=== PATIENT | male | born 1990 | race Two or more races ===

== ENCOUNTER 2020-06-22 14:29 | Outpatient (REF) | payer OTHER, SELFPAY | END 2020-06-22 14:30 | disposition home or self-care (01) | LOC: HO.LAB 14:29 | PROVIDERS: PCP Internal Medicine; Visit Provider Internal Medicine | DX: Z20.828 Contact with and (suspected) exposure to other viral communicable diseases (principal) | CPT/HCPCS: C9803; U0003 ==

== ENCOUNTER → 2020-09-06 08:17 | Outpatient (BNVA) | payer OTHER, SELFPAY | PROVIDERS: PCP Internal Medicine; Visit Provider Surgery ==

== ENCOUNTER 2020-09-25 09:13 | Outpatient (REF) | payer OTHER, SELFPAY ==
--- NOTE | ~2020-09-25 | XR_ITS ---
EXAMINATION: XR CHEST CLINICAL INFORMATION: Obesity. COMPARISON: None TECHNIQUE: 2 views of the chest were obtained. FINDINGS: No significant abnormality is noted involving the heart, lungs, mediastinum, bony thorax or soft tissues. XR/XR chest 2V IMPRESSION: Unremarkable chest examination.
--- NOTE | 2020-09-25 09:20 | ECG_ITS ---
Test Reason : E66.9 Blood Pressure : / mmHG Vent. Rate : 074 BPM Atrial Rate : 074 BPM P-R Int : 128 ms QRS Dur : 110 ms QT Int : 370 ms P-R-T Axes : 072 061 017 degrees QTc Int : 410 ms Normal sinus rhythm with sinus arrhythmia Normal ECG When compared with ECG of 17-APR-2018 20:39, Vent. rate has decreased BY 37 BPM T wave inversion no longer evident in Inferior leads Referred By: Guru Mcneil Electronically Signed By:MICHELE JOY MD
[2020-09-25 10:00] LABS: MANUAL DIFF FLAG NO
[2020-09-25 10:14] LABS: Basophils Percent Auto 0.4 % (0-2); Eosinophils Absolute Auto 0.5 X10*3/uL (0.0-0.4); Eosinophils Percent Auto 6.7 % (0-4); Hematocrit 51.2 % (42-52); Hemoglobin 17.3 g/dl (14.0-18.0); Imm Gran Abs Auto 0.02 X10*3/uL (0.00-0.03); Imm Gran Pct Auto 0.3 % (0.0-0.4); Lymphocytes Absolute Auto 2.1 X10*3/uL (1.2-4.9); Lymphocytes Percent Auto 30.3 % (20-40); Mean Corpuscular HGB Conc 33.8 g/dl (31.0-36.0); Mean Corpuscular Hemoglobin 31.1 pg (27.0-33.0); Mean Corpuscular Volume 92.1 fL (80-98); Mean Platelet Volume 10.7 fL (9.4-12.4); Monocytes Absolute Auto 0.5 X10*3/uL (0.1-1.2); Monocytes Percent Auto 6.9 % (2-11); Neutrophils Absolute Auto 3.8 X10*3/uL (2.0-8.3); Neutrophils Percent Auto 55.4 % (45-73); Platelet Count 252 X10*3/uL (160-400); Red Blood Count 5.56 X10*6/uL (4.60-5.80); Red Cell Distribution Width 11.7 % (11.0-16.0); White Blood Count 6.8 X10*3/uL (4.8-10.8)
[2020-09-25 11:02] LABS: Estimated Average Glucose 97 mg/dL
[2020-09-25 11:13] LABS: Alanine Aminotransferase 38 U/L (0-40); Albumin Level 4.3 g/dL (3.5-5.0); Alkaline Phosphatase 102 U/L (39-117); Anion Gap 13 (12-20); Aspartate Amino Transferase 25 U/L (5-37); Bilirubin Total 1.1 mg/dL (0.0-1.0); Blood Urea Nitrogen 14 mg/dL (9-16); C Reactive Protein 0.51 mg/dL (< or = 0.50); Calcium 9.2 mg/dL (8.4-10.2); Carbon Dioxide 24 mmol/L (22-29); Chloride 107 mmol/L (96-108); Cholesterol 130 mg/dL; Estimated Glomerular Filt Rate > 60; Glucose Random 95 mg/dL (60-115); HDL Cholesterol 35 mg/dL; LDL Cholesterol Calculated 65 mg/dl; Potassium 4.1 mmol/L (3.3-5.1); Sodium 140 mmol/L (135-145); Triglycerides 150 mg/dL
[2020-09-25 11:23] LABS: Folate 15.3 ng/mL (> or = 4.0); Vitamin B12 475 pg/mL (200-900)
[2020-09-25 11:25] LABS: Ferritin 228 ng/mL (20-250); TSH reflex Free T4 1.49 uIU/mL (0.32-4.0); Vitamin D 25-OH Total 12.4 ng/mL (>30)
[2020-09-26 10:32] LABS: Insulin Level Total 10.3 uIU/mL
[2020-09-26 15:22] LABS: H Pylori Breath Test DETECTED (NOT DETECTED)
[2020-09-26 16:36] LABS: Calcium (PTHI) 9.4 mg/dL (8.6-10.3); PTHI 50 pg/mL (14-64)
[2020-09-28 03:12] LABS: Zinc 96 mcg/dL (60-130)
[2020-09-29 06:42] LABS: Vitamin B1 8 nmol/L (8-30)
[2020-09-29 10:37] LABS: Vitamin A 42 mcg/dL (38-98)
== END 2020-09-25 09:14 | disposition home or self-care (01) ==
LOC: HO.LAB 09:13
PROVIDERS: PCP Internal Medicine; Visit Provider Surgery
DX: E66.9 Obesity, unspecified (principal); K21.9 Gastro-esophageal reflux disease without esophagitis; G47.30 Sleep apnea, unspecified; Z68.34 Body mass index [BMI] 34.0-34.9, adult
CPT/HCPCS: 36415; 71046; 80053; 80061; 82306; 82607; 82728; 82746; 83013; 83036; 83525; 83970; 84425; 84443; 84590; 84630; 85025; 86140; 93005; 99211

== ENCOUNTER → 2020-09-26 08:14 | Outpatient (BNVA) | payer OTHER, SELFPAY | PROVIDERS: PCP Internal Medicine; Visit Provider Surgery ==

== ENCOUNTER 2020-10-01 08:01 | Outpatient (REF) | payer OTHER, SELFPAY ==
--- NOTE | ~2020-10-01 | FL_ITS ---
EXAMINATION: XR GI SERIES CLINICAL INFORMATION: Obesity COMPARISON: None TECHNIQUE: Upper GI was performed using thin and thick barium and effervescent granules FINDINGS: Esophageal motility is normal. There is mild gastroesophageal reflux. No hernia, mass or stricture is seen. The stomach and duodenum are normal-appearing. No fold thickening, ulcer, mass or stricture is seen. FLUOROSCOPY TIME: 0.9min DOSE AREA PRODUCT: 14 foster per centimeter squared. 24 saved fluoroscopic images. FL/FL upper GI series IMPRESSION: Mild gastroesophageal reflux otherwise unremarkable exam.
--- NOTE | ~2020-10-01 | US_ITS ---
EXAMINATION: US COMPLETE ABDOMEN WITH LIVER ELASTOGRAPHY CLINICAL INFORMATION: Obesity. COMPARISON: None. TECHNIQUE: Real-time imaging of the abdominal viscera. Noninvasive ultrasound liver fibrosis assessment is performed using Brodie ElastPQ point quantification shear wave elastography (pSWE) with a C5-2 MHz transducer. Multiple elastography samples are obtained. FINDINGS: PANCREAS: The visualized pancreatic head and body are normal in appearance. The remainder of the pancreas is obscured from visualization by the overlying bowel gas. ABDOMINAL AORTA: The proximal, middle, and distal aortic segments are normal in caliber. INFERIOR VENA CAVA: Visualized portions are normal. LIVER: Normal. The liver demonstrates normal size, contour and echogenicity. No focal lesion or intrahepatic biliary duct dilatation. The right lobe measures 14.5 cm in length. The left lobe measures 10.3 cm in length. Portal flow is hepatopedal. Shear wave liver elastography median stiffness is 1.37 m/s (reference: normal median stiffness is 1.3 m/s or less). IQR/median stiffness to assess sampling precision is 0.31 (reference: good quality data set is IQR/median stiffness of 0.15 or less). GALLBLADDER: Normal. The gallbladder is physiologically distended without evidence of stones, sludge, polyps, wall thickening or pericholecystic fluid. COMMON BILE DUCT: Normal in caliber measuring 0.6 cm in diameter. RIGHT KIDNEY: Normal. No hydronephrosis. No renal calculi or focal parenchymal lesions. The kidney measures 10.9 cm in maximum dimension. LEFT KIDNEY: Normal. No hydronephrosis. No renal calculi or focal parenchymal lesions. The kidney measures 11.8 cm in maximum dimension. SPLEEN: Normal. The spleen measures 12.1 cm in maximum dimension. FREE FLUID: None. US/US abdomen comp w elastography IMPRESSION: 1. Hepatic steatosis without focal lesion. 2. Liver elastography: Median stiffness 1.37 m/s. Findings suggestive of cACLD ruled out. REFERENCE: Society of Radiologists in Ultrasound Liver Stiffness Thresholds (2020): LIVER STIFFNESS THRESHOLDS: *Liver Stiffness equal or less than 1.3 m/s: High probability of being normal. *Liver Stiffness less than 1.7 m/s: In the absence of other known clinical signs, rules out compensated advanced chronic liver disease. *Liver Stiffness 1.7-2.1 m/s: Suggestive of compensated advanced chronic liver disease but need further test for confirmation. *Liver Stiffness over 2.1 m/s: Rules in compensated advanced chronic liver disease. *Liver Stiffness over 2.4 m/s: Suggestive of clinically significant portal hypertension. QUALITY OF DATA SET: *IQR/Median value equal or less than 0.15 implies a quality data set. *IQR/Median value over 0.15 implies a poor quality data set. SIGNIFICANT CHANGE FROM PRIOR EXAM: Significant change if liver stiffness measurement is 10% or greater from prior exam. OTHER CONSIDERATIONS: The stage of liver fibrosis may be overestimated in the setting of acute hepatitis, liver inflammation, elevated liver function tests, hepatic vascular congestion, obstructive cholestasis, non-fasting state, and infiltrative diseases such as amyloidosis and lymphoma. In some patients with NAFLD, the liver stiffness thresholds for compensated advanced chronic liver disease may be lower. In causes other than viral hepatitis and NAFLD, liver stiffness thresholds are not well established.
== END 2020-10-01 08:02 | disposition home or self-care (01) ==
LOC: HO.US 08:01
PROVIDERS: PCP Internal Medicine; Visit Provider Surgery
DX: Z01.818 Encounter for other preprocedural examination (principal); E66.01 Morbid (severe) obesity due to excess calories; Z68.34 Body mass index [BMI] 34.0-34.9, adult; K21.9 Gastro-esophageal reflux disease without esophagitis; G47.30 Sleep apnea, unspecified
CPT/HCPCS: 74240; 76705; 76981

== ENCOUNTER → 2020-10-03 10:03 | Outpatient (BNVA) | payer OTHER, SELFPAY | PROVIDERS: PCP Internal Medicine; Visit Provider Dietitian, Registered ==

== ENCOUNTER 2020-10-16 13:39 | Outpatient (REF) | payer OTHER, SELFPAY ==
[2020-10-17 12:38] LABS: CT PCR NOT DETECTED (Not Detect.); NG PCR NOT DETECTED (Not Detect.)
== END 2020-10-16 13:40 | disposition home or self-care (01) ==
LOC: HO.LAB 13:39
PROVIDERS: Visit Provider Nurse Practitioner Family
DX: Z11.3 Encounter for screening for infections with a predominantly sexual mode of transmission (principal); N48.1 Balanitis
CPT/HCPCS: 87491; 87591

== ENCOUNTER → 2020-10-22 08:14 | Outpatient (BNVA) | payer OTHER, SELFPAY | PROVIDERS: PCP Internal Medicine; Visit Provider Surgery ==

== ENCOUNTER → 2020-11-14 08:20 | Outpatient (BNVA) | payer OTHER, SELFPAY | PROVIDERS: PCP Internal Medicine; Visit Provider Surgery ==

== ENCOUNTER → 2020-11-22 08:12 | Outpatient (BNVA) | payer OTHER, SELFPAY | PROVIDERS: PCP Internal Medicine; Visit Provider Dietitian, Registered | DX: E66.9 Obesity, unspecified (principal); Z68.30 Body mass index [BMI] 30.0-30.9, adult | CPT/HCPCS: 97803 ==

== ENCOUNTER → 2020-12-25 07:29 | Outpatient (BNVA) | payer OTHER, SELFPAY | PROVIDERS: PCP Internal Medicine; Visit Provider Surgery ==

== ENCOUNTER 2022-03-07 | Outpatient (REF) | payer OTHER, SELFPAY ==
[2022-03-11 11:27] LABS: H Pylori Breath Test Negative (Negative)
== END 2022-03-07 00:01 | disposition home or self-care (01) ==
LOC: HO.LNP
PROVIDERS: Visit Provider Physician Assistant Surgical
DX: E66.9 Obesity, unspecified (principal)
CPT/HCPCS: 83013

== ENCOUNTER → 2022-03-07 11:03 | Outpatient (BNVA) | payer OTHER, SELFPAY | PROVIDERS: PCP Internal Medicine; Visit Provider Physician Assistant Surgical | DX: E66.9 Obesity, unspecified (principal); Z68.34 Body mass index [BMI] 34.0-34.9, adult | CPT/HCPCS: 99211; 99212 ==

== ENCOUNTER 2022-03-12 12:08 | Outpatient (REF) | payer OTHER, SELFPAY ==
--- NOTE | 2022-03-12 12:15 | ECG_ITS ---
Test Reason : E66.9 OBESITY Blood Pressure : / mmHG Vent. Rate : 079 BPM Atrial Rate : 079 BPM P-R Int : 130 ms QRS Dur : 096 ms QT Int : 388 ms P-R-T Axes : 050 053 037 degrees QTc Int : 444 ms Normal sinus rhythm Normal ECG When compared with ECG of 25-SEP-2020 08:30, No significant change was found Referred By: Maurisio Lo Electronically Signed By:ALEJANDRA SEVILLA
[2022-03-12 12:37] LABS: MANUAL DIFF FLAG NO
[2022-03-12 13:40] LABS: Basophils Percent Auto 0.4 % (0-2); Eosinophils Absolute Auto 0.5 X10*3/uL (0.0-0.4); Eosinophils Percent Auto 6.1 % (0-4); Hematocrit 50.1 % (42.0-52.0); Hemoglobin 16.9 g/dl (14.0-18.0); Imm Gran Abs Auto 0.02 X10*3/uL (0.00-0.03); Imm Gran Pct Auto 0.3 % (0.0-0.4); Lymphocytes Absolute Auto 1.8 X10*3/uL (1.2-4.9); Lymphocytes Percent Auto 23.1 % (20-40); Mean Corpuscular HGB Conc 33.7 g/dl (31.0-36.0); Mean Corpuscular Hemoglobin 30.8 pg (27.0-33.0); Mean Corpuscular Volume 91.3 fL (80.0-98.0); Monocytes Absolute Auto 0.5 X10*3/uL (0.1-1.2); Monocytes Percent Auto 6.5 % (2-11); Neutrophils Absolute Auto 4.9 x10*3/uL (2.0-8.3); Neutrophils Percent Auto 63.6 % (45-73); Platelet Count 250 X10*3/uL (160-400); Red Blood Count 5.49 X10*6/uL (4.60-5.80); Red Cell Distribution Width 11.5 % (11.0-16.0); White Blood Count 7.7 X10*3/uL (4.8-10.8)
[2022-03-12 13:52] LABS: Estimated Average Glucose 97 mg/dL
[2022-03-12 14:16] LABS: Alanine Aminotransferase 49 U/L (0-40); Albumin Level 4.2 g/dL (3.5-5.0); Alkaline Phosphatase 99 U/L (39-117); Anion Gap 16 (12-20); Aspartate Amino Transferase 26 U/L (5-37); Bilirubin Total 1.2 mg/dL (0.0-1.0); Blood Urea Nitrogen 18 mg/dL (9-16); C Reactive Protein 0.87 mg/dL (< or = 0.50); Calcium 9.4 mg/dL (8.4-10.2); Carbon Dioxide 23 mmol/L (22-29); Chloride 103 mmol/L (96-108); Cholesterol 140 mg/dL; Estimated Glomerular Filt Rate > 60; Glucose Random 93 mg/dL (60-115); HDL Cholesterol 42 mg/dL; Iron 176 mcg/dL (45-160); LDL Cholesterol Calculated 61 mg/dl; Percent Iron Saturation 40 % (15-50); Potassium 4.3 mmol/L (3.3-5.1); Sodium 138 mmol/L (135-145); Total Iron Binding Capacity 435 mcg/dL (228-428); Total Protein 7.2 g/dL (6.5-8.0); Triglycerides 189 mg/dL; Unsaturated Iron Binding 259 ug/dL
[2022-03-12 14:26] LABS: Ferritin 353 ng/mL (20-250); Insulin 34 uU/mL (2-29); TSH reflex Free T4 1.72 uIU/mL (0.32-4.0); Vitamin D 25-OH Total 9.4 ng/mL (>30)
[2022-03-12 14:43] LABS: Folate 9.8 ng/mL (> or = 4.0); Vitamin B12 315 pg/mL (200-900)
[2022-03-13 12:26] LABS: Calcium (PTHI) 9.6 mg/dL (8.6-10.3); PTHI 42 pg/mL (16-77)
[2022-03-16 08:22] LABS: Zinc 70 mcg/dL (60-130)
[2022-03-17 13:37] LABS: Vitamin B1 6 nmol/L (8-30)
[2022-03-19 00:51] LABS: Vitamin A 55 mcg/dL (38-98)
== END 2022-03-12 12:09 | disposition home or self-care (01) ==
LOC: HO.LAB 12:08
PROVIDERS: PCP Internal Medicine; Visit Provider Physician Assistant Surgical
DX: E66.9 Obesity, unspecified (principal)
CPT/HCPCS: 36415; 80053; 80061; 82306; 82607; 82728; 82746; 83036; 83525; 83540; 83970; 84425; 84443; 84590; 84630; 85025; 86140; 93005

== ENCOUNTER → 2022-04-01 09:00 | Outpatient (BNVA) | payer OTHER, SELFPAY | PROVIDERS: PCP Internal Medicine; Referring Provider Physician Assistant Surgical; Visit Provider Counselor Mental Health | DX: F43.20 Adjustment disorder, unspecified (principal); E66.9 Obesity, unspecified | CPT/HCPCS: 90791 ==

== ENCOUNTER → 2022-04-03 10:17 | Outpatient (BNVA) | payer OTHER, SELFPAY | PROVIDERS: PCP Internal Medicine; Visit Provider Dietitian, Registered | DX: E66.9 Obesity, unspecified (principal); Z68.33 Body mass index [BMI] 33.0-33.9, adult | CPT/HCPCS: 97802 ==

== ENCOUNTER 2022-12-19 13:30 | Outpatient (REF) | payer OTHER, SELFPAY ==
[2022-12-19 13:49] LABS: MANUAL DIFF FLAG NO
[2022-12-19 13:57] LABS: Basophils Percent Auto 0.1 % (0-2); Eosinophils Absolute Auto 0.1 X10*3/uL (0.0-0.4); Eosinophils Percent Auto 1.3 % (0-4); Hematocrit 49.7 % (42.0-52.0); Hemoglobin 17.4 g/dl (14.0-18.0); Imm Gran Abs Auto 0.02 X10*3/uL (0.00-0.03); Imm Gran Pct Auto 0.2 % (0.0-0.4); Lymphocytes Absolute Auto 1.9 X10*3/uL (1.2-4.9); Lymphocytes Percent Auto 22.7 % (20-40); Mean Corpuscular Hemoglobin 31.1 pg (27.0-33.0); Mean Corpuscular Volume 88.9 fL (80.0-98.0); Mean Platelet Volume 10.8 fL (9.4-12.4); Monocytes Absolute Auto 0.4 X10*3/uL (0.1-1.2); Monocytes Percent Auto 4.2 % (2-11); Neutrophils Absolute Auto 5.9 x10*3/uL (2.0-8.3); Neutrophils Percent Auto 71.5 % (45-73); Platelet Count 192 X10*3/uL (160-400); Red Blood Count 5.59 X10*6/uL (4.60-5.80); Red Cell Distribution Width 11.6 % (11.0-16.0); White Blood Count 8.3 X10*3/uL (4.8-10.8)
[2022-12-19 14:13] LABS: Estimated Average Glucose 94 mg/dL; Hemoglobin A1c % 4.9 %
[2022-12-19 14:46] LABS: Alanine Aminotransferase 46 U/L (0-40); Albumin Level 4.4 g/dL (3.5-5.0); Alkaline Phosphatase 91 U/L (39-117); Anion Gap 15 (12-20); Aspartate Amino Transferase 30 U/L (5-37); Bilirubin Total 1.4 mg/dL (0.0-1.0); Blood Urea Nitrogen 13 mg/dL (9-16); Calcium 9.6 mg/dL (8.4-10.2); Carbon Dioxide 21 mmol/L (22-29); Chloride 106 mmol/L (96-108); Cholesterol 144 mg/dL; Estimated Glomerular Filt Rate > 60; Glucose Fasting 90 mg/dL (60-99); HDL Cholesterol 32 mg/dL; LDL Cholesterol Calculated 80 mg/dl; Potassium 4.3 mmol/L (3.3-5.1); Sodium 138 mmol/L (135-145); Total Protein 7.6 g/dL (6.5-8.0); Triglycerides 160 mg/dL
[2022-12-19 15:17] LABS: Folate 12.7 ng/mL (> or = 4.0); TSH reflex Free T4 1.23 uIU/mL (0.32-4.0); Vitamin B12 521 pg/mL (200-900); Vitamin D 25-OH Total 14.4 ng/mL (>30)
== END 2022-12-19 13:31 | disposition home or self-care (01) ==
LOC: HO.LAB 13:30
PROVIDERS: PCP Internal Medicine; Visit Provider Nurse Practitioner Family
DX: I10 Essential (primary) hypertension (principal); J45.909 Unspecified asthma, uncomplicated; K21.9 Gastro-esophageal reflux disease without esophagitis; Z72.0 Tobacco use
CPT/HCPCS: 36415; 80053; 80061; 82306; 82607; 82746; 83036; 84443; 85025

== ENCOUNTER 2023-02-10 13:31 | Outpatient (AMB) | payer OTHER, SELFPAY ==
--- NOTE | 2023-02-10 13:41 | A.OFFVIS_ITS ---
Intake VS Expanded 02/10/23 13:52 Height 5 ft 11 in Weight 258 lb 6.108 oz BMI 36.0 BP 159/90 H Blood Pressure Location Lt brachial Blood Pressure Position Sitting Pulse 90 Temp 97.7 F Temperature Source Temporal Artery Scan Pulse Oximetry 97 Oxygen Delivery Method Room Air Body Fat 87 Body Fat Percentage 34.1 Free Fat Mass 168.0 Muscle Mass 159.8 Visceral Mass 15.0 Water Mass 118.0 BMR 2,330 Neck Circumference 17 in Waist Circumference 3 ft 11 in Intake Visit Reasons: (OV) Gastric Balloon *ARRIVE AT 1 PM* Intake Note: Patient here for gastric balloon consult. Reports rx for Liraglutide (Saxenda) denied by health insurance. Destination Specialist Required: No Rock Climbing Instructor: Rock Climbing Instructor offered & declined Accompanied by: Self / Same As Patient Allergies fluoxetine [Prozac] Allergy (Unknown, Verified 02/10/23 13:52) Unknown Wellbutrin Allergy (Unknown, Uncoded 02/10/23 13:52) Unknown Medication List - Last Reconciled 02/10/23 by Matty Marquez MD albuterol sulfate 2.5 mg (3 mL) inhalation Q4-6H PRN 90 days albuterol sulfate 90 mcg/actuation 1 inh inhalation Q4-6H PRN cholecalciferol (vitamin D3) 50 mcg PO DAILY fluticasone propion-salmeterol 250-50 mcg/dose (Advair Diskus) 1 inh inhalation BID hydrochlorothiazide 12.5 mg PO DAILY nebulizers (Aeroneb Go Nebulizer) As directed nicotine 1 patch transdermal DAILY HPI HPI Comments History of Present Illness Details The patient is a 32-year-old gentleman with a history of obstructive sleep apnea on CPAP, hypertension, asthma, GERD was a cigarette smoker. He is interested in Orbera gastric balloon because of a lifelong struggle with obesity and the afore mentioned comorbidities. Patient enrolled in the surgical weight loss program here at [facility] 09/06/20 , was noted to be H pylori positive but negative on the retest and dropped out somewhere between December 25, 2020 and 03/07/2022. He reestablished entry into the surgical weight loss program 03/07/2022 and dropped out again. Per PCP notes from 12/18/22, the patient enrolled in [facility] program Nov, 2022 and reports that due to a recurring issue with appointments being canceled and rescheduled, he decided to return here. The patient presents today at a weight of 258 lb/BMI 36.0. He reports his heaviest weight as 258/BMI 36.0. He has tried numerous medical weight loss methods, all resulted in eventual weight regain. The patient notes that his cigarette smoking his increased to 7-8 cigarettes a day with resultant worsening of GERD as well as increased in weight. He notes that he lives with his fiancee, who is also a smoker with a weight problem and his [id number] who is a smoker who is also obese. Data from his original entry in 2020: ESS 10 GERD 16 (not satisfied with management) DAVID 2 QOL 103 PFSH Medical History Asthma Back pain GERD (gastroesophageal reflux disease) Hypertension Surgical History No pertinent past surgical history Family History Father Myocardial infarction Mother HTN (hypertension) Diabetes Maternal Grandmother Stomach cancer Maternal Grandfather Prostate cancer Maternal Aunt Metastasis to breast Maternal Aunt Breast cancer Brother No problems noted. Brother No problems noted. Brother No problems noted. Brother No problems noted. Sister No problems noted. Daughter No problems noted. Social History Household Members: Family Housing: Apartment Alcohol intake: current Alcohol intake frequency: a few times a week Patient Tobacco Use Status: Current everyday Tobacco user Tobacco use type: Cigarette Cigarettes Per Day: 5 e-Cigarette/Vaping Use: Never Used Second Hand Smoke Exposure: No Current occupational status: employed Cognitive needs: No Hearing needs: No Vision needs: No Review of Systems Const All systems reviewed & are unremarkable except as noted in HPI and below Reports as per HPI Physical Exam The patient is non-toxic & in good spirits NC/AT, PERRLA, EOMI Mood, affect & judgment all appear appropriate Sclera anicteric conjunctiva pink and moist The patient is in no acute respiratory distress Abdomen is obese Assessment & Plan Assessment & Plan (1) BMI 35.0-35.9,adult: Code(s): Z68.35 - Body mass index [BMI] 35.0-35.9, adult (2) Hypertension: Code(s): I10 - Essential (primary) hypertension (3) Obstructive sleep apnea: Comment: Mild 2018 Code(s): G47.33 - Obstructive sleep apnea (adult) (pediatric) (4) Asthma: Code(s): J45.909 - Unspecified asthma, uncomplicated (5) Tobacco abuse: Code(s): Z72.0 - Tobacco use Plan Using a teaching rough rice tender, I reviewed options including medical weight loss, surgical weight loss and the Orbera balloon. The importance of proper diet, increased activity and mandate of nicotine cessation was discussed with the patient and apparently understood. We reviewed the inherent risks of the Orbera balloon including aspiration, perforation, intolerance, weight regain; the patient stated candidly he cannot afford the procedure due to the out of pocket cost and wanted more information regarding sleeve gastrectomy. We reviewed options regarding gastric bypass and sleeve gastrectomy. I think the patient is an excellent candidate for sleeve gastrectomy and he would like to proceed. The importance of diet, exercise and weight loss in the inherent risk of weight regain if maladaptive eating and sedentary behavior return as well as the risks of nicotine use were discussed and apparently understood. The patient would like to re-enter the surgical weight loss program and realizes that he will need a plan regarding nicotine cessation. I will see him back in 3 weeks. Medications: New pantoprazole 40 mg PO DAILY 30 tabs 2RF Coding Level of Care Code Est Pt Level 5 (12144) Diagnoses BMI 35.0-35.9,adult Z68.35 Hypertension I10 Obstructive sleep apnea G47.33 Asthma J45.909 Tobacco abuse Z72.0 Time Spent (min) 66
[2023-02-10 13:52] VITALS: BP 159/90; PULSE 90; TEMP 36.5; O2SAT 97; BMI 36.0
== END 2023-02-10 14:00 | disposition home or self-care (01) ==
PROVIDERS: PCP Internal Medicine; Visit Provider Surgery
DX: E66.01 Morbid (severe) obesity due to excess calories (principal); Z68.35 Body mass index [BMI] 35.0-35.9, adult
CPT/HCPCS: 99215

== ENCOUNTER → 2023-02-10 13:31 | Outpatient (BNVA) | payer OTHER, SELFPAY | PROVIDERS: PCP Internal Medicine; Visit Provider Surgery | DX: A04.8 Other specified bacterial intestinal infections (principal); K21.9 Gastro-esophageal reflux disease without esophagitis; J45.909 Unspecified asthma, uncomplicated; I10 Essential (primary) hypertension; E55.9 Vitamin D deficiency, unspecified; G47.33 Obstructive sleep apnea (adult) (pediatric); Z68.35 Body mass index [BMI] 35.0-35.9, adult; Z72.0 Tobacco use; Z99.89 Dependence on other enabling machines and devices | CPT/HCPCS: 99212 ==

== ENCOUNTER 2023-02-17 14:20 | Outpatient (AMB) | payer OTHER, SELFPAY ==
--- NOTE | 2023-02-17 14:08 | A.OFFVIS_ITS ---
Intake Intake Visit Reasons: VIDEO Initial Nutrition SWL Allergies fluoxetine [Prozac] Allergy (Unknown, Verified 02/10/23 13:52) Unknown Wellbutrin Allergy (Unknown, Uncoded 02/10/23 13:52) Unknown HPI Nutrition Presentation Details I met with patient last year 2021 Reason for consult elevated BMI Diet Assmnt Details 2 meals per day cottage cheese for lunch; dinner was 7oz pork chop in the oven and broccoli and rice Was using premier protein shakes premade- plans to continue to use these but [facility]. Exercise: I haven't started exercising, I don't have an excuse I'm just lazy . Has a treadmill in basement Completed all online classes and scored well in Mar 2022. He is receptive to taking them again. Dietary counseling reduction Diagnosis Nutrition problem #1 overweight/obesity As related to (etiology) #1 excess energy intake and physical inactivity As evidenced by (sign/symptom) #1 high BMI Monitoring/Goals Nutrition problem monitoring total energy intake, level of knowledge/skill, total PRO intake, total CHO intake, weight and oral fluids Outcome progress progressing Learning/Education Readiness to learn excellent Stages of change action Educational materials provided Yes Most Recent Diabetes Results: Cholesterol 144 mg/dL 12/19/22 HDL Cholesterol 32 mg/dL 12/19/22 Triglycerides 160 mg/dL 12/19/22 Creatinine 0.81 mg/dL (0.5-1.4) 12/19/22 Blood Urea Nitrogen 13 mg/dL (9-16) 12/19/22 Sodium 138 mmol/L (135-145) 12/19/22 Potassium 4.3 mmol/L (3.3-5.1) 12/19/22 Chloride 106 mmol/L (96-108) 12/19/22 Carbon Dioxide 21 mmol/L (22-29) L 12/19/22 Calcium 9.6 mg/dL (8.4-10.2) 12/19/22 AST 30 U/L (5-37) 12/19/22 ALT 46 U/L (0-40) H 12/19/22 Total Protein 7.6 g/dL (6.5-8.0) 12/19/22 Albumin 4.4 g/dL (3.5-5.0) 12/19/22 PFSH Medical History Asthma Back pain GERD (gastroesophageal reflux disease) Hypertension Surgical History No pertinent past surgical history Family History Father Myocardial infarction Mother HTN (hypertension) Diabetes Maternal Grandmother Stomach cancer Maternal Grandfather Prostate cancer Maternal Aunt Metastasis to breast Maternal Aunt Breast cancer Brother No problems noted. Brother No problems noted. Brother No problems noted. Brother No problems noted. Sister No problems noted. Daughter No problems noted. Social History Household Members: Family Housing: Apartment Alcohol intake: current Alcohol intake frequency: a few times a week Patient Tobacco Use Status: Current everyday Tobacco user Tobacco use type: Cigarette Cigarettes Per Day: 5 e-Cigarette/Vaping Use: Never Used Second Hand Smoke Exposure: No Current occupational status: employed Cognitive needs: No Hearing needs: No Vision needs: No Assessment & Plan Assessment & Plan (1) Obesity (BMI 30-39.9): Code(s): E66.9 - Obesity, unspecified Patient Instructions: Pt will likely be a good candidate. When he is able to begin his protein shakes, he will start with one for breakfast in the AM, continue the rest of eating routine. Will take classes up 1-6 and follow up in 1 month Telehealth Telehealth Location of provider rendering services: practice address Location of patient: address on file Patient Identification confirmed using: Name, : Yes Telehealth method: video Patient verbally consented to treatment: Yes Patient verbally consented to billing insurance company: Yes Patient informed of any privacy concerns related to visit: Yes Minutes spent on Phone/Video with Pt.: 30 Coding Level of Care Code Nutr Indiv Subseq (54499) Diagnoses Obesity (BMI 30-39.9) E66.9 Time Spent (min) 30
== END 2023-02-17 14:33 | disposition home or self-care (01) ==
LOC: HO.HBS 14:20
PROVIDERS: PCP Internal Medicine; Visit Provider Dietitian, Registered
DX: E66.9 Obesity, unspecified (principal)

== ENCOUNTER → 2023-02-17 14:20 | Outpatient (BNVA) | payer OTHER, SELFPAY | PROVIDERS: PCP Internal Medicine; Visit Provider Dietitian, Registered | DX: E66.9 Obesity, unspecified (principal) | CPT/HCPCS: 97803 ==

== ENCOUNTER 2023-03-02 13:36 | Outpatient (REF) | payer OTHER, SELFPAY ==
[2023-03-02 13:59] LABS: MANUAL DIFF FLAG NO
[2023-03-02 14:40] LABS: Basophils Percent Auto 0.3 % (0-2); Eosinophils Absolute Auto 0.2 X10*3/uL (0.0-0.4); Eosinophils Percent Auto 3.1 % (0-4); Hematocrit 49.5 % (42.0-52.0); Hemoglobin 17.3 g/dl (14.0-18.0); Imm Gran Abs Auto 0.02 X10*3/uL (0.00-0.03); Imm Gran Pct Auto 0.3 % (0.0-0.4); Lymphocytes Absolute Auto 1.7 X10*3/uL (1.2-4.9); Lymphocytes Percent Auto 26.8 % (20-40); Mean Corpuscular HGB Conc 34.9 g/dl (31.0-36.0); Mean Corpuscular Hemoglobin 31.4 pg (27.0-33.0); Mean Corpuscular Volume 89.8 fL (80.0-98.0); Mean Platelet Volume 10.8 fL (9.4-12.4); Monocytes Absolute Auto 0.4 X10*3/uL (0.1-1.2); Monocytes Percent Auto 6.5 % (2-11); Neutrophils Absolute Auto 4.1 x10*3/uL (2.0-8.3); Platelet Count 230 X10*3/uL (160-400); Red Blood Count 5.51 X10*6/uL (4.60-5.80); Red Cell Distribution Width 11.9 % (11.0-16.0); White Blood Count 6.5 X10*3/uL (4.8-10.8)
[2023-03-02 14:50] LABS: Estimated Average Glucose 94 mg/dL; Hemoglobin A1c % 4.9 % (<6.0)
[2023-03-02 15:18] LABS: Alanine Aminotransferase 40 U/L (0-40); Albumin Level 4.3 g/dL (3.5-5.0); Alkaline Phosphatase 91 U/L (39-117); Anion Gap 14 (12-20); Aspartate Amino Transferase 32 U/L (5-37); Bilirubin Total 0.9 mg/dL (0.0-1.0); Blood Urea Nitrogen 11 mg/dL (9-16); C Reactive Protein 0.63 mg/dL (< or = 0.50); Calcium 9.9 mg/dL (8.4-10.2); Carbon Dioxide 29 mmol/L (22-29); Chloride 105 mmol/L (96-108); Cholesterol 137 mg/dL (<200); Estimated Glomerular Filt Rate > 60; Glucose Random 91 mg/dL (60-115); HDL Cholesterol 44 mg/dL (>40); Iron 149 mcg/dL (45-160); LDL Cholesterol Calculated 67 mg/dL (<100); Percent Iron Saturation 38 % (15-50); Potassium 4.5 mmol/L (3.3-5.1); Sodium 143 mmol/L (135-145); Total Iron Binding Capacity 391 mcg/dL (228-428); Total Protein 7.6 g/dL (6.5-8.0); Triglycerides 134 mg/dL (<150); Unsaturated Iron Binding 242 ug/dL
[2023-03-02 15:34] LABS: Ferritin 244 ng/mL (20-250); Insulin 13 uU/mL (2-29)
[2023-03-02 15:46] LABS: Folate 8.5 ng/mL (> or = 4.0); Vitamin B12 364 pg/mL (200-900)
[2023-03-03 14:13] LABS: Calcium (PTHI) 9.6 mg/dL (8.6-10.3); PTHI 70 pg/mL (16-77)
[2023-03-05 12:54] LABS: Zinc 74 mcg/dL (60-130)
[2023-03-05 14:36] LABS: H Pylori Breath Test Negative (Negative)
[2023-03-06 02:44] LABS: Vitamin A 49 mcg/dL (38-98)
[2023-03-06 13:17] LABS: Vitamin B1 <6 nmol/L (8-30)
== END 2023-03-02 13:37 | disposition home or self-care (01) ==
LOC: HO.LAB 13:36
PROVIDERS: PCP Internal Medicine; Visit Provider Surgery
DX: A04.8 Other specified bacterial intestinal infections (principal); K21.9 Gastro-esophageal reflux disease without esophagitis; E55.9 Vitamin D deficiency, unspecified; G47.33 Obstructive sleep apnea (adult) (pediatric); I10 Essential (primary) hypertension; Z72.0 Tobacco use
CPT/HCPCS: 36415; 80053; 80061; 82306; 82607; 82728; 82746; 83013; 83036; 83525; 83540; 83970; 84425; 84443; 84590; 84630; 85025; 86140; 99212

== ENCOUNTER 2023-03-02 14:01 | Outpatient (AMB) | payer OTHER, SELFPAY ==
--- NOTE | 2023-03-02 14:08 | A.OFFVIS_ITS ---
Intake VS Expanded 03/02/23 14:09 Height 5 ft 11 in Weight 249 lb 14.4 oz BMI 34.9 BP 158/100 H Blood Pressure Location Rt brachial Blood Pressure Position Sitting Pulse 98 Pulse Source Pulse Oximeter Temp 97.5 F Temperature Source Tympanic Pulse Oximetry 99 Oxygen Delivery Method Room Air Body Fat 81.2 Body Fat Percentage 32.5 Free Fat Mass 168.2 Muscle Mass 160.0 Visceral Mass 14.0 Water Mass 119.0 BMR 2,323 Intake Visit Reasons: (OV) F/U SWL + H.Pylori Training And Development Officer Required: No Instructor Ground Services: Instructor Ground Services offered & declined Allergies fluoxetine [Prozac] Allergy (Unknown, Verified 03/02/23 14:18) Unknown Wellbutrin Allergy (Unknown, Uncoded 03/02/23 14:18) Unknown HPI HPI Comments History of Present Illness Details The patient is a 32-year-old gentleman with a history of obstructive sleep apnea on CPAP, hypertension, asthma, GERD was a cigarette smoker. He is interested in laparoscopic sleeve gastrectomy because of numerous attempts of medical weight loss with resultant weight regain. Patient enrolled in the surgical weight [place] program [place] [facility] [place]06[place] , was noted to be H pylori positive but negative on the retest and dropped out somewhere between December 25, 2020 and 03/07/2022. He reestablished entry into the surgical weight loss program 03/07/2022 and dropped out again. Per PCP notes from 12/18/22, the patient enrolled in [facility] program Nov, 2022 and reports that due to a recurring issue with appointments being canceled and rescheduled, he decided to return here. The patient presents today with a weight of 249.4, which is down 9lbs from his last visit, which was his heaviest adult weight of 258 lb/BMI 36.0. We reviewed his pre surgical goal weight of 232 lb after 25 lb of weight loss/10% of his entry weight. We also reviewed the importance of nicotine cessation which will include not using nicotine gum, nicotine lozenges or nicotine patches since they cause gastric acid production which can cause surgical complications. He met with Luciana Thompson and is following her recommendations regarding diet without any issues. He does note some bowel irregularity which we disc ussed and ongoing GERD which will be managed with Protonix. The patient notes that his cigarette smoking has decreased to 5-6 cigarettes a day. He is still experiencing GERD in spite of his 9 lb weight loss and was unable to obtain his Protonix due to insurance changes; he requested that I resubmitted Protonix to [facility] on [address] in check a P which was done today. He notes that he lives with his fiangeloe, who is also a smoker with a weight problem and his [id number] who is a smoker who is also obese. Meal plan: Patient awakens 07:30am patient goes to bed at midnight to 00:30am He is having a Premier protein premade shake with 30 g of protein Lunch is usually around noon to 01:00 o'clock and includes 8 oz of cottage cheese Patient's dinner is 6 oz of lean protein with green vegetables, usually bra clear spinach His current snacks include Quest chips. 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 His current exercise regime is treadmill with alternating inclines for 45 minutes 3 days a week The goal to increase to 4 days per week was discussed and the patient will proceed Data from his original entry in 2020: ESS 10 GERD 16 (not satisfied with management) DAVID 2 QOL 103 PFSH Medical History Asthma Back pain GERD (gastroesophageal reflux disease) Hypertension Surgical History No pertinent past surgical history Family History Father Myocardial infarction Mother HTN (hypertension) Diabetes Maternal Grandmother Stomach cancer Maternal Grandfather Prostate cancer Maternal Aunt Metastasis to breast Maternal Aunt Breast cancer Brother No problems noted. Brother No problems noted. Brother No problems noted. Brother No problems noted. Sister No problems noted. Daughter No problems noted. Social History Household Members: Family Housing: Apartment Alcohol intake: current Alcohol intake frequency: a few times a week Patient Tobacco Use Status: Current everyday Tobacco user Tobacco use type: Cigarette Cigarettes Per Day: 5 e-Cigarette/Vaping Use: Never Used Second Hand Smoke Exposure: No Current occupational status: employed Cognitive needs: No Hearing needs: No Vision needs: No Review of Systems Const All systems reviewed & are unremarkable except as noted in HPI and below Reports as per HPI Physical Exam Vital Signs: Last Vital Signs Temp 97.5 F 03/02/23 14:09 Pulse 98 03/02/23 14:09 BP 158/100 H 03/02/23 14:09 Pulse Ox 99 03/02/23 14:09 Oxygen Delivery Method Room Air 03/02/23 14:09 BMI result Body Mass Index 34.9 On exam he is anicteric and nontoxic He is in no acute respiratory distress Abdomen is obese and soft with no tenderness No lower extremity edema is present on today's visit Results Reviewed Results Reviewed: Diagnostic imaging Scheduled for March 30 Patient tested fasting labs today, 03/02 Assessment & Plan Assessment & Plan (1) BMI 34.0-34.9,adult: Code(s): Z68.34 - Body mass index [BMI] 34.0-34.9, adult (2) GERD (gastroesophageal reflux disease): Code(s): K21.9 - Gastro-esophageal reflux disease without esophagitis (3) Obstructive sleep apnea: Comment: Mild 2018 Code(s): G47.33 - Obstructive sleep apnea (adult) (pediatric) (4) Asthma: Code(s): J45.909 - Unspecified asthma, uncomplicated (5) Tobacco abuse: Code(s): Z72.0 - Tobacco use (6) Hypertension: Code(s): I10 - Essential (primary) hypertension Plan The patient is congratulated on his ongoing healthy lifestyle changes and 9 lb weight loss. He remains interested in laparoscopic sleeve gastrectomy and understands that he needs to lose 10% or 25 lb to reach a goal weight of 232 lb for surgery. In addition, he needs to quit all nicotine use a month before surgery and it is recommended to abstain from nicotine for the rest of his life. This is to minimize the risks of gastric ulceration/gastritis, healing complications that could promote hernia and also the increased risk for cardiovascular issues, cancer and premature . Patient does note the home situation is difficult regarding his fiancee and mother smoking. Will discuss at his next visit Patient will continue his current meal plan. He will increase his exercise to 4 times a week and if he can tolerated, increase to to 5 times per week. He will reach out to me with any questions regarding his meal plan. Patient will obtain his Protonix and begin taking; he has working with his PCP regarding nicotine cessation; inulin fiber gummy will be started regarding his bowel issues/constipation; if he has no resolution or problems, alternate plan of docusate was discussed. Patient will see me for 45 minute visit after March 30 so we can review both his labs and diagnostic imaging. He is set a goal to be nicotine free at that visit. Typical postoperative recommendations regarding 1-2 weeks out of work to concentrate on his health and the importance of hydration, following the postoperative meal plan was discussed and apparently understood. Patient is understandably anxious to proceed with surgery, hopefully this year. Medications: New inulin (Fiber Gummies) 2 grams PO BID-TID 60 tabs 4RF constipation pantoprazole 40 mg PO QAM 30 days 30 tabs 4RF Discontinued pantoprazole Discontinued Reason: Doctor's Order 40 mg PO DAILY 30 tabs 2RF Coding Level of Care Code Est Pt Level 4 (23253) Diagnoses BMI 34.0-34.9,adult Z68.34 GERD (gastroesophageal reflux disease) K21.9 Obstructive sleep apnea G47.33 Asthma J45.909 Tobacco abuse Z72.0 Hypertension I10
[2023-03-02 14:09] VITALS: BP 158/100; PULSE 98; TEMP 36.4; O2SAT 99; BMI 34.9
== END 2023-03-02 14:50 | disposition home or self-care (01) ==
PROVIDERS: PCP Internal Medicine; Visit Provider Surgery
DX: E66.9 Obesity, unspecified (principal); Z68.34 Body mass index [BMI] 34.0-34.9, adult; K21.9 Gastro-esophageal reflux disease without esophagitis; G47.33 Obstructive sleep apnea (adult) (pediatric); J45.909 Unspecified asthma, uncomplicated
CPT/HCPCS: 99214

== ENCOUNTER → 2023-03-12 13:07 | Outpatient (BNVA) | payer OTHER, SELFPAY | PROVIDERS: PCP Internal Medicine; Visit Provider Dietitian, Registered | DX: E66.9 Obesity, unspecified (principal); Z68.34 Body mass index [BMI] 34.0-34.9, adult; Z71.3 Dietary counseling and surveillance | CPT/HCPCS: 97803 ==

== ENCOUNTER 2023-03-18 13:00 | Outpatient (AMB) | payer OTHER, SELFPAY ==
--- NOTE | 2023-03-18 13:19 | A.OFFWM_ITS ---
Intake Intake Visit Reasons: VIDEO BH Intake Allergies fluoxetine [Prozac] Allergy (Unknown, Verified 03/02/23 14:18) Unknown Wellbutrin Allergy (Unknown, Uncoded 03/02/23 14:18) Unknown [facility] Medical History Asthma Back pain GERD (gastroesophageal reflux disease) Hypertension Surgical History No pertinent past surgical history Family History Father Myocardial infarction Mother HTN (hypertension) Diabetes Maternal Grandmother Stomach cancer Maternal Grandfather Prostate cancer Maternal Aunt Metastasis to breast Maternal Aunt Breast cancer Brother No problems noted. Brother No problems noted. Brother No problems noted. Brother No problems noted. Sister No problems noted. Daughter No problems noted. Social History Household Members: Family Housing: Apartment Alcohol intake: current Alcohol intake frequency: a few times a week Patient Tobacco Use Status: Current everyday Tobacco user Tobacco use type: Cigarette Cigarettes Per Day: 5 e-Cigarette/Vaping Use: Never Used Second Hand Smoke Exposure: No Current occupational status: employed Cognitive needs: No Hearing needs: No Vision needs: No Behavioral Health Assessment Weight Management Therapy Therapy Notes Details Pt is a 32 years old male, who presents for behavioral health assessment as part of surgical weight-loss program. PT was in the program last year but had to stop due to life challenges. PT states he has a history of depression and been in counseling before, however denied past hospitalization/crisis for behavioral health. Also, denies any past and/or current safety concerns around SI and/or self-other harm. PT smokes cigarettes and use alcohol on weekends, which he's aware of need to stop any substance use pre and post surgery. PT also reported concerns in emotional eating and scores from BES indicate high risk for binge eating, he also had high scores in PHQ-9. Pt is not cleared today and will need to follow up in about a month. Presenting Concerns Referral Source WMP Provider. Reason for referral Weight loss surgery evaluation Precipitating Event Obesity, sleep apnea and high blood pressure. Living Situation Current Living Situation Rent At risk of losing current housing? No Satisfied with current living situation? Yes Comments Pt lives with his fiangelo and his 3 year old daughter. 11 year old step-son lives communications department chairperson with them. Food/Weight/Diet Expectations of change Achieve a healthy weight. History/Relationship with food PT reports at times when stressed he either overeats or had no appetite. Before starting the program he usually skipped meals (breakfast/lunch), then had a big dinner. I am a foodie, I love food. PT stated that he has never been a snacker. He would eat pork, rice, and beans growing up, everything was fried he reported. Pt stated that he eats, pork, rice, pasta, larger portions, some periods of frequent take out food, bagels, pizza. Pt also would skips meals during the day and then would eat most of his calories at the end of the day. History/Relationship with weight When started high school he was already over 200Lbs. Then has slowly gained more weight thought the years. In 2014 he was able to get down to 180Lbs. History/Relationship with dieting Self diets, Nutrisystem, meal service, potion control, weight watchers, noon, did WMP in 2021. Pt also started WMP at [facility] couple months ago (november 2022). Binge Eating Do you frequently eat large amounts of food in short periods of time, not feeling physically hungry? Yes Do you feel out of control when you eat a large amount of food in a short period of time? No Do you eat large amounts of food rapidly and typically alone? Yes Night Eating Do you wake up at least once during the night to eat? No If you wake up in the night, do you find that it is necessary to eat something in order to fall back asleep? No Do you have little or no appetite in the morning and feel very hungry in the evening, often overeating between dinner and when you go to bed? Yes Social History Family history and relationship Pt lives with his priya? and their 3 year old daughter. Pt is one of 5 siblings. He was born in [place], [place] and raised in [place] by his mother who was a single mother. 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 Community support Medical providers. [employer] Cultural/Ethnic information Legal Involvement and History Current or historical involvement with the legal system? none Education Highest grade completed Associate's Degree in social work. Preferred learning style Auditory, Verbal, Written, Learn by doing and Visual Currently enrolled in educational program? Yes (Finishing his bachelors degree.) Interested in further educational program? Yes Educational Interests/Skills PT wants to finish a masters in Social Work, specialize in clinical social work. 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 No Meaningful activities family activities. Financial Situation Describe current financial situation Comfortable Financial assistance? None Service Service? No Mental Health and Addiction Treatment Current/Past substance abuse? Yes Comments -PT reports he mostly drinks on the week ends, usually 3-4 drinks on Fridays and Saturdays. When started the program was drinking more. -Going trough a small cessation to be ab le to get surgery. Smokes 2 cigarettes at day. Current/Past addictive behavior concerns? No Psychiatric history PT reports a history of Depression. Was in counseling over 10 years ago. He stop going as he was feeling good. He doesn't take any medication for depression. PT denies any past hopsitalization, crisis or SI/Se;f-harm. Pain Screening Current pain? Yes Pain in the last few months? Yes Comments Generalized body pain (knees, arms). Diagnosed in the past with arthritis then Dx changed to generalized chronic pain. Medications Is the patient compliant with medications? Yes Does the patient have Crooks Guardian in place? Not applicable Does the patient use complimentary health approaches? No Trauma/Abuse History History of trauma? No Questionnaires PHQ-9 Over the last 2 weeks, how often have you been bothered by any of the following problems? 1. Little interest or pleasure in doing things: more than half the days 2. Feeling down, depressed, or hopeless: more than half the days 3. Trouble falling or staying asleep, or sleeping too much: nearly every day 4. Feeling tired or having little energy: nearly every day 5. Poor appetite or overeating: not at all 6. Feeling bad about yourself - or that you are a failure or have let yourself or your family down: several days 7. Trouble concentrating on things, such as reading the newspaper or watching television: not at all 8. Moving or speaking so slowly that other people could have noticed. Or the opposite - being so fidgety or restless that you have been moving around a lot more than usual: several days 9. Thoughts that you would be better off or of hurting yourself in some way: not at all Total score: 12 Source: Developed by Drs. Darian Khan, Mita Proctor, Vinh Richmond and colleagues, with an educational marge from [employer]. Binge Eating Scale Group 1 A. I don't feel self-conscious about my wt. or body size when I'm with others. B. I feel concerned about how I look to others, but it normally does not make me fell disappointed with myself C. I do get self-conscious about my appearance and wt. which makes me feel disappointed in myself. D. I feel very self-conscious about my wt. and frequently I feel intense shame and disgust for myself. I try to avoid social contacts because of my self- consciousness. Response Group 1: D Group 2 A. I don't have any difficulty eating slowly in the proper manner. B. Although I seem to gobble down foods, I don't end up feeling stuffed because of eating to much. C. At times, I tend to eat quickly and then, I feel uncomfortably full afterwards. D. I have the habit of bolting down my food, without really chewing it. When this happens I usually feel uncomfortably stuffed because I've eaten to much. Response Group 2: C Group 3 A. I feel capable to control my eating urges when I want to. B. I feel like I have failed to control my eating more than the average person. C. I feel utterly helpless when it comes to feeling in control of my eating urges. D. Because I feel so helpless about controlling my eating I have become very desperate about trying to get control. Response Group 3: D Group 4 A. I don't have the habit of eating when I'm bored. B. I sometimes eat when I'm bored, but often I'm able to get busy and get my mind off food. C. I have a regular habit of eating when I'm bored, but occasionally, I can use some other activity to get my mind off eating. D. I have a strong habit of eating when I'm bored. Nothing seems to help me breath the habit. Response Group 4: D Group 5 A. I'm usually physically hungry when I eat something. B. Occasionally, I eat something on impulse even though I really am not hungry. C. I have the regular habit of eating foods, that I might not really enjoy, to satisfy a hungry feeling even though physically, I don't need the food. D. Although I'm not physically hungry, I get a hungry feeling in my mouth that only seems to be satisfied when I eat a food, like sandwich, that fills my mouth. Sometimes, when I eat the food to satisfy my mouth hunger, I then spit the food out so I won't gain weight. Response Group 5: B Group 6 A. I don't feel any guilt or self-hate after I overeat. B. After I overeat, occasionally I feel guilt or self-hate. C. Almost all the time I experience strong guilt or self-hate after I overeat. Response Group 6: B Group 7 A. I don't lose total control of my eating when dieting even after periods when I overeat. B. Sometimes when I eat a forbidden food on a diet, I feel like I blew it and eat even more. C. Frequently, I have the habit of saying to myself, I've blown it now, why not go all the way, when I overeat on a diet. When that happens I eat more. D. I have a regular habit of starting a strict diets for myself but I break the diets by going on an eating binge. My life seems to be either a feast or famine. Response Group 7: C Group 8 A. I rarely eat so much food that I feel uncomfortably stuffed afterwards. B. Usually about once a month, I each such a quantity of food, I end up feeling very stuffed. C. I have regular periods during the month when I eat large amounts of food, either at mealtime or at snacks. D. I eat so much food that I regularly feel quite uncomfortable after eating and sometimes a bit nauseous. Response Group 8: C Group 9 A. My level of calorie intake does not go up very high or go down very low on a regular basis. B. Sometimes after I overeat, I will try to reduce my caloric intake to almost nothing to compensate for the excess calories I've eaten. C. I have a regular habit of overeating during the night. It seems that my routine is not to be hungry in the morning but overeat in the evening. D. In my adult years, I have had week-long periods where I practically starve myself. This follows periods when I overeat. It seems I live a life of either feast or famine. Response Group 9: B Group 10 A. I usually am able to stop eating when I want to. I know when enough is enough. B. Every so often, I experience a compulsion to eat which I can't seem to control. C. Frequently, I experience strong urges to eat which I seem unable to control, but at other times I can control my eating urges. D. I feel incapable of controlling urges to eat. I have a fear of not being able to stop eating voluntarily. Response Group 10: C Group 11 A. I don't have any problem stopping eating when I feel full. B. I usually can stop eating when I feel full but occasionally overeat leaving me feeling uncomfortably stuffed. C. I have a problem stopping eating once I start and usually I feel uncomforta sarthak stuffed after I eat a meal. D. Because I have a problem not being able to stop eating when I want, I sometimes have to induce vomiting to relieve my stuffed feeling. Response Group 11: B Group 12 A. I seem to eat just as much when I'm with others, Family social gatherings as when I'm by myself. B. Sometimes, when I'm with other persons, I don't eat as much as I want to eat because I'm self-conscious about my eating. C. Frequently, I eat only a small amount of food when others are present, because I'm very embarrassed about my eating. D. I feel so ashamed about overeating that I pick times to overeat when I know no one will see me. I feel like a closet eater. Response Group 12: B Group 13 A. I eat three meals a day with only an occasional between meal snack. B. I eat 3 meals a day, but I also normally snack between meals. C. When I am snacking heavily, I get in the habit of skipping regular meals. D. There are regular periods when I seem to be continually eating, with no planned meals. Response Group 13: C Group 14 A. I don't think much about trying to control unwanted eating urges. B. At least some of the time, I feel my thoughts are pre-occupied with trying to control my eating urges. C. I feel that frequently I spend much time thinking about how much I ate or about trying not to eat anymore. D. It seems to me that most of my waking hours are pre-occupied by thoughts about eating or not eating. I feel like I'm constantly struggling not to eat. Response Group 14: C Group 15 A. I don't think about food a great deal. B. I have strong craving for food but they last only for brief periods of time. C. I have days when I can't seem to think about anything else but food. D. Most of my days seem to be pre-occupied with thoughts about food. I feel like I live to eat. Response Group 15: B Group 16 A. I usually know whether or not I'm physically hungry. I take the right portion of food to satisfy me. B. Occasionally, I feel uncertain about knowing whether or not I'm physically hungry. A these times it's hard to know how much food I should take to satisfy me. C. Even though I might know how many calories I should eat, I don't have any idea what is a normal amount of food for me. Response Group 16: B Binge Eating Score: 28 Score less than 17 Minimal Risk Score between 18-26 Moderate Risk Score between 27-46 High Risk Assessment & Plan Assessment & Plan (1) Tobacco abuse: Code(s): Z72.0 - Tobacco use (2) Adjustment disorder, unspecified: Code(s): F43.20 - Adjustment disorder, unspecified Qualifiers: Adjustment disorder type: unspecified type Qualified Code(s): F43.20 - Adjustment disorder, unspecified (3) Obesity: Code(s): E66.9 - Obesity, unspecified Plan PT not cleared today. Will need to repeat BES and PHQ-9 due to high scores. F/up in about 1 month. Telehealth Telehealth Location of provider rendering services: other Location of patient: other (Pt was at work in [place], [place].) Patient Identification confirmed using: Name, : Yes Telehealth method: voice only Patient verbally consented to treatment: Yes Patient verbally consented to billing insurance company: Yes Patient informed of any privacy concerns related to visit: Yes Minutes spent on Phone/Video with Pt.: 45 Coding Level of Care Code New Pt Tele Psy Diag Eval (56144) Patient Type New Diagnoses Tobacco abuse Z72.0 Adjustment disorder, unspecified type F43.20 Adjustment disorder type: unspecified type Obesity E66.9 Time Spent (min) 45
== END 2023-03-18 14:00 | disposition home or self-care (01) ==
LOC: HO.HBST 13:31
PROVIDERS: PCP Internal Medicine; Visit Provider Counselor Mental Health
DX: F43.20 Adjustment disorder, unspecified (principal); Z72.0 Tobacco use; E66.9 Obesity, unspecified
CPT/HCPCS: 90791

== ENCOUNTER → 2023-03-18 13:00 | Outpatient (BNVA) | payer OTHER, SELFPAY | PROVIDERS: PCP Internal Medicine; Visit Provider Counselor Mental Health ==

== ENCOUNTER 2023-03-31 07:57 | Outpatient (REF) | payer OTHER, SELFPAY ==
--- NOTE | ~2023-03-31 | US_ITS ---
EXAMINATION: US COMPLETE ABDOMEN WITH LIVER ELASTOGRAPHY CLINICAL INFORMATION: Obesity COMPARISON: Previous exam September 2020 TECHNIQUE: Real-time imaging of the abdominal viscera. Noninvasive ultrasound liver fibrosis assessment is performed using Brodie ElastPQ point quantification shear wave elastography (2D-SWE) with a C5-2 MHz transducer. Multiple elastography samples are obtained. FINDINGS: PANCREAS: Not well visualized overlying bowel gas. ABDOMINAL AORTA: The proximal and distal aortic segments are normal in caliber. The mid abdominal aorta is not well visualized due to bowel INFERIOR VENA CAVA: Visualized portions are normal. LIVER: Liver echotexture is slightly increased. The liver is normal in size and contour.. No focal lesion or intrahepatic biliary duct dilatation. The right lobe measures 14.6 cm in length. The left lobe measures 10.3 cm in length. Portal flow is normal/hepatopedal Shear wave liver elastography median stiffness is 1.46 m/s (reference: normal median stiffness is 1.3 m/s or less). This is increased from 1.37 on September 2020 exam. IQR/median stiffness to assess sampling precision is 0.21 (reference: good quality data set is IQR/median stiffness of 0.15 or less). GALLBLADDER: Normal. The gallbladder is physiologically distended without evidence of stones, sludge, polyps, wall thickening or pericholecystic fluid. COMMON BILE DUCT: Normal in caliber measuring 0.3 cm in diameter. RIGHT KIDNEY: Normal. No hydronephrosis. No renal calculi or focal parenchymal lesions. The kidney measures 12 cm in maximum dimension. LEFT KIDNEY: Normal. No hydronephrosis. No renal calculi or focal parenchymal lesions. The kidney measures 12 cm in maximum dimension. SPLEEN: Normal. The spleen measures 12.7 cm in maximum dimension. FREE FLUID: None. US/US abdomen comp w elastography IMPRESSION: 1. Impression: Slightly echogenic liver probably representing fatty infiltration. Limited visualization of the pancreas and abdominal aorta. 2. Liver elastography: Limited due to sampling error. Slightly elevated liver stiffness slightly increased from September 2020 exam. REFERENCE: Society of Radiologists in Ultrasound Liver Stiffness Thresholds (2020): LIVER STIFFNESS THRESHOLDS: *Liver Stiffness equal or less than 1.3 m/s: High probability of being normal. *Liver Stiffness less than 1.7 m/s: In the absence of other known clinical signs, rules out compensated advanced chronic liver disease. *Liver Stiffness 1.7-2.1 m/s: Suggestive of compensated advanced chronic liver disease but need further test for confirmation. *Liver Stiffness over 2.1 m/s: Rules in compensated advanced chronic liver disease. *Liver Stiffness over 2.4 m/s: Suggestive of clinically significant portal hypertension. QUALITY OF DATA SET: *IQR/Median value equal or less than 0.15 implies a quality data set. *IQR/Median value over 0.15 implies a poor quality data set. SIGNIFICANT CHANGE FROM PRIOR EXAM: Significant change if liver stiffness measurement is 10% or greater from prior exam. OTHER CONSIDERATIONS: The stage of liver fibrosis may be overestimated in the setting of acute hepatitis, liver inflammation, elevated liver function tests, hepatic vascular congestion, obstructive cholestasis, non-fasting state, and infiltrative diseases such as amyloidosis and lymphoma. In some patients with NAFLD, the liver stiffness thresholds for compensated advanced chronic liver disease may be lower. In causes other than viral hepatitis and NAFLD, liver stiffness thresholds are not well established.
--- NOTE | ~2023-03-31 | FL_ITS ---
EXAMINATION: XR FLUOROSCOPY UPPER GI WITH AIR CLINICAL INFORMATION: Preop bariatric. Patient has mild GERD. COMPARISON: 10/01/2020 TECHNIQUE: Fluoroscopic air contrast upper GI examination was performed utilizing standard techniques with thin and thick barium and effervescent granules. Numerous spot images were obtained. FINDINGS: No gross hypopharyngeal abnormality. No tracheal penetration or aspiration seen. Dual and single contrast images of the esophagus demonstrate normal caliber, contour, and mucosal pattern. No evidence of stricture, mass, or ulcerations identified. Esophageal peristalsis was normal. There is a questionable tiny type I hiatus hernia present. Mild gastroesophageal reflux was noted during the course of the examination, to the level of the aortic arch. Dual contrast and single contrast images of the stomach demonstrated normal contour and mucosal pattern without evidence of mass, ulceration, or other abnormality. Contrast freely passed into the gastric antrum and duodenal bulb without delay. Single and air-contrast images of the duodenal bulb demonstrate no abnormality. The duodenal sweep has a normal appearance, course, and mucosal fold appearance. The imaged jejunum and proximal ileum have a normal fold pattern and caliber. Mildly rapid transit of contrast noted into the mid and distal small bowel by the end of the examination. This is of uncertain etiology or significance. FLUOROSCOPY TIME: 3 minutes 15 seconds Number of Spot Images: 18 exposures DOSE AREA PRODUCT: [id number] uGy-m2 (microgray-meter squared) FL/FL upper GI w air IMPRESSION: 1. Questionable tiny type I hiatus hernia. Otherwise normal esophagus, stomach, duodenal bulb, and sweep. 2. Mild gastroesophageal reflux noted to the level of the aortic arch. 3. Somewhat fast transit of contrast through the small bowel to the mid ileal level. This is of uncertain significance or etiology. The imaged small bowel has normal fold pattern and caliber.
--- NOTE | ~2023-03-31 | XR_ITS ---
EXAMINATION: XR CHEST CLINICAL INFORMATION: Body mass index elevated COMPARISON: 09/25/2020 TECHNIQUE: 2 views of the chest were obtained. FINDINGS: There is no gross pneumothorax. Heart size is normal. No pleural effusion. No focal consolidation to suggest pneumonia. XR/XR chest 2V IMPRESSION: No evidence of pneumonia.
--- NOTE | 2023-03-31 09:35 | ECG_ITS ---
Test Reason : high bmi Blood Pressure : / mmHG Vent. Rate : 074 BPM Atrial Rate : 074 BPM P-R Int : 126 ms QRS Dur : 096 ms QT Int : 388 ms P-R-T Axes : 064 055 036 degrees QTc Int : 430 ms Normal sinus rhythm Normal ECG When compared with ECG of 12-MAR-2022 12:11, No significant change was found Referred By: Matty Marquez Electronically Signed By:ALEJANDRA SEVILLA
== END 2023-03-31 07:58 | disposition home or self-care (01) ==
LOC: HO.US 07:57
PROVIDERS: PCP Internal Medicine; Visit Provider Surgery
DX: Z01.818 Encounter for other preprocedural examination (principal); E66.9 Obesity, unspecified; Z68.35 Body mass index [BMI] 35.0-35.9, adult; K21.9 Gastro-esophageal reflux disease without esophagitis; I10 Essential (primary) hypertension; A04.8 Other specified bacterial intestinal infections; E55.9 Vitamin D deficiency, unspecified; J45.909 Unspecified asthma, uncomplicated; G47.33 Obstructive sleep apnea (adult) (pediatric); Z72.0 Tobacco use
CPT/HCPCS: 71046; 74246; 76705; 76981; 93005

== ENCOUNTER → 2023-03-31 08:00 | Outpatient (BNV) | payer OTHER, SELFPAY | PROVIDERS: PCP Internal Medicine; Visit Provider Radiology Diagnostic Radiology | DX: K21.9 Gastro-esophageal reflux disease without esophagitis (principal) | CPT/HCPCS: 74246 ==

== ENCOUNTER 2023-04-06 11:00 | Outpatient (REF) | payer OTHER, SELFPAY ==
[2023-04-12 00:23] LABS: Cotinine, U <2 ng/mL; Nicotine, U <2 ng/mL
== END 2023-04-06 11:01 | disposition home or self-care (01) ==
LOC: HO.LAB 11:00
PROVIDERS: Absent Provider Surgery; PCP Internal Medicine; Visit Provider Counselor Mental Health
DX: E66.9 Obesity, unspecified (principal); Z68.35 Body mass index [BMI] 35.0-35.9, adult; E55.9 Vitamin D deficiency, unspecified; G47.33 Obstructive sleep apnea (adult) (pediatric); I10 Essential (primary) hypertension; E51.9 Thiamine deficiency, unspecified; Z72.0 Tobacco use; K21.9 Gastro-esophageal reflux disease without esophagitis
CPT/HCPCS: 80323; 99212

== ENCOUNTER 2023-04-06 11:00 | Outpatient (AMB) | payer OTHER, SELFPAY ==
--- NOTE | 2023-04-06 11:13 | MHC.WMTHER ---
Intake Intake Visit Reasons: VIDEO BH F/U Allergies fluoxetine [Prozac] Allergy (Unknown, Verified 03/02/23 14:18) Unknown Wellbutrin Allergy (Unknown, Uncoded 03/02/23 14:18) Unknown [facility] Medical History Asthma Back pain GERD (gastroesophageal reflux disease) Hypertension Surgical History No pertinent past surgical history Family History Father Myocardial infarction Mother HTN (hypertension) Diabetes Maternal Grandmother Stomach cancer Maternal Grandfather Prostate cancer Maternal Aunt Metastasis to breast Maternal Aunt Breast cancer Brother No problems noted. Brother No problems noted. Brother No problems noted. Brother No problems noted. Sister No problems noted. Daughter No problems noted. Social History Household Members: Family Housing: Apartment Alcohol intake: current Alcohol intake frequency: a few times a week Patient Tobacco Use Status: Current everyday Tobacco user Tobacco use type: Cigarette Cigarettes Per Day: 5 e-Cigarette/Vaping Use: Never Used Second Hand Smoke Exposure: No Current occupational status: employed Cognitive needs: No Hearing needs: No Vision needs: No Behavioral Health Assessment Weight Management Therapy Therapy Notes Details PT presents for a f/up after intake on 03/18. Today we repeated BES and PHQ-9. We also discussed behavioral changes patient have done and reflected on his commitment with surgical weight-loss program. PT states he's measuring portions as indicated, feeling canales than before after meals and not eating more after is done with a shake/meal as he feels satisfied. He's practicing mindful eating and engaging in other activities such as cleaning when have cravings or thooughts arounf food. He also quit cigarettes 2 weeks ago as he got sick. On the other hand, today's cores from BES suggest low risk for binge eating behavior and PHQ- scores also showed no active symptoms/concerns with depression. Mental status exam is withing normal limits, suggesting person's functioning is not impaired, thus the patient is cleared from the behavioral health standpoint. Presenting Concerns Referral Source WMP Provider. Reason for referral Weight loss surgery evaluation Precipitating Event Obesity, sleep apnea and high blood pressure. Living Situation Current Living Situation Rent At risk of losing current housing? No Satisfied with current living situation? Yes Comments Pt lives with his fiance and his 3 year old daughter. 11 year old step-son lives parts designer with them. Food/Weight/Diet Expectations of change Achieve a healthy weight. History/Relationship with food PT reports at times when stressed he either overeats or had no appetite. Before starting the program he usually skipped meals (breakfast/lunch), then had a big dinner. I am a foodie, I love food. PT stated that he has never been a snacker. He would eat pork, rice, and beans growing up, everything was fried he reported. Pt stated that he eats, pork, rice, pasta, larger portions, some periods of frequent take out food, bagels, pizza. Pt also would skips meals during the day and then would eat most of his calories at the end of the day. History/Relationship with weight When started high school he was already over 200Lbs. Then has slowly gained more weight thought the years. In 2014 he was able to get down to 180Lbs. History/Relationship with dieting Self diets, Nutrisystem, meal service, potion control, weight watchers, noon, did WMP in 2021. Pt also started WMP at [facility] couple months ago (november 2022). Binge Eating Do you frequently eat large amounts of food in short periods of time, not feeling physically hungry? Yes Do you feel out of control when you eat a large amount of food in a short period of time? No Do you eat large amounts of food rapidly and typically alone? Yes Night Eating Do you wake up at least once during the night to eat? No If you wake up in the night, do you find that it is necessary to eat something in order to fall back asleep? No Do you have little or no appetite in the morning and feel very hungry in the evening, often overeating between dinner and when you go to bed? Yes Social History Family history and relationship Pt lives with his priya? and their 3 year old daughter. Pt is one of 5 siblings. He was born in [place], [place] and raised in [place] by his mother who was a single mother. Parental/Familial vamp stitcher obligations children Developmental history and status no issues Social support Fianc?. Community support Medical providers. Orthodox/Spirituality Druze Cultural/Ethnic information Legal Involvement and History Current or historical involvement with the legal system? none Education Highest grade completed Associate's Degree in social work. Preferred learning style Auditory, Verbal, Written, Learn by doing and Visual Currently enrolled in educational program? Yes (Finishing his bachelors degree.) Interested in further educational program? Yes Educational Interests/Skills PT wants to finish a masters in Social Work, specialize in clinical social work. 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 No Meaningful activities family activities. Financial Situation Describe current financial situation Comfortable Financial assistance? None Service Service? No Mental Health and Addiction Treatment Current/Past substance abuse? Yes Comments -PT reports he mostly drinks on the weekends, usually 3-4 drinks on Fridays and Saturdays. When started the program was drinking more. -quit smocking 2 weeks ago. Current/Past addictive behavior concerns? No Psychiatric history PT reports a history of Depression. Was in counseling over 10 years ago. He stop going as he was feeling good. He doesn't take any medication for depression. PT denies any past hopsitalization, crisis or SI/Se;f-harm. Pain Screening Current pain? Yes Pain in the last few months? Yes Comments Generalized body pain (knees, arms). Diagnosed in the past with arthritis then Dx changed to generalized chronic pain. Medications Is the patient compliant with medications? Yes Does the patient have Crooks Guardian in place? Not applicable Does the patient use complimentary health approaches? No Trauma/Abuse History History of trauma? No Questionnaires PHQ-9 Over the last 2 weeks, how often have you been bothered by any of the following problems? 1. Little interest or pleasure in doing things: not at all 2. Feeling down, depressed, or hopeless: not at all 3. Trouble falling or staying asleep, or sleeping too much: not at all 4. Feeling tired or having little energy: not at all 5. Poor appetite or overeating: not at all 6. Feeling bad about yourself - or that you are a failure or have let yourself or your family down: not at all 7. Trouble concentrating on things, such as reading the newspaper or watching television: not at all 8. Moving or speaking so slowly that other people could have noticed. Or the opposite - being so fidgety or restless that you have been moving around a lot more than usual: not at all 9. Thoughts that you would be better off or of hurting yourself in some way: not at all Total score: 0 Depression Screening Interpretation: Negative 38422 - PHQ-9 Billing: Yes Source: Developed by Drs. Darian Khan, Mita Proctor, Vinh Richmond and colleagues, with an educational marge from [employer]. Binge Eating Scale Group 1 A. I don't feel self-conscious about my wt. or body size when I'm with others. B. I feel concerned about how I look to others, but it normally does not make me fell disappointed with myself C. I do get self-conscious about my appearance and wt. which makes me feel disappointed in myself. D. I feel very self-conscious about my wt. and frequently I feel intense shame and disgust for myself. I try to avoid social contacts because of my self-consciousness. Response Group 1: D Group 2 A. I don't have any difficulty eating slowly in the proper manner. B. Although I seem to gobble down foods, I don't end up feeling stuffed because of eating to much. C. At times, I tend to eat quickly and then, I feel uncomfortably full afterwards. D. I have the habit of bolting down my food, without really chewing it. When this happens I usually feel uncomfortably stuffed because I've eaten to much. Response Group 2: B (Was a C before. ) Group 3 A. I feel capable to control my eating urges when I want to. B. I feel like I have failed to control my eating more than the average person. C. I feel utterly helpless when it comes to feeling in control of my eating urges. D. Because I feel so helpless about controlling my eating I have become very desperate about trying to get control. Response Group 3: B (Before was a D.) Group 4 A. I don't have the habit of eating when I'm bored. B. I sometimes eat when I'm bored, but often I'm able to get busy and get my mind off food. C. I have a regular habit of eating when I'm bored, but occasionally, I can use some other activity to get my mind off eating. D. I have a strong habit of eating when I'm bored. Nothing seems to help me breath the habit. Response Group 4: B (Before was a D. Finding himself doing other activities when dealing with this thoughts. ) Group 5 A. I'm usually physically hungry when I eat something. B. Occasionally, I eat something on impulse even though I really am not hungry. C. I have the regular habit of eating foods, that I might not really enjoy, to satisfy a hungry feeling even though physically, I don't need the food. D. Although I'm not physically hungry, I get a hungry feeling in my mouth that only seems to be satisfied when I eat a food, like sandwich, that fills my mouth. Sometimes, when I eat the food to satisfy my mouth hunger, I then spit the food out so I won't gain weight. Response Group 5: B Group 6 A. I don't feel any guilt or self-hate after I overeat. B. After I overeat, occasionally I feel guilt or self-hate. C. Almost all the time I experience strong guilt or self-hate after I overeat. Response Group 6: A Group 7 A. I don't lose total control of my eating when dieting even after periods when I overeat. B. Sometimes when I eat a forbidden food on a diet, I feel like I blew it and eat even more. C. Frequently, I have the habit of saying to myself, I've blown it now, why not go all the way, when I overeat on a diet. When that happens I eat more. D. I have a regular habit of starting a strict diets for myself but I break the diets by going on an eating binge. My life seems to be either a feast or famine. Response Group 7: C (Hasn't loss control this time.) Group 8 A. I rarely eat so much food that I feel uncomfortably stuffed afterwards. B. Usually about once a month, I each such a quantity of food, I end up feeling very stuffed. C. I have regular periods during the month when I eat large amounts of food, either at mealtime or at snacks. D. I eat so much food that I regularly feel quite uncomfortable after eating and sometimes a bit nauseous. Response Group 8: C Group 9 A. My level of calorie intake does not go up very high or go down very low on a regular basis. B. Sometimes after I overeat, I will try to reduce my caloric intake to almost nothing to compensate for the excess calories I've eaten. C. I have a regular habit of overeating during the night. It seems that my routine is not to be hungry in the morning but overeat in the evening. D. In my adult years, I have had week-long periods where I practically starve myself. This follows periods when I overeat. It seems I live a life of either feast or famine. Response Group 9: A Group 10 A. I usually am able to stop eating when I want to. I know when enough is enough. B. Every so often, I experience a compulsion to eat which I can't seem to control. C. Frequently, I experience strong urges to eat which I seem unable to control, but at other times I can control my eating urges. D. I feel incapable of controlling urges to eat. I have a fear of not being able to stop eating voluntarily. Response Group 10: A (Before was C.) Group 11 A. I don't have any problem stopping eating when I feel full. B. I usually can stop eating when I feel full but occasionally overeat leaving me feeling uncomfortably stuffed. C. I have a problem stopping eating once I start and usually I feel uncomfortably stuffed after I eat a meal. D. Because I have a problem not being able to stop eating when I want, I sometimes have to induce vomiting to relieve my stuffed feeling. Response Group 11: A Group 12 A. I seem to eat just as much when I'm with others, Family social gatherings as when I'm by myself. B. Sometimes, when I'm with other persons, I don't eat as much as I want to eat because I'm self-conscious about my eating. C. Frequently, I eat only a small amount of food when others are present, because I'm very embarrassed about my eating. D. I feel so ashamed about overeating that I pick times to overeat when I know no one will see me. I feel like a closet eater. Response Group 12: B Group 13 A. I eat three meals a day with only an occasional between meal snack. B. I eat 3 meals a day, but I also normally snack between meals. C. When I am snacking heavily, I get in the habit of skipping regular meals. D. There are regular periods when I seem to be continually eating, with no planned meals. Response Group 13: A (Before C. Following meal plan.) Group 14 A. I don't think much about trying to control unwanted eating urges. B. At least some of the time, I feel my thoughts are pre-occupied with trying to control my eating urges. C. I feel that frequently I spend much time thinking about how much I ate or about trying not to eat anymore. D. It seems to me that most of my waking hours are pre-occupied by thoughts about eating or not eating. I feel like I'm constantly struggling not to eat. Response Group 14: A (Before was C) Group 15 A. I don't think about food a great deal. B. I have strong craving for food but they last only for brief periods of time. C. I have days when I can't seem to think about anything else but food. D. Most of my days seem to be pre-occupied with thoughts about food. I feel like I live to eat. Response Group 15: B Group 16 A. I usually know whether or not I'm physically hungry. I take the right portion of food to satisfy me. B. Occasionally, I feel uncertain about knowing whether or not I'm physically hungry. A these times it's hard to know how much food I should take to satisfy me. C. Even though I might know how many calories I should eat, I don't have any idea what is a normal amount of food for me. Response Group 16: B Binge Eating Score: 14 Score less than 17 Minimal Risk Score between 18-26 Moderate Risk Score between 27-46 High Risk Assessment & Plan Assessment & Plan (1) Tobacco abuse: Code(s): Z72.0 - Tobacco use (2) Adjustment disorder, unspecified: Code(s): F43.20 - Adjustment disorder, unspecified Qualifiers: Adjustment disorder type: unspecified type Qualified Code(s): F43.20 - Adjustment disorder, unspecified (3) Obesity: Code(s): E66.9 - Obesity, unspecified Plan After re-assessing eating behavior and administering the BES and PHQ-9, scores and patient statements reflects a positive change with eating behavior, mindset and progress towards habit building to reach weight-loss goals. PT is cleared from the behavioral health standpoint and there is no need for f/up, however hes aware of available resources if in need for additional support. Telehealth Telehealth Location of provider rendering services: other (Home office. [place], [place]) Location of patient: address on file Telehealth method: video Patient verbally consented to treatment: Yes Patient verbally consented to billing insurance company: Yes Patient informed of any privacy concerns related to visit: Yes Minutes spent on Phone/Video with Pt.: 60 Coding Level of Care Code Established Pt Tele Psytx >53 mins (85035) Patient Type Established Diagnoses Tobacco abuse Z72.0 Adjustment disorder, unspecified type F43.20 Adjustment disorder type: unspecified type Obesity E66.9 Time Spent (min) 60 Comment
== END 2023-04-06 11:54 | disposition home or self-care (01) ==
LOC: HO.HBST 11:27
PROVIDERS: PCP Internal Medicine; Visit Provider Counselor Mental Health
DX: F43.20 Adjustment disorder, unspecified (principal); Z72.0 Tobacco use; E66.9 Obesity, unspecified
CPT/HCPCS: 90837

== ENCOUNTER 2023-04-06 14:58 | Outpatient (AMB) | payer OTHER, SELFPAY ==
--- NOTE | 2023-04-06 15:10 | MHC.OFFVISWM ---
Intake VS Expanded 04/06/23 15:22 Height 5 ft 11 in Weight 240 lb 6.4 oz BMI 33.5 BP 143/92 H Blood Pressure Location Rt brachial Blood Pressure Position Sitting Pulse 79 Pulse Source Pulse Oximeter Temp 97.5 F Temperature Source Tympanic Pulse Oximetry 97 Oxygen Delivery Method Room Air Body Fat 76.8 Body Fat Percentage 31.9 Free Fat Mass 163.6 Muscle Mass 155.4 Visceral Mass 13.0 Water Mass 115.4 BMR 2,251 Intake Visit Reasons: (OV) F/U SWL Allergies fluoxetine [Prozac] Allergy (Unknown, Verified 04/06/23 15:12) Unknown Wellbutrin Allergy (Unknown, Uncoded 04/06/23 15:12) Unknown HPI HPI Comments History of Present Illness Details The patient is a 32-year-old gentleman with a history of obstructive sleep apnea on CPAP, hypertension, asthma, GERD was a cigarette smoker. He is interested in laparoscopic sleeve gastrectomy because of numerous attempts of medical weight loss with resultant weight regain. He recently experienced an upper respiratory tract infection that required a Z-Ismael, steroids, inhalers and he is on the mend, but he has not been exercising for the past 2 weeks. He has still lost 4 lb since his last visit. He quit smoking 2 weeks ago. Patient enrolled in the surgical weight loss program here at [facility] 09/06/20, was noted to be H pylori positive but negative on the retest and dropped out somewhere between December 25, 2020 and 03/07/2022. He reestablished entry into the surgical weight loss program 03/07/2022 and dropped out again. Per PCP notes from 12/18/22, the patient enrolled in [facility] program Nov, 2022 and reports that due to a recurring issue with appointments being canceled and rescheduled, he decided to return here. The patient presents today with a weight of 240.4, which is down 4lbs from his last visit, which was his heaviest adult weight of 258 lb/BMI 36.0. His surgical goal weight is 232 lb after 25 lb of weight loss/10% of his entry weight. We also reviewed the importance of nicotine cessation which will include not using nicotine gum, nicotine lozenges or nicotine patches since they cause gastric acid production which can cause surgical complications. He met with Luciana Thompson and is following her recommendations regarding diet without any issues. He does note some bowel irregularity which we discussed and ongoing GERD which will be managed with Protonix. The patient notes that his cigarette smoking has decreased to 5-6 cigarettes a day. He is still experiencing GERD in spite of his 9 lb weight loss and was unable to obtain his Protonix due to insurance changes; he requested that I resubmitted Protonix to [facility] on [address] in [place] at his last visit. He reports his GERD has resolved at this point & he's tolerating Protonix without issue. He notes that he lives with his luis, who has quit smoking & entered our SWL program and his [id number] who is a smoker who is also obese. Meal plan: Patient awakens 07:30am patient goes to bed at midnight to 00:30am He is having a Premier protein premade shake with 30 g of protein Lunch is usually around noon to 01:00 o'clock and includes 8 oz of cottage cheese Patient's dinner is 6 oz of lean protein with green vegetables, usually bra clear spinach His current snacks include Quest chips. 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 His current exercise regime is treadmill with alternating inclines for 45 minutes 3 days a week The goal to increase to 4 days per week was discussed and the patient will proceed Data from his original entry in 2020: ESS 10 GERD 16 (not satisfied with management) DAVID 2 QOL 103 PFSH Medical History Hypertension Asthma GERD (gastroesophageal reflux disease) Back pain Surgical History No pertinent past surgical history Family History Father Myocardial infarction Mother HTN (hypertension) Diabetes Maternal Grandmother Stomach cancer Maternal Grandfather Prostate cancer Maternal Aunt Metastasis to breast Maternal Aunt Breast cancer Brother No problems noted. Brother No problems noted. Brother No problems noted. Brother No problems noted. Sister No problems noted. Daughter No problems noted. Social History Household Members: Family Housing: Apartment Alcohol intake: current Alcohol intake frequency: a few times a week Patient Tobacco Use Status: Current everyday Tobacco user Tobacco use type: Cigarette Cigarettes Per Day: 5 e-Cigarette/Vaping Use: Never Used Second Hand Smoke Exposure: No Current occupational status: employed Cognitive needs: No Hearing needs: No Vision needs: No Review of Systems Const All systems reviewed & are unremarkable except as noted in HPI and below Reports as per HPI Physical Exam On exam he is anicteric and nontoxic He is in no acute respiratory distress Abdomen is obese and soft with no tenderness No lower extremity edema is present on today's visit Results Reviewed Results Reviewed: Labs 03/12/23 Vit B1 low at <6, Vit D low at 20 CRP elevated at 0.63 HbA1C 4.9 BUN 11, Cr 0.85 H. pylori negative Lipids, LFTs, Iron studies WNL Urine nicotine/contine pending Diagnostic imaging 03/31/23 CXR NAD UGI ? possible HH, +GERD Abd U/S elastography read pending Assessment & Plan Assessment & Plan (1) Obesity: Code(s): E66.9 - Obesity, unspecified (2) GERD (gastroesophageal reflux disease): Code(s): K21.9 - Gastro-esophageal reflux disease without esophagitis (3) Vitamin D deficiency: Code(s): E55.9 - Vitamin D deficiency, unspecified (4) Obstructive sleep apnea: Comment: Mild 2018 Code(s): G47.33 - Obstructive sleep apnea (adult) (pediatric) (5) Asthma: Code(s): J45.909 - Unspecified asthma, uncomplicated (6) Tobacco abuse: Code(s): Z72.0 - Tobacco use (7) Hypertension: Code(s): I10 - Essential (primary) hypertension (8) Vitamin B1 deficiency: Code(s): E51.9 - Thiamine deficiency, unspecified Plan The patient is currently taking 1 in days men's multivitamin to address his B1 and vitamin D deficiency. He started these after the blood tests were done 03/02/2023. I reviewed the fact that is abdominal ultrasound is currently not red but it has been completed. The option of medical weight loss versus surgical weight loss was again reviewed and the patient would like to proceed with a laparoscopic sleeve gastrectomy, possible hiatal hernia repair, intraoperative upper endoscopy and possible ventral hernia repair. The inherent risks of bleeding, infection, weight regain if he returns to maladaptive eating, worsening of his reflux if he gains weight, risk of blood transfusion if significant bleeding occurs and activity restrictions were briefly reviewed today. Will submit to his insurance once his urine nicotine from today returns and see him back for 45 minute visit to review both liver shrinking diet and perioperative. Patient is already obtained celebrate 4 in 1 shakes. His questions seemed to be satisfactorily answered. Orders: Orders Nicotine and Metabolite Ur, Qt Today E51.9 - Thiamine deficiency, unspecified, E55.9 - Vitamin D deficiency, unspecified, E66.9 - Obesity, unspecified, G47.33 - Obstructive sleep apnea (adult) (pediatric), I10 - Essential (primary) hypertension, Z68.35 - Body mass index [BMI] 35.0-35.9, adult, Z72.0 - Tobacco use Coding Level of Care Code Est Pt Level 4 (37335) Diagnoses Obesity E66.9 GERD (gastroesophageal reflux disease) K21.9 Vitamin D deficiency E55.9 Obstructive sleep apnea G47.33 Asthma J45.909 Tobacco abuse Z72.0 Hypertension I10 Vitamin B1 deficiency E51.9
[2023-04-06 15:22] VITALS: BP 143/92; PULSE 79; TEMP 36.4; O2SAT 97; BMI 33.5
== END 2023-04-06 15:42 | disposition home or self-care (01) ==
PROVIDERS: PCP Internal Medicine; Visit Provider Surgery
DX: E66.9 Obesity, unspecified (principal); Z68.33 Body mass index [BMI] 33.0-33.9, adult; E55.9 Vitamin D deficiency, unspecified; G47.33 Obstructive sleep apnea (adult) (pediatric); J45.909 Unspecified asthma, uncomplicated; Z72.0 Tobacco use; I10 Essential (primary) hypertension; E51.9 Thiamine deficiency, unspecified
CPT/HCPCS: 99214

== ENCOUNTER 2023-04-24 08:31 | Outpatient (AMB) | payer OTHER, SELFPAY ==
[2023-04-24 08:34] VITALS: BP 140/98; PULSE 81; O2SAT 98; BMI 34.0
--- NOTE | 2023-04-24 08:34 | A.OFFPC_ITS ---
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 Allergies fluoxetine [Prozac] Allergy (Unknown, Verified 04/24/23 08:34) Unknown hydrochlorothiazide Adverse Reaction (Intermediate, Unverified 04/24/23 09:01) epistaxis Wellbutrin Allergy (Unknown, Uncoded 04/24/23 08:34) Unknown Tobacco use date assessed: 04/24/23 Dental Screening Dental Screen Date: 04/24/23 Did you have a dental visit in the last 12 months?: Yes Did you have a dental problem in the last 6 months where you did not have access to dental care?: No Was dental information given to patient?: Patient has dentist HPI FU after urgent care visit, 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 Last seen in October 2022. Patient has asked for weight management and followed up with them since patient is interested in laparoscopic sleeve gastrectomy with hiatal hernia repair and ventral hernia repair patient was advised to stop smoking. So patient has finally stop smoking 1 month ago but discussed the need to persistently remind self to stop. As for the blood pressure was given hydrochlorothiazide but discontinued question of epistaxis. So presently not on any medication. As for sleep apnea did not use the CPAP due to financial problem. Also complains of right knee pain patient denies any fall or trauma but 1 week ago started having pain and went to the urgent care in [place] x-ray done was told there was mass/and chondroma? Advised patient that we will follow on the x-ray and manage when received. Meanwhile have pain discussed about pain relievers anti-inflammatories Voltaren gel. Patient is awaiting insurance approval for the laparoscopic sleeve gastrectomy noted vitamin B1 deficiency patient was advised to decrease alcohol intake, start on thiamine. [facility] Medical History (Updated 04/24/23 @ 09:09 by Maximino Quarles MD) Hypertension Asthma GERD (gastroesophageal reflux disease) Back pain Surgical History Hx of wisdom tooth extraction Hx of circumcision Family History (Updated 04/24/23 @ 08:35 by Kerry Vivas [facility]) Father Myocardial infarction Mother HTN (hypertension) Diabetes Maternal Grandmother Stomach cancer Maternal Grandfather Prostate cancer Maternal Aunt Metastasis to breast Maternal Aunt Breast cancer Brother No problems noted. Brother No problems noted. Brother No problems noted. Brother No problems noted. Sister No problems noted. Daughter No problems noted. Social History Household Members: Family Housing: Apartment Alcohol intake: current Alcohol intake frequency: a few times a week Patient Tobacco Use Status: Former Tobacco user Tobacco use type: Cigarette Years Smoked: 1 month e-Cigarette/Vaping Use: Never Used Second Hand Smoke Exposure: No Current occupational status: employed Cognitive needs: No Hearing needs: No Vision needs: No Questionnaire PHQ-9 Over the last 2 weeks, how often have you been bothered by any of the following problems? 1. Little interest or pleasure in doing things: not at all 2. Feeling down, depressed, or hopeless: not at all 3. Trouble falling or staying asleep, or sleeping too much: not at all 4. Feeling tired or having little energy: not at all 5. Poor appetite or overeating: not at all 6. Feeling bad about yourself - or that you are a failure or have let yourself or your family down: not at all 7. Trouble concentrating on things, such as reading the newspaper or watching television: not at all 8. Moving or speaking so slowly that other people could have noticed. Or the opposite - being so fidgety or restless that you have been moving around a lot more than usual: not at all 9. Thoughts that you would be better off or of hurting yourself in some way: not at all Total score: 0 Depression Screening Interpretation: Negative Depression Screening Done: Yes 75647 - PHQ-9 Billing: Yes Source: Developed by Drs. Darian Khan, Mita Proctor, Vinh Richmond and colleagues, with an educational marge from [employer]. Thrive Questionnaire Date Thrive assessed: 10/13/22 AUDIT C Alcohol Use Questionnaire (AUDIT-C) 1. How often do you have a drink containing alcohol?: 2-4 times a month 2. How many drinks containing alcohol do you have on a typical day when you are drinking?: 1 or 2 3. How often do you have six or more drinks on one occasion?: Never Total Score: 2 Score Reviewed/Action Taken: No GRAEME-7 AMB Questionnaire GRAEME-7 Date GRAEME - 7 assessed: 10/13/22 Source: Developed by Drs. Darian Khna, Mita Proctor, Vinh Richmond and colleagues, with an educational marge from [employer]. Physical exam (Primary Care) Vital Signs: Last Vital Signs Pulse 81 04/24/23 08:34 BP 140/98 H 04/24/23 08:34 Pulse Ox 98 04/24/23 08:34 Oxygen Delivery Method Room Air 04/24/23 08:34 BMI result Body Mass Index 34.0 Tobacco/Smoking Status: Tobacco use Status Tobacco use date assessed 04/24/23 04/24/23 08:40 Patient Tobacco Use Status Former Tobacco user 04/24/23 08:40 Tobacco use type Cigarette 04/24/23 08:40 e-Cigarette/Vaping Use Never Used 04/24/23 08:40 PHQ-9: PHQ-9 Score PHQ-9: Total score 0 04/24/23 08:40 Depression Screening Interpretation: Negative Thrive Assessment: Date of Thrive Assessment Date Thrive assessed 10/13/22 04/24/23 08:40 Const General: alert; No acute distress Eyes Conjunctivae: conjunctivae normal Resp Auscultation: clear to auscultation bilaterally Cardio Rate: regular rate Rhythm: regular rhythm GI Inspection: Yes normal to inspection Extrem General: Yes normal to inspection and No edema Office Procedures Flu Questionnaire Does the patient have a severe egg allergy?: No Does the patient have severe life threatening allergies?: No Does the patient have a fever or illness today?: No Has the patient ever had Guillain-Lester Syndrome?: No Has the patient ever had any past reaction to a flu shot?: No Immunizations flu vacc [id number] 6mos up(PF) 60 mcg(15 mcgx4)/0.5 mL IM syringe Performing Provider: Maximino Quarles MD [facility] Administered by: Kerry Vivas CMA on 04/24/23 08:41 Dose Route Admin Location Dispensed Lot Number Expiration Date NDC [employer] 0.5 mL IM Left Deltoid 0.5 mL [id number] 01/10/24 36263-580-37 [place] VIS Given Date VIS Provided VIS Publication Date 04/24/23 Single Vaccine 21 Eligibility Eligibility Date Funding Source Not [facility] Eligible 04/24/23 Private Assessment and Plan Assessment & Plan (1) Vitamin B1 deficiency: Code(s): E51.9 - Thiamine deficiency, unspecified Plan: Advised to take multivitamin with B 1. Decrease alcohol intake (2) Hypertension: Code(s): I10 - Essential (primary) hypertension Plan: Blood pressure elevated start on lisinopril. Patient states was given hydrochlorothiazide but had epistaxis from this peer (3) Tobacco abuse: Comment: stopped 03/2023 Code(s): Z72.0 - Tobacco use Plan: Strongly advised to stop smoking ! Patient has stopped 1 month ago and advised to continue pursuing the problem (4) Obstructive sleep apnea: Comment: Mild 2017 Code(s): G47.33 - Obstructive sleep apnea (adult) (pediatric) Plan: has not been using the CPAP - financial discussed about importance of treating sleep apnea for blood pressure control (5) Obesity: Code(s): E66.9 - Obesity, unspecified Plan: Patient in touch with weight management and planned laparoscopic sleeve gastrectomy (6) GERD (gastroesophageal reflux disease): Code(s): K21.9 - Gastro-esophageal reflux disease without esophagitis Plan: Avoid the foods that causes that usually spicy foods, tomato products, juices, coffee, soda and foods that your sensitive to. After eating do not lie down, allow 3-4 hours before in lie down. And keep the head of bed above 30 degrees to avoid the acid from going up. On pantoprazole (7) Right knee pain: Code(s): M25.561 - Pain in right knee Plan: will get the xray resdults from [facility] in [place] Orders: Orders Influenza [id number] Immunization Today Z23 - Encounter for immunization Medications: New lisinopril 5 mg PO DAILY 30 tabs 5RF I10 - Essential (primary) hypertension thiamine HCl (vitamin B1) 50 mg PO DAILY 30 tabs 6RF E51.9 - Thiamine deficiency, unspecified Coding Level of Care Code Est Pt Level 4 (57278) Diagnoses Vitamin B1 deficiency E51.9 Hypertension I10 Tobacco abuse Z72.0 Obstructive sleep apnea G47.33 Obesity E66.9 GERD (gastroesophageal reflux disease) K21.9 Right knee pain M25.561
== END 2023-04-24 09:23 | disposition home or self-care (01) ==
PROVIDERS: PCP Internal Medicine; Visit Provider Internal Medicine
DX: Z23 Encounter for immunization (principal); M25.561 Pain in right knee; I10 Essential (primary) hypertension; F17.210 Nicotine dependence, cigarettes, uncomplicated; E51.9 Thiamine deficiency, unspecified; G47.33 Obstructive sleep apnea (adult) (pediatric); K21.9 Gastro-esophageal reflux disease without esophagitis
CPT/HCPCS: 90471; 90686; 99214

== ENCOUNTER 2023-05-07 10:57 | Outpatient (AMB) | payer OTHER, SELFPAY ==
--- NOTE | 2023-05-07 11:00 | A.OFFVIS_ITS ---
Intake VS Expanded 05/07/23 11:09 BP 160/95 H Blood Pressure Location Rt brachial Blood Pressure Position Sitting Pulse 88 Pulse Source Pulse Oximeter Temp 96.4 F L Temperature Source Tympanic Pulse Oximetry 97 Oxygen Delivery Method Room Air Height 5 ft 11 in Weight 236 lb 6.4 oz BMI 33.0 Body Fat % 32.8 Body Fat Mass 77.6 Fat Free Mass 158.8 Visceral Fat Rating 13.0 Body Water % 46.5 Body Water Mass 109.8 Muscle Mass/Score 150.8 Basal Metabolic Rate/Score 2,185 Intake Visit Reasons: (OV) Pre Op LSG 05/20/23 Grey Percher Required: No Diesel Locomotive Firer/Fireman: Diesel Locomotive Firer/Fireman offered & declined Allergies fluoxetine [Prozac] Allergy (Unknown, Verified 05/07/23 11:06) Unknown hydrochlorothiazide Adverse Reaction (Intermediate, Unverified 05/07/23 11:06) epistaxis Wellbutrin Allergy (Unknown, Uncoded 05/07/23 11:06) Unknown Medication List - Last Reconciled 05/07/23 by Matty Marquez MD acetaminophen 500 mg (15 mL) PO Q6H PRN albuterol sulfate 2.5 mg (3 mL) inhalation Q4-6H PRN 90 days albuterol sulfate 90 mcg/actuation 1 inh inhalation Q4-6H PRN cholecalciferol (vitamin D3) 50 mcg PO DAILY fluticasone propion-salmeterol 250-50 mcg/dose (Advair Diskus) 1 inh inhalation BID inulin (Fiber Gummies) 2 grams PO BID-TID lisinopril 5 mg PO DAILY nebulizers (Aeroneb Go Nebulizer) As directed ondansetron HCl 4 mg PO Q6H PRN pantoprazole 40 mg PO QAM 30 days pantoprazole 40 mg PO QAM 30 days polyethylene glycol 3350 (Miralax) Take 7 packets 2 days before surgery and 7 packets 1 day before surgery. Mix each packet with 8 oz's of water before surgery. sucralfate 10 mL PO BID 30 days thiamine HCl (vitamin B1) 50 mg PO DAILY HPI HPI Comments History of Present Illness Details The patient is a 32-year-old gentleman with a history of obstructive sleep apnea on CPAP, hypertension, asthma, GERD was a cigarette smoker. He is interested in laparoscopic sleeve gastrectomy because of numerous attempts of medical weight loss with resultant weight regain. He recently experienced an upper respiratory tract infection that required a Z- Ismael, steroids, inhalers and he is on the mend, but he has not been exercising f or the past 2 weeks. He has still lost 4 lb since his last visit. He quit smoking & urine contine/nicotine was negative & he denies nicotine use. The patient presented today for preoperative discussion and OR consents regarding a laparoscopic sleeve gastrectomy, possible hiatal hernia repair, intraoperative endoscopy and possible ventral hernia repair. However, he reports that he slipped yesterday and fell striking his right upper mouth on a stair, breaking 2 teeth and had emergency dental surgery. He is quite swollen today. He also notes that he has been having right knee pain and had an x-ray that demonstrated an osteo chondroma and he was advised this is a benign tumor that does not require operative intervention. He is tolerating the current meal plan and no changes made with that. The importance of postoperative and ongoing exercise regarding his abdominal ultrasound and NAFLD/fibrosis was reviewed with the patient. I texted Dr. Mortensen from anesthesia regarding the recent facial/oral trauma and swelling and he recommended that the patient be allowed to have an official assessment in 2 weeks. Patient notes that he has a follow-up with his dentist in 2 weeks and will be having a temporary partial plate made and the ultimate plan for a dental implant down the road is the goal, however, he would like to proceed with sleeve gastrectomy this year. Patient enrolled in the surgical weight loss program here at [facility] 09/06/20, was noted to be H pylori positive but negative on the retest and dropped out somewhere between December 25, 2020 and 03/07/2022. He reestablished entry into the surgical weight loss program 03/07/2022 and dropped out again. Per PCP notes from 12/18/22, the patient enrolled in [facility] program Nov, 2022 and reports that due to a recurring issue with appointments being canceled and rescheduled, he decided to return here. The patient presents today with a weight of 236.4/BMI 33.0, which is down 4lbs from his last visit. He has lost 22 lbs since re-entering the SWL program. His heaviest adult weight of 258 lb/BMI 36.0. His surgical goal weight is 232 lb after 25 lb of weight loss/10% of his entry weight. We also reviewed the import ance of nicotine cessation which will include not using nicotine gum, nicotine lozenges or nicotine patches since they cause gastric acid production which can cause surgical complications. He met with Luciana Thompson and is following her recommendations regarding diet without any issues. He does note some bowel irregularity which we discussed and ongoing GERD which will be managed with Protonix. He is still experiencing GERD in spite of his 9 lb weight loss and was unable to obtain his Protonix due to insurance changes; he requested that I resubmitted Protonix to [facility] on [address] in [place] at his last visit. He reports his GERD has resolved at this point & he's tolerating Protonix without issue. He notes that he lives with his brittanye, who has quit smoking & entered our SWL jose beltran and his [id number] who is a smoker who is also obese. Meal plan: Patient awakens 07:30am patient goes to bed at midnight to 00:30am He is having a Premier protein premade shake with 30 g of protein Lunch is usually around noon to 01:00 o'clock and includes 8 oz of cottage cheese Patient's dinner is 6 oz of lean protein with green vegetables, usually bra clear spinach His current snacks include [employer] chips. 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 His current exercise regime is treadmill with alternating inclines for 45 minutes 3 days a week The goal to increase to 4 days per week was discussed and the patient will proceed Data from his original entry in 2020: ESS 10 GERD 16 (not satisfied with management) DAVID 2 QOL 103 PFSH Medical History Hypertension Asthma GERD (gastroesophageal reflux disease) Back pain Surgical History Hx of wisdom tooth extraction Hx of circumcision Family History Father Myocardial infarction Mother HTN (hypertension) Diabetes Maternal Grandmother Stomach cancer Maternal Grandfather Prostate cancer Maternal Aunt Metastasis to breast Maternal Aunt Breast cancer Brother No problems noted. Brother No problems noted. Brother No problems noted. Brother No problems noted. Sister No problems noted. Daughter No problems noted. Social History Household Members: Family Housing: Apartment Alcohol intake: current Alcohol intake frequency: a few times a week Patient Tobacco Use Status: Former Tobacco user Tobacco use type: Cigarette Years Smoked: 1 month e-Cigarette/Vaping Use: Never Used Second Hand Smoke Exposure: No Current occupational status: employed Cognitive needs: No Hearing needs: No Vision needs: No Review of Systems Const All systems reviewed & are unremarkable except as noted in HPI and below Reports as per HPI Physical Exam On exam he is anicteric and nontoxic He is in no acute respiratory distress His right maxillofacial area and upper lip are significantly swollen and on internal exam, 2 broken teeth appear present in the upper right. Abdomen is obese and soft with no tenderness No lower extremity edema is present on today's visit Results Reviewed Results Reviewed: Labs 03/12/23 Vit B1 low at <6, Vit D low at 20 CRP elevated at 0.63 HbA1C 4.9 BUN 11, Cr 0.85 H. pylori negative Lipids, LFTs, Iron studies WNL Urine nicotine/contine: <2 (negative) Diagnostic imaging 03/31/23 CXR NAD UGI ? possible HH, +GERD Abd U/S elastography: NAFLD & fibrosis vs previous study, shear wave 1.46, left lobe 10.6cm Assessment & Plan Assessment & Plan (1) BMI 32.0-32.9,adult: Code(s): Z68.32 - Body mass index [BMI] 32.0-32.9, adult (2) Obstructive sleep apnea: Comment: Mild 2018 Code(s): G47.33 - Obstructive sleep apnea (adult) (pediatric) (3) Vitamin D deficiency: Code(s): E55.9 - Vitamin D deficiency, unspecified (4) GERD (gastroesophageal reflux disease): Code(s): K21.9 - Gastro-esophageal reflux disease without esophagitis (5) Asthma: Code(s): J45.909 - Unspecified asthma, uncomplicated (6) Vitamin B1 deficiency: Code(s): E51.9 - Thiamine deficiency, unspecified (7) Hypertension: Code(s): I10 - Essential (primary) hypertension Plan The patient is congratulated on his ongoing weight loss, healthy lifestyle changes and increased activity. Options regarding ongoing medical management, 2nd opinion and surgical options of sleeve gastrectomy versus gastric bypass. In communication with Anesthesia, the safest course of action at this time is to allow the patient's facial trauma and swelling to resolve and I will see the patient back in 2 weeks. Will continue the current meal plan and we discussed the use of ice for his maxillofacial trauma regarding swelling and the fact that exercise, especially significant exercise may contribute to bleeding and swelling at this time. He notes that his right knee has been limiting activity. The importance of the liver shrinking diet given his NAFLD & liver fibrosis was discussed. He will be re-evaluated at the next appointment in 2 weeks and see had other in anesthesia for an evaluation at that time in 2 weeks. Orders: Orders TSH reflex Free T4 Today E51.9 - Thiamine deficiency, unspecified, G47.33 - Obstructive sleep apnea (adult) (pediatric), I10 - Essential (primary) hypertension, J45.909 - Unspecified asthma, uncomplicated, Z68.35 - Body mass index [BMI] 35.0-35.9, adult IRON PROFILE Today E51.9 - Thiamine deficiency, unspecified, G47.33 - Obstructive sleep apnea (adult) (pediatric), I10 - Essential (primary) hypertension, J45.909 - Unspecified asthma, uncomplicated, Z68.35 - Body mass index [BMI] 35.0-35.9, adult Vitamin A Today E51.9 - Thiamine deficiency, unspecified, G47.33 - Obstructive sleep apnea (adult) (pediatric), I10 - Essential (primary) hypertension, J45.909 - Unspecified asthma, uncomplicated, Z68.35 - Body mass index [BMI] 35.0-35.9, adult Lipid Panel Today E51.9 - Thiamine deficiency, unspecified, G47.33 - Obstructive sleep apnea (adult) (pediatric), I10 - Essential (primary) hypertension, J45.909 - Unspecified asthma, uncomplicated, Z68.35 - Body mass index [BMI] 35.0-35.9, adult Type and Screen Today E51.9 - Thiamine deficiency, unspecified, G47.33 - Obstructive sleep apnea (adult) (pediatric), I10 - Essential (primary) hypertension, J45.909 - Unspecified asthma, uncomplicated, Z68.35 - Body mass index [BMI] 35.0-35.9, adult Vitamin B1 Today E51.9 - Thiamine deficiency, unspecified, G47.33 - Obstructive sleep apnea (adult) (pediatric), I10 - Essential (primary) hypertension, J45.909 - Unspecified asthma, uncomplicated, Z68.35 - Body mass index [BMI] 35.0-35.9, adult Vitamin B12 Today E51.9 - Thiamine deficiency, unspecified, G47.33 - Obstructive sleep apnea (adult) (pediatric), I10 - Essential (primary) hypertension, J45.909 - Unspecified asthma, uncomplicated, Z68.35 - Body mass index [BMI] 35.0-35.9, adult Ferritin Today E51.9 - Thiamine deficiency, unspecified, G47.33 - Obstructive sleep apnea (adult) (pediatric), I10 - Essential (primary) hypertension, J45.909 - Unspecified asthma, uncomplicated, Z68.35 - Body mass index [BMI] 35.0-35.9, adult Zinc Today E51.9 - Thiamine deficiency, unspecified, G47.33 - Obstructive sleep apnea (adult) (pediatric), I10 - Essential (primary) hypertension, J45.909 - Unspecified asthma, uncomplicated, Z68.35 - Body mass index [BMI] 35.0-35.9, adult Comprehensive Met. Panel Today E51.9 - Thiamine deficiency, unspecified, G47.33 - Obstructive sleep apnea (adult) (pediatric), I10 - Essential (primary) hypertension, J45.909 - Unspecified asthma, uncomplicated, Z68.35 - Body mass index [BMI] 35.0-35.9, adult Hemoglobin A1c Today E51.9 - Thiamine deficiency, unspecified, G47.33 - Obstructive sleep apnea (adult) (pediatric), I10 - Essential (primary) hypertension, J45.909 - Unspecified asthma, uncomplicated, Z68.35 - Body mass index [BMI] 35.0-35.9, adult Prothrombin Time INR Today E51.9 - Thiamine deficiency, unspecified, G47.33 - Obstructive sleep apnea (adult) (pediatric), I10 - Essential (primary) hypertension, J45.909 - Unspecified asthma, uncomplicated, Z68.35 - Body mass index [BMI] 35.0-35.9, adult C Reactive Protein Today E51.9 - Thiamine deficiency, unspecified, G47.33 - Obstructive sleep apnea (adult) (pediatric), I10 - Essential (primary) hypertens ion, J45.909 - Unspecified asthma, uncomplicated, Z68.35 - Body mass index [BMI] 35.0-35.9, adult Partial Thromboplastin Time Today E51.9 - Thiamine deficiency, unspecified, G47.33 - Obstructive sleep apnea (adult) (pediatric), I10 - Essential (primary) hypertension, J45.909 - Unspecified asthma, uncomplicated, Z68.35 - Body mass index [BMI] 35.0-35.9, adult Complete Blood Count Auto Diff Today E51.9 - Thiamine deficiency, unspecified, G47.33 - Obstructive sleep apnea (adult) (pediatric), I10 - Essential (primary) hypertension, J45.909 - Unspecified asthma, uncomplicated, Z68.35 - Body mass index [BMI] 35.0-35.9, adult PTHI Today E51.9 - Thiamine deficiency, unspecified, G47.33 - Obstructive sleep apnea (adult) (pediatric), I10 - Essential (primary) hypertension, J45.909 - Unspecified asthma, uncomplicated, Z68.35 - Body mass index [BMI] 35.0-35.9, adult Vitamin D 25-OH Total Today E51.9 - Thiamine deficiency, unspecified, G47.33 - Obstructive sleep apnea (adult) (pediatric), I10 - Essential (primary) hypertension, J45.909 - Unspecified asthma, uncomplicated, Z68.35 - Body mass index [BMI] 35.0-35.9, adult Medications: New polyethylene glycol 3350 (Miralax) Take 7 packets 2 days before surgery and 7 packets 1 day before surgery. Mix each packet with 8 oz's of water before surgery. 14 packets 0RF sucralfate 10 mL PO BID 30 days 600 mL 2RF acetaminophen 500 mg (15 mL) PO Q6H PRN 237 mL 2RF fever or pain ondansetron HCl 4 mg PO Q6H PRN 20 tabs 0RF nausea and vomiting pantoprazole 40 mg PO QAM 30 days 30 tabs 2RF Coding Level of Care Code Est Pt Level 4 (29635) Diagnoses BMI 32.0-32.9,adult Z68.32 Obstructive sleep apnea G47.33 Vitamin D deficiency E55.9 GERD (gastroesophageal reflux disease) K21.9 Asthma J45.909 Vitamin B1 deficiency E51.9 Hypertension I10
[2023-05-07 11:09] VITALS: BP 160/95; PULSE 88; TEMP 35.8; O2SAT 97; BMI 33.0
== END 2023-05-07 11:54 | disposition home or self-care (01) ==
PROVIDERS: PCP Internal Medicine; Visit Provider Surgery
DX: E66.09 Other obesity due to excess calories (principal); Z68.32 Body mass index [BMI] 32.0-32.9, adult; E55.9 Vitamin D deficiency, unspecified; K21.9 Gastro-esophageal reflux disease without esophagitis
CPT/HCPCS: 99499

== ENCOUNTER → 2023-05-07 10:57 | Outpatient (BNVA) | payer OTHER, SELFPAY | PROVIDERS: PCP Internal Medicine; Visit Provider Surgery | DX: Z68.35 Body mass index [BMI] 35.0-35.9, adult (principal); E51.9 Thiamine deficiency, unspecified; I10 Essential (primary) hypertension; G47.33 Obstructive sleep apnea (adult) (pediatric); J45.909 Unspecified asthma, uncomplicated ==

== ENCOUNTER 2023-05-21 13:34 | Outpatient (AMB) | payer OTHER, SELFPAY ==
--- NOTE | 2023-05-21 13:35 | A.OFFVIS_ITS ---
Intake VS Expanded 05/21/23 13:44 BP 152/83 H Blood Pressure Location Rt brachial Blood Pressure Position Sitting Pulse 80 Pulse Source Pulse Oximeter Temp 97.4 F Temperature Source Tympanic Pulse Oximetry 96 Oxygen Delivery Method Room Air Height 5 ft 11 in Weight 233 lb 9.6 oz BMI 32.6 Body Fat % 31.7 Body Fat Mass 74.0 Fat Free Mass 159.4 Visceral Fat Rating 13.0 Body Water % 47.6 Body Water Mass 111.2 Muscle Mass/Score 151.4 Basal Metabolic Rate/Score 2,188 Intake Visit Reasons: (OV) Pre Op LSG Distribution Estimator Required: No Authorization Specialist: Authorization Specialist offered & declined Allergies fluoxetine [Prozac] Allergy (Unknown, Verified 05/21/23 13:39) Unknown hydrochlorothiazide Adverse Reaction (Intermediate, Unverified 05/21/23 13:39) epistaxis Wellbutrin Allergy (Unknown, Uncoded 05/21/23 13:39) Unknown Medication List - Last Reconciled 05/21/23 by aMtty Marquez MD, FACS, FASMBS acetaminophen 500 mg (15 mL) PO Q6H PRN acetaminophen 500 mg (15 mL) PO Q6H PRN albuterol sulfate 2.5 mg (3 mL) inhalation Q4-6H PRN 90 days albuterol sulfate 90 mcg/actuation 1 inh inhalation Q4-6H PRN cholecalciferol (vitamin D3) 50 mcg PO DAILY fluticasone propion-salmeterol 250-50 mcg/dose (Advair Diskus) 1 inh inhalation BID inulin (Fiber Gummies) 2 grams PO BID-TID lisinopril 5 mg PO DAILY nebulizers (Aeroneb Go Nebulizer) As directed ondansetron HCl 4 mg PO Q6H PRN ondansetron HCl 4 mg PO Q6H PRN pantoprazole 40 mg PO QAM 30 days pantoprazole 40 mg PO QAM 30 days pantoprazole 40 mg PO QAM 30 days polyethylene glycol 3350 (Miralax) Take 7 packets 2 days before surgery and 7 packets 1 day before surgery. Mix each packet with 8 oz's of water before surgery. polyethylene glycol 3350 (Miralax) Take 7 packets 2 days before surgery and 7 packets 1 day before surgery. Mix each packet with 8 oz's of water before surgery. sucralfate 10 mL PO BID 30 days sucralfate 10 mL PO BID 30 days thiamine HCl (vitamin B1) 50 mg PO DAILY HPI HPI Comments History of Present Illness Details The patient is a 32-year-old gentleman with a history of obstructive sleep apnea on CPAP, hypertension, asthma, GERD was a cigarette smoker. He is interested in laparoscopic sleeve gastrectomy because of numerous failed attempts of medical weight loss with resultant weight regain. The patient presented today for preoperative discussion and OR consents regarding a laparoscopic sleeve gastrectomy, possible hiatal hernia repair, intraoperative endoscopy and possible ventral hernia repair. At his prior visit, he reports that he slipped yesterday and fell striking his right upper mouth on a stair, breaking 2 teeth and had emergency dental surgery. His swelling has resolved and he has an assessment with anesthesia given this unexpected injury. He also notes that he has been having right knee pain and had an x-ray that demonstrated an osteo chondroma and he was advised this is a benign tumor that does not require operative intervention. He is tolerating the current meal plan and no changes made. Liver shrinking diet was reviewed with the patient and he will begin today. The importance of postoperative and ongoing exercise regarding his abdominal ultrasound and NAFLD/fibrosis was reviewed with the patient. Patient enrolled in the surgical weight loss program here at [facility] [place], was noted to be H pylori positive but negative on the retest and dropped out somewhere between December 25, 2020 and 03/07/2022. He reestablished entry into the surgical weight loss program 03/07/2022 and dropped out again. Per PCP notes from 12/18/22, the patient enrolled in [facility] program Nov, 2022 and reports that due to a recurring issue with appointments being canceled and rescheduled, he decided to return here. The patient presents today with a weight of 233.6/BMI 32.6, which is down 6 lbs from his last visit. He has lost 25 lbs since re-entering the SWL program. His heaviest adult weight of 258 lb/BMI 36.0. His surgical goal weight is 232 lb after 25 lb of weight loss/10% of his entry weight. We also reviewed the importance of nicotine cessation which will include not using nicotine gum, nicotine lozenges or nicotine patches since they cause gastric acid production which can cause surgical complications. He met with Luciana Thompson and is following her recommendations regarding diet without any issues. He does note some bowel irregularity which we discussed and ongoing GERD which will be managed with Protonix. He is still experiencing GERD in spite of his weight loss and was unable to obtain his Protonix due to insurance changes; he requested that I resubmitted Protonix to [facility] on [address] in [place] at his last visit. He reports his GERD has resolved at this point & he's tolerating Protonix without issue. He notes that he lives with his fiangeloe, who has quit smoking & entered our SWL program and his [id number] who is a smoker who is also obese. Meal plan: Patient awakens 07:30am patient goes to bed at midnight to 00:30am He is having a Premier protein premade shake with 30 g of protein Lunch is usually around noon to 01:00 o'clock and includes 8 oz of cottage cheese Patient's dinner is 6 oz of lean protein with green vegetables, usually bra clear spinach His current snacks include Quest chips. 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 His current exercise regime is treadmill with alternating inclines for 45 minutes 3 days a week The goal to increase to 4 days per week was discussed and the patient will proceed Data from his original entry in 2020: ESS 10 GERD 16 (not satisfied with management) DAVID 2 QOL 103 PFSH Medical History Hypertension Asthma GERD (gastroesophageal reflux disease) Back pain Surgical History Hx of wisdom tooth extraction Hx of circumcision Family History Father Myocardial infarction Mother HTN (hypertension) Diabetes Maternal Grandmother Stomach cancer Maternal Grandfather Prostate cancer Maternal Aunt Metastasis to breast Maternal Aunt Breast cancer Brother No problems noted. Brother No problems noted. Brother No problems noted. Brother No problems noted. Sister No problems noted. Daughter No problems noted. Social History Household Members: Family Housing: Apartment Alcohol intake: current Alcohol intake frequency: a few times a week Patient Tobacco Use Status: Former Tobacco user Tobacco use type: Cigarette Years Smoked: 1 month e-Cigarette/Vaping Use: Never Used Second Hand Smoke Exposure: No Current occupational status: employed Cognitive needs: No Hearing needs: No Vision needs: No Review of Systems Const All systems reviewed & are unremarkable except as noted in HPI and below Reports as per HPI Physical Exam On exam he is anicteric and nontoxic He is in no acute respiratory distress His right maxillofacial area and upper lip swelling have resolved and I do not appreciate any loose teeth or problems with the missing tooth socket. Abdomen is obese and soft with no tenderness No lower extremity edema is present on today's visit Results Reviewed Results Reviewed: Labs 03/12/23 Vit B1 low at <6, Vit D low at 20 CRP elevated at 0.63 HbA1C 4.9 BUN 11, Cr 0.85 H. pylori negative Lipids, LFTs, Iron studies WNL Urine nicotine/contine: <2 (negative) Diagnostic imaging 03/31/23 CXR NAD UGI ? possible HH, +GERD Abd U/S elastography: NAFLD & fibrosis vs previous study, shear wave 1.46, left lobe 10.6cm Assessment & Plan Assessment & Plan (1) Obesity: Code(s): E66.9 - Obesity, unspecified (2) Vitamin D deficiency: Code(s): E55.9 - Vitamin D deficiency, unspecified (3) GERD (gastroesophageal reflux disease): Code(s): K21.9 - Gastro-esophageal reflux disease without esophagitis (4) Obstructive sleep apnea: Comment: Mild 2018 Code(s): G47.33 - Obstructive sleep apnea (adult) (pediatric) (5) Asthma: Code(s): J45.909 - Unspecified asthma, uncomplicated (6) Hypertension: Code(s): I10 - Essential (primary) hypertension (7) Right knee pain: Code(s): M25.561 - Pain in right knee (8) Osteochondroma of fibula: Code(s): D16.20 - Benign neoplasm of long bones of unspecified lower limb Plan The pt is congratulated on his healthy lifestyle changes & dedication to his health. Options including medical management, second opinion & bariatric surgery options were reviewed & questions answered. The pt seems to understand & wants to proceed with a laparoscopic sleeve gastrectomy, possibly open, possible hiatal hernia repair, upper endoscopy & possible ventral hernia repair. I reviewed the inherent risks of this procedure which include, but are not limited to: Bleeding that could require another operation or blood transfusion; the inherent risks of transfusion reaction infectious disease from blood transfusions; the risk of staple line leaks that could cause sepsis, multi- system organ failure and ; the risk of mesenteric or deep vein thrombosis of the lower extremities that could cause a fatal pulmonary embolism was reviewed; the risk of GERD that could require conversion to gastric bypass was discussed; the risk of recurrent hiatal hernia, especially in the setting of weight regain was reviewed. The risk of weight regain if maladaptive eating and sedentary behavior continue was discussed. The importance of proper diet and increased activity to augment surgical weight loss and the fact that no operation would result in weight loss of poor dietary decisions and sedentary behavior are resumed were discussed at length and apparently understood. The patient had the option of having a automotive starter repairer present and declined this option. The pt will f/u today with anesthesia given his prior facial trauma to confirm they're in agreement re: proceeding after the lost teeth & swelling. Patient will begin liver shrinking diet. He is previously sent prescriptions including bowel prep were reviewed for the perioperative and postoperative plan. Importance of obtaining celebrate 4 in 1 protein shakes and activity restrictions were reviewed. Patient will void his urinary bladder pulmonology physician, receive Ancef, 2 g IV and SCDs will be in place assuming that anesthesia is in agreement with the plan to proceed. Orders: Orders Vitamin A Today A04.8 - Other specified bacterial intestinal infections, E55.9 - Vitamin D deficiency, unspecified, E66.9 - Obesity, unspecified, G47.33 - Obstructive sleep apnea (adult) (pediatric), K21.9 - Gastro-esophageal reflux disease without esophagitis, Z68.34 - Body mass index [BMI] 34.0-34.9, adult Comprehensive Met. Panel Today A04.8 - Other specified bacterial intestinal infections, E55.9 - Vitamin D deficiency, unspecified, E66.9 - Obesity, unspecified, G47.33 - Obstructive sleep apnea (adult) (pediatric), K21.9 - Gastro-esophageal reflux disease without esophagitis, Z68.34 - Body mass index [BMI] 34.0-34.9, adult Hemoglobin A1c Today A04.8 - Other specified bacterial intestinal infections, E55.9 - Vitamin D deficiency, unspecified, E66.9 - Obesity, unspecified, G47.33 - Obstructive sleep apnea (adult) (pediatric), K21.9 - Gastro-esophageal reflux disease without esophagitis, Z68.34 - Body mass index [BMI] 34.0-34.9, adult Prothrombin Time INR Today A04.8 - Other specified bacterial intestinal infections, E55.9 - Vitamin D deficiency, unspecified, E66.9 - Obesity, unspecified, G47.33 - Obstructive sleep apnea (adult) (pediatric), K21.9 - Gastro-esophageal reflux disease without esophagitis, Z68.34 - Body mass index [BMI] 34.0-34.9, adult Vitamin B1 Today A04.8 - Other specified bacterial intestinal infections, E55.9 - Vitamin D deficiency, unspecified, E66.9 - Obesity, unspecified, G47.33 - Obstructive sleep apnea (adult) (pediatric), K21.9 - Gastro-esophageal reflux disease without esophagitis, Z68.34 - Body mass index [BMI] 34.0-34.9, adult C Reactive Protein Today A04.8 - Other specified bacterial intestinal infections, E55.9 - Vitamin D deficiency, unspecified, E66.9 - Obesity, unspecified, G47.33 - Obstructive sleep apnea (adult) (pediatric), K21.9 - Gastro-esophageal reflux disease without esophagitis, Z68.34 - Body mass index [BMI] 34.0-34.9, adult Partial Thromboplastin Time Today A04.8 - Other specified bacterial intestinal infections, E55.9 - Vitamin D deficiency, unspecified, E66.9 - Obesity, unspecified, G47.33 - Obstructive sleep apnea (adult) (pediatric), K21.9 - Gastro-esophageal reflux disease without esophagitis, Z68.34 - Body mass index [BMI] 34.0-34.9, adult Vitamin B12 Today A04.8 - Other specified bacterial intestinal infections, E55.9 - Vitamin D deficiency, unspecified, E66.9 - Obesity, unspecified, G47.33 - Obstructive sleep apnea (adult) (pediatric), K21.9 - Gastro-esophageal reflux disease without esophagitis, Z68.34 - Body mass index [BMI] 34.0-34.9, adult PTHI Today A04.8 - Other specified bacterial intestinal infections, E55.9 - Vitamin D deficiency, unspecified, E66.9 - Obesity, unspecified, G47.33 - Obstructive sleep apnea (adult) (pediatric), K21.9 - Gastro-esophageal reflux disease without esophagitis, Z68.34 - Body mass index [BMI] 34.0-34.9, adult Vitamin D 25-OH Total Today A04.8 - Other specified bacterial intestinal infec tions, E55.9 - Vitamin D deficiency, unspecified, E66.9 - Obesity, unspecified, G47.33 - Obstructive sleep apnea (adult) (pediatric), K21.9 - Gastro-esophageal reflux disease without esophagitis, Z68.34 - Body mass index [BMI] 34.0-34.9, adult Zinc Today A04.8 - Other specified bacterial intestinal infections, E55.9 - Vitamin D deficiency, unspecified, E66.9 - Obesity, unspecified, G47.33 - Obstructive sleep apnea (adult) (pediatric), K21.9 - Gastro-esophageal reflux disease without esophagitis, Z68.34 - Body mass index [BMI] 34.0-34.9, adult Medications: New polyethylene glycol 3350 (Miralax) Take 7 packets 2 days before surgery and 7 packets 1 day before surgery. Mix each packet with 8 oz's of water before surgery. 14 packets 0RF sucralfate 10 mL PO BID 30 days 600 mL 2RF ondansetron HCl 4 mg PO Q6H PRN 20 tabs 0RF nausea and vomiting pantoprazole 40 mg PO QAM 30 days 30 tabs 2RF acetaminophen 500 mg (15 mL) PO Q6H PRN 237 mL 2RF fever or pain Coding Level of Care Code Est Pt Level 4 (76993) Diagnoses Obesity E66.9 Vitamin D deficiency E55.9 GERD (gastroesophageal reflux disease) K21.9 Obstructive sleep apnea G47.33 Asthma J45.909 Hypertension I10 Right knee pain M25.561 Osteochondroma of fibula D16.20
[2023-05-21 13:44] VITALS: BP 152/83; PULSE 80; TEMP 36.3; O2SAT 96; BMI 32.6
== END 2023-05-21 14:02 | disposition home or self-care (01) ==
PROVIDERS: PCP Internal Medicine; Visit Provider Surgery
DX: E66.9 Obesity, unspecified (principal); Z68.32 Body mass index [BMI] 32.0-32.9, adult; K21.9 Gastro-esophageal reflux disease without esophagitis; G47.33 Obstructive sleep apnea (adult) (pediatric); J45.909 Unspecified asthma, uncomplicated; I10 Essential (primary) hypertension; M25.561 Pain in right knee; D16.20 Benign neoplasm of long bones of unspecified lower limb
CPT/HCPCS: 99214

== ENCOUNTER → 2023-05-21 13:34 | Outpatient (BNVA) | payer OTHER, SELFPAY | PROVIDERS: PCP Internal Medicine; Visit Provider Surgery | DX: E66.9 Obesity, unspecified (principal); E55.9 Vitamin D deficiency, unspecified; J45.909 Unspecified asthma, uncomplicated; G47.33 Obstructive sleep apnea (adult) (pediatric); K21.9 Gastro-esophageal reflux disease without esophagitis; I10 Essential (primary) hypertension; M25.561 Pain in right knee; D16.20 Benign neoplasm of long bones of unspecified lower limb; Z68.32 Body mass index [BMI] 32.0-32.9, adult | CPT/HCPCS: 99212 ==

== ENCOUNTER → 2023-06-01 08:50 | Outpatient (BNV) | payer OTHER, SELFPAY | PROVIDERS: PCP Internal Medicine; Visit Provider Surgery | DX: E66.9 Obesity, unspecified (principal); Z68.33 Body mass index [BMI] 33.0-33.9, adult | CPT/HCPCS: 43659; 43775; 99024 ==

== ENCOUNTER 2023-06-01 13:37 | Inpatient (IN) | payer OTHER, SELFPAY ==
[2023-05-19 13:17] LABS: MANUAL DIFF FLAG NO
[2023-05-19 13:47] LABS: Basophils Percent Auto 0.4 % (0-2); Eosinophils Absolute Auto 0.2 X10*3/uL (0.0-0.4); Eosinophils Percent Auto 2.1 % (0-4); Hematocrit 49.5 % (42.0-52.0); Hemoglobin 16.8 g/dl (14.0-18.0); Imm Gran Abs Auto 0.03 X10*3/uL (0.00-0.03); Imm Gran Pct Auto 0.4 % (0.0-0.4); Lymphocytes Absolute Auto 2.1 X10*3/uL (1.2-4.9); Lymphocytes Percent Auto 24.3 % (20-40); Mean Corpuscular HGB Conc 33.9 g/dl (31.0-36.0); Mean Corpuscular Hemoglobin 31.2 pg (27.0-33.0); Mean Corpuscular Volume 91.8 fL (80.0-98.0); Mean Platelet Volume 10.4 fL (9.4-12.4); Monocytes Absolute Auto 0.5 X10*3/uL (0.1-1.2); Monocytes Percent Auto 6.4 % (2-11); Neutrophils Absolute Auto 5.6 x10*3/uL (2.0-8.3); Neutrophils Percent Auto 66.4 % (45-73); Platelet Count 266 X10*3/uL (160-400); Red Blood Count 5.39 X10*6/uL (4.60-5.80); Red Cell Distribution Width 11.4 % (11.0-16.0); White Blood Count 8.4 X10*3/uL (4.8-10.8)
[2023-05-19 13:59] LABS: Estimated Average Glucose 94 mg/dL; Hemoglobin A1c % 4.9 % (<6.0)
[2023-05-19 14:00] LABS: Partial Thromboplastin Time 31.7 SEC (26.0-36.4)
[2023-05-19 14:32] LABS: Alanine Aminotransferase 36 U/L (0-40); Albumin Level 4.4 g/dL (3.5-5.0); Alkaline Phosphatase 90 U/L (39-117); Anion Gap 14 (12-20); Aspartate Amino Transferase 23 U/L (5-37); Bilirubin Total 0.8 mg/dL (0.0-1.0); Blood Urea Nitrogen 12 mg/dL (9-16); C Reactive Protein 0.53 mg/dL (< or = 0.50); Calcium 9.9 mg/dL (8.4-10.2); Carbon Dioxide 27 mmol/L (22-29); Chloride 107 mmol/L (96-108); Cholesterol 144 mg/dL (<200); Estimated Glomerular Filt Rate > 60; Ferritin 321 ng/mL (20-250); Glucose Random 92 mg/dL (60-115); HDL Cholesterol 39 mg/dL (>40); Iron 121 mcg/dL (45-160); LDL Cholesterol Calculated 72 mg/dL (<100); Percent Iron Saturation 33 % (15-50); Potassium 4.6 mmol/L (3.3-5.1); Sodium 143 mmol/L (135-145); TSH reflex Free T4 1.18 uIU/mL (0.32-4.0); Total Iron Binding Capacity 371 mcg/dL (228-428); Total Protein 7.7 g/dL (6.5-8.0); Triglycerides 165 mg/dL (<150); Unsaturated Iron Binding 250 ug/dL
[2023-05-19 14:35] LABS: Vitamin B12 522 pg/mL (200-900)
[2023-05-20 18:13] LABS: PTHI 38 pg/mL (16-77)
[2023-05-21 14:08] VITALS: BP 131/84; PULSE 82; RESP 16; O2SAT 97; BMI 33.1
--- NOTE | 2023-05-21 14:20 | HO.ANESPROP2 ---
Documented by User: Cindi Ring NP 05/28/23 13:15 HPI - Anesthesia Eval Consult details Narrative: 32yo M for Gastrectomy Sleeve-EGD, possible diaphragmatic hernia, possible ventral hernia, possible open, 06/03/23 No recent illness No CP/SOB with treadmill Recent failed root canal ~ 2 weeks ago with significant facial swelling immediately after. Now resolved and airway acceptable for GETA. Asthma stable. No albuterol >1 month GERD. Well controlled on ppi NIMESH. CPAP but doesn't use Former smoker. Quit 2 months ago. ETOH. 5-6 x twice weekly. Encouraged decrease amount of consumption, low risk for withdrawal. PMFSH Active Problems Active Problems: All Active Problems (Updated 05/21/23 @ 14:19 by Suly Boyce RN) Osteochondroma of fibula (Acute) Right knee pain (Acute) Vitamin B1 deficiency (Acute) BMI 35.0-35.9,adult (Acute) Tobacco abuse (Acute) Obstructive sleep apnea (Acute) Hematoma of penis (Acute) Circumcision complication (Acute) BMI 31.0-31.9,adult (Acute) Phimosis of penis (Acute) Balanitis (Acute) Adjustment disorder, unspecified (Acute) H. pylori infection (Acute) Vitamin D deficiency (Acute) BMI 32.0-32.9,adult (Acute) BMI 34.0-34.9,adult (Acute) Obesity (Acute) Hypertension (Acute) Asthma (Acute) GERD (gastroesophageal reflux disease) (Acute) Back pain (Acute) Past Medical History Medical History Obstructive sleep apnea Dental trauma Hypertension Asthma GERD (gastroesophageal reflux disease) Back pain Family History Family History Father Myocardial infarction Mother HTN (hypertension) Diabetes Maternal Grandmother Stomach cancer Maternal Grandfather Prostate cancer Maternal Aunt Metastasis to breast Maternal Aunt Breast cancer Brother No problems noted. Brother No problems noted. Brother No problems noted. Brother No problems noted. Sister No problems noted. Daughter No problems noted. Family history of problems with anesthesia: No Surgical History Surgical History Hx of wisdom tooth extraction Hx of circumcision History of Problems with Anesthesia: No Social History Social History Household Members: Family Housing: Apartment Are you a primary critical care registered nurse to a significant other at home: No Do you presently have visiting nurse or other home services: No Alcohol intake: current Alcohol intake frequency: a few times a week Patient Tobacco Use Status: Former Tobacco user Quit Date: 03/21/2023 Tobacco use type: Cigarette e-Cigarette/Vaping Use: Never Used Second Hand Smoke Exposure: No Use of substances other than those prescribed or required for medical reasons: No Have you been hit, kicked, punched, or otherwise hurt by someone within the past year? If so, by whom?: No Are you DNR?: No Advance Directives: No Advance Directives Information Provided: Yes Advance Directives on File: No Recently lost weight without trying: No Current occupational status: employed Cognitive needs: No Hearing needs: No Vision needs: No Meds Allergies Allergy/AdvReac Type Severity Reaction Status Date / Time fluoxetine [Prozac] Allergy Unknown Unknown Verified 06/01/23 09:05 hydrochlorothiazide AdvReac Intermediate epistaxis Verified 06/01/23 09:05 Wellbutrin Allergy Unknown Unknown Uncoded 06/01/23 09:05 Exam Exam Date and Time: May 21, 2023 1420 Height,Weight and Vital Signs: Height 5 ft 11 in Weight 107.6 kg Last Vital Signs Pulse 82 05/21/23 14:08 Resp 16 05/21/23 14:08 BP 131/84 05/21/23 14:08 Pulse Ox 97 05/21/23 14:08 O2 Del Method Room Air 05/21/23 14:08 Pertinent Lab Results Pertinent Lab Results: Laboratory Tests 05/19/23 05/19/23 13:10 13:16 WBC 8.4 RBC 5.39 Hgb 16.8 Hct 49.5 MCV 91.8 MCH 31.2 MCHC 33.9 RDW 11.4 Plt Count 266 MPV 10.4 Immature Gran % (Auto) 0.4 Neut % (Auto) 66.4 Lymph % (Auto) 24.3 Hancock % (Auto) 6.4 Eos % (Auto) 2.1 Baso % (Auto) 0.4 Lymph # (Auto) 2.1 Hancock # (Auto) 0.5 Eos # (Auto) 0.2 Baso # (Auto) 0.0 Abs Immat Gran (auto) 0.03 Absolute Neuts (auto) 5.6 Absolute Nucleated RBC 0.000 Nucleated RBC % (auto) 0.0 PT 12.0 INR 1.0 APTT 31.7 Sodium 143 Potassium 4.6 Chloride 107 Carbon Dioxide 27 Anion Gap 14 BUN 12 Creatinine 0.79 Estim Creat Clear Calc TNP Estimated GFR > 60 Random Glucose 92 Estimat Average Glucose 94 Hemoglobin A1c % 4.9 Calcium 9.9 Iron 121 TIBC 371 % Saturation 33 Unsat Iron Binding 250 Ferritin 321 H Total Bilirubin 0.8 AST 23 ALT 36 Alkaline Phosphatase 90 C-Reactive Protein 0.53 H Total Protein 7.7 Albumin 4.4 Triglycerides 165 H Cholesterol 144 LDL Cholesterol, Calc 72 HDL Cholesterol 39 L Vitamin B12 522 25-OH Vitamin D Total 31.0 TSH 1.18 PTH Intact 38 Calcium (PTH Intact) 10.0 Blood Type O Positive Antibody Screen NEGATIVE Narrative Narrative: EKG 03/2023 Vent. Rate : 074 BPM Atrial Rate : 074 BPM P-R Int : 126 ms QRS Dur : 096 ms QT Int : 388 ms P-R-T Axes : 064 055 036 degrees QTc Int : 430 ms Normal sinus rhythm Normal ECG When compared with ECG of 12-MAR-2022 12:11, No significant change was found Airway Mallampati Class: III TM Dist: >3cm Neck ROM: Full Loose/Missing/Broken Teeth: Yes (#8 missing) Heart: RRR Lungs: CTAB Assessment and Plan Assessment Anesthesia Assessment: Anesthesia Plan Discussed, Smoking Cess. Discussed and PAT Visit Final Anesthetic Review Family History of Problems with Anesthesia: No History of Problems with Anesthesia: No Documented by User: Hoda Zacarias MD 06/01/23 10:54 [facility] Past Medical History Medical History Obstructive sleep apnea Dental trauma Hypertension Asthma GERD (gastroesophageal reflux disease) Back pain Family History Family History Father Myocardial infarction Mother HTN (hypertension) Diabetes Maternal Grandmother Stomach cancer Maternal Grandfather Prostate cancer Maternal Aunt Metastasis to breast Maternal Aunt Breast cancer Brother No problems noted. Brother No problems noted. Brother No problems noted. Brother No problems noted. Sister No problems noted. Daughter No problems noted. Surgical History Surgical History Hx of wisdom tooth extraction Hx of circumcision Social History Social History Household Members: Family Housing: Apartment Are you a primary critical care registered nurse to a significant other at home: No Do you presently have visiting nurse or other home services: No Alcohol intake: current Alcohol intake frequency: a few times a week Patient Tobacco Use Status: Former Tobacco user Quit Date: 03/21/2023 Tobacco use type: Cigarette e-Cigarette/Vaping Use: Never Used Second Hand Smoke Exposure: No Use of substances other than those prescribed or required for medical reasons: No Have you been hit, kicked, punched, or otherwise hurt by someone within the past year? If so, by whom?: No Are you DNR?: No Advance Directives: No Advance Directives Information Provided: Yes Advance Directives on File: No Recently lost weight without trying: No Current occupational status: employed Cognitive needs: No Hearing needs: No Vision needs: No Meds Allergies Allergy/AdvReac Type Severity Reaction Status Date / Time fluoxetine [Prozac] Allergy Unknown Unknown Verified 06/01/23 09:05 hydrochlorothiazide AdvReac Intermediate epistaxis Verified 06/01/23 09:05 Wellbutrin Allergy Unknown Unknown Uncoded 06/01/23 09:05 Exam Airway Mallampati Class: II Partial: Upper Loose/Missing/Broken Teeth: Upper Assessment and Plan Final Anesthetic Review NPO: Yes ASA Class: II Final Preanesthetic Review: Meds/Allgs Chart Reviewed, Consent Obtained/Reviewed and Anes Risks/Benef Reviewed Patient Risk: Low Procedure Risk: Intermediate Anesthetic Plan Anesthetic Plan: GA Disposition: Standard PACU
[2023-05-22 06:05] LABS: Zinc 96 mcg/dL (60-130)
[2023-05-23 17:13] LABS: Vitamin B1 8 nmol/L (8-30)
[2023-05-25 11:20] LABS: Vitamin A 60 mcg/dL (38-98)
--- NOTE | 2023-05-29 12:43 | MHC.SHP ---
Pre-Procedural Eval Section A Date of Service: 05/29/23 The patient is an INPATIENT: Yes The History & Physical has been completed within 30 days and I have reviewed it.: Yes Section B Chief Complaint: Obesity, unspecified Allergies: Allergies Allergy/AdvReac Type Severity Reaction Status Date / Time fluoxetine [Prozac] Allergy Unknown Unknown Verified 05/21/23 13:39 hydrochlorothiazide AdvReac Intermediate epistaxis Unverified 05/21/23 13:39 Wellbutrin Allergy Unknown Unknown Uncoded 05/21/23 13:39 Plan I have reviewed the history and physical and performed a pertinent physical examination on my patient. No changes have occurred unless specified. Time Spent With Patient Time: Total time managing care of this patient today ____ minutes.
[2023-06-01] VITALS (10 sets, daily range): BP systolic 129–155; BP diastolic 78–98; PULSE 79–98; RESP 16–18; TEMP 36.1–36.6; O2SAT 96–100
--- NOTE | 2023-06-01 08:02 | P.OP_ITS ---
Operative Note Operative Note Date of Service: 06/01/23 Narrative: Preop diagnosis: [Morbid obesity, hypertension, obstructive sleep apnea,GERD] Postop diagnosis: [same] Procedure: [Laparoscopic sleeve gastrectomy, gastropexy, intraoperative upper endoscopy] Surgeon: Matty Marquez MD, FACS, [facility] Assist: [Aisha Carter PA-C] Anesthesia: [GET, Marcaine, 0.5% with epi] Estimated blood loss: [10cc] Specimen: [Portion of stomach with fundus] Intraoperative findings: [NAFLD, enlarged liver, grossly no evidence of a hiatal hernia] Indications: [The patient is a 32-year-old gentleman with a history of obstructive sleep apnea on CPAP, hypertension, asthma, GERD was a cigarette smoker. During workup, he was found to be Helicobacter pylori positive which was successfully treated with confirmation of eradication. He successfully quit all nicotine use and presented to [facility] program at a weight of 258 lb/BMI 36.0, with obstructive sleep apnea. After demonstrating healthy lifestyle changes losing 10% body weight, we reviewed options including continued medical weight loss or surgical options of sleeve gastrectomy and gastric bypass. His operative plan was unfortunately delayed because of maxillofacial trauma. After meeting again to review options, the patient wanted to proceed with a laparoscopic, possibly open sleeve gastrectomy, possible hiatal hernia repair, intraoperative upper endoscopy and possible ventral hernia repair. I reviewed the inherent risks of this procedure which include, but are not limited to: Bleeding that could require another operation or blood transfusion; the inherent risks of transfusion reaction infectious disease from blood transfusions; the risk of staple line leaks that could cause sepsis, multi- system organ failure and ; the risk of mesenteric or deep vein thrombosis of the lower extremities that could cause a fatal pulmonary embolism was reviewed; the risk of GERD that could require conversion to gastric bypass was discussed; the risk of recurrent hiatal hernia, especially in the setting of weight regain was reviewed. The risk of weight regain if maladaptive eating and sedentary behavior continue was discussed. The importance of proper diet and increased activity to augment surgical weight loss and the fact that no operation would result in weight loss of poor dietary decisions and sedentary behavior are resumed were discussed at length and apparently understood. The patient had the option of having a transitional care nurse present and declined this option.] Procedure: [The patient was identified in the preoperative holding area by myself and again in the operating suite 6 by myself and the OR team. Patient was placed supine on the operating table. Safety straps were utilized and a footboard utilized. The patient was induced in general endotracheal anesthesia administered with excellent effect. An appropriate time-out was performed. The patient's abdomen was then widely prepped and draped in the usual manner for surgery using chlorprep. Antibiotics per protocol were administered by Gisele nieves. After infiltrating preemptive local in the skin and subcutaneous tissues in the left upper quadrant, a stab incision was made sharply in the left subcostal abdomen and the Veress needle inserted without incident. An appropriate drop test was performed then a pneumoperitoneum of 15 mmHg was obtained using carbon dioxide. Opening pressures were 6 mmHg. Next, a 5 mm 0 degree scope over a 5 mm Optiview trocar was used to access the abdomen via the epigastric incision in the midline. Once the abdomen was entered, the the trocar obturator was removed and the laparoscope was used to confirm there was no injury from the Veress needle nor trocar insertion injury to the bowel or mesentery, then the scope was switched to a 5 mm 45 degree laparoscope. Next, using preemptive local, additional 5 mm trocars were placed under direct laparoscopic vision on the patient's left abdomen, then right and the 5 mm midline trocar upsized to a 12 mm to accommodate the stapler. The patient was then positioned in reverse Trendelenburg and the liver retractor deployed through the right lateral 5 mm trocar and secured. A 40 [place] ViSiGi bougie was inserted by Anesthesia per os and advanced to the stomach to decompress. It was then withdrawn to the GE junction all under direct laparoscopic vision. Dissection was begun along the greater curvature using the 5 mm [place] LigaSure for hemostasis and continued to the left agustina of the diaphragm. Dissection was then carried towards the pylorus to 3-4 cm from the pylorus and retro gastric adhesions lysed. The gastroesophageal fat pad was carefully mobilized taking care to avoid injury to the esophagus and stomach and dissection carried towards the short gastrics taking care to avoid injury to the spleen and splenic artery. The diaphragmatic hiatus was carefully examined for a hernia, and no apparent hernia was appreciated. Next, the 40 Fr ViSiGi bougie was advanced by anesthesia under direct vision and laparoscopic guidance and positioned in the antrum approximately 3 cm from the pylorus using laparoscopic graspers to serve as a guide for a stapled sleeve gastrectomy. Stapling was performed with [employer] power stapler Endo-BARBY stapler with a purple 45 and 60 loads as needed to keep the sleeve morphology uniform. The bougie served as a guide to maintain the same sleeve caliber to avoid stricture & sleeve distortion. The 10 mm clip industrial machine system technician was used to apply additional clips to the staple line. Care was taken to be sure that the sleeve laid flat and was without stricture. Once the sleeve was complete, the portion of stomach was placed in the lower abdomen to be sent for removal and permanent section. The staple line, gastrocolic omentum, spleen and short gastric areas were all inspected for hemostasis which was found to be good. The ViSiGi bougie used for a leak test by reducing the reverse Trendelenburg and instilling sterile saline. Next, the bougie was withdrawn under laparoscopic vision used to sucti on the esophagus and hypopharynx and then discarded. After inspecting again for hemostasis, a gastropexy was performed using 2-0 Polysorb suture to secure the sleeve gastrectomy to the gastrocolic omentum with intracorporeal suturing technique. Next, I broke scrub perform an on-table upper endoscopy to assess the sleeve and the esophagus and stomach. The patient was returned to neutral position and the Olympus 160 gastroscope was advanced per os taking care to preserve the endotracheal tube. The esophagus was intubated without incident. Minimal air was insufflated and the scope advanced into the newly formed sleeve. The staple line was inspected for hemostasis and the morphology of the sleeve appeared straight with a uniform diameter. Intraoperatively, there was no evidence of staple line leak seen during laparoscopy as air was insufflated via endoscope. The scope was then used to aspirate the air from the sleeve withdrawn and removed. I then rescrubbed to return to the operative field and again inspected the field for hemostasis. After final assessment for hemostasis, the patient was returned to neutral position, a Solo used to withdraw the resected gastric specimen which was sent for permanent section. The fascia of the 12 mm midline was closed using an 0 Polysorb figure of 8 on a suture passer under direct laparoscopic vision. The abdomen was then deflated and all trocars removed. The suture was then tied and the skin closed with 4-0 Monocryl subcuticular sutures. The abdomen was then washed and dried, benzoin and Steri-Strips applied followed by Tegaderms. The patient tolerated the procedure well was then extubated the recover in stable condition. All sponge needle and instrument counts were correct x2. The patient requested that I call his luis Rand at [phone] to apprise her of the operation & typical post-op plan. Her questions seemed to be satisfactorily answered.]
--- NOTE | 2023-06-01 08:02 | MHC.SHP ---
Pre-Procedural Eval Section A Date of Service: 06/01/23 The patient is an INPATIENT: Yes The History & Physical has been completed within 30 days and I have reviewed it.: Yes Section B Chief Complaint: Obesity, unspecified Allergies: Allergies Allergy/AdvReac Type Severity Reaction Status Date / Time fluoxetine [Prozac] Allergy Unknown Unknown Verified 05/21/23 13:39 hydrochlorothiazide AdvReac Intermediate epistaxis Unverified 05/21/23 13:39 Wellbutrin Allergy Unknown Unknown Uncoded 05/21/23 13:39 Plan I have reviewed the history and physical and performed a pertinent physical examination on my patient. No changes have occurred unless specified. Time Spent With Patient Time: Total time managing care of this patient today ____ minutes.
[2023-06-01] MEDS: Aprepitant 32 MG/4.4 ML VIAL IVPUSH (09:41)
[2023-06-01] MEDS: Lactated Ringers 1,000 ML 150 ML IVCONT (09:41)
--- NOTE | 2023-06-01 13:38 | P.DS_ITS ---
DS: Providers Provider Date of Service: 06/02/23 Primary care physician: Maximino Quarles MD DS: Summary Hospital Course Hospital Course: ADMITTING DIAGNOSIS: morbid obesity, HTN, NIMESH DISCHARGE DIAGNOSIS: same, s/p laparoscopic sleeve gastrectomy PAST SURGICAL HISTORY: wisdom teeth PROCEDURE: upper endoscopy, laparoscopic sleeve gastrectomy DISCHARGE SUMMARY: History of Present Illness: The patient is a 32 year-old man with a BMI of 35 kg/m2 and associated co- morbidities as described above. The patient had extensive work-up, lost 25 lbs preoperatively and was electively scheduled for laparoscopic, possible open sleeve gastrectomy and gastropexy. Risks and complications of the surgery were discussed with the patient in advance, particularly the possibility of , pulmonary embolism, anastomotic leak, bleeding, bowel injury, GERD, cardiac, renal or pulmonary complications. The patient understood all the risks and was in agreement with the surgical plan. Hospital Course: The patient underwent an uneventful laparoscopic sleeve gastrectomy with gastropexy on the day of admission. Postoperatively, the patient was transferred to the surgical floor. The patient received IV Acetaminophen and IV dilaudid for pain control. Patient was started on bariatric phase 1 diet POD #0. On postoperative day one, the patient was feeling well without nausea, vomiting, fevers, or tachycardia. The patient had some mild incisional pain and the abdomen was soft. On the morning of postoperative day one, the patient was continued on 1 ounce of water or ice every half hour. During the day, the patient did fairly well, having some incisional pain, but able to ambulate adequately and to tolerate liquids well. Since the patient is doing well, we decided that the patient was ready to be discharged. The patient was given instructions to follow-up with me next week and to call my office for any fever over 101, persistent abdominal pain, nausea, vomiting, GERD, symptoms of DVT such as calf tenderness, or leg swelling, or pulmonary embolism such as chest pain or shortness of breath. The patient was also instructed to drink 40-60 ounces of liquids per day using the 1-ounce cups. The patient had been given prescriptions for Tylenol for pain, Zofran prn for nausea, and pantoprazole and carafate previously. The patient was encouraged to ambulate and use the incentive spirometer. The patient was allowed to shower, but no baths, and encouraged to stay active at home. All of these instructions were given to the patient personally. All questions were answered and the patient understood all instructions, the instructions were also given to the patient in print. Time Attestation Discharge coordination time: Less than 30 minutes Quality: Safe Use of Opioids Does Pt have an Active Cancer Diagnosis on the Problem List?: No Quality: Stroke Does the patient have a stroke diagnosis?: No Physical Exam Vital Signs: Vital Signs: Last Vital Signs Temp 97.0 F 06/01/23 09:46 Pulse 98 06/01/23 09:46 Resp 16 06/01/23 09:46 BP 141/89 H 06/01/23 09:46 Pulse Ox 97 06/01/23 09:46 O2 Del Method Room Air 06/01/23 09:46 BMI result Body Mass Index 33.1 DS: Data Data Completed and Pending Pending studies at discharge: Pending at discharge 06/01/23 13:00 Surgical [PTH] Routine Discharge Plan Discharge Anticipated Discharge Date/Time: 06/02/23 07:29 Patient Disposition: Home, Self-Care Discharge Diagnosis: s/p laparoscopic sleeve gastrectomy Referrals: Po,Maximino Peng MD [Primary Care Provider] - 1 Week Discharge Medications: Continued fluticasone propion-salmeterol [Advair Diskus] 250-50 mcg/dose blister with device 1 inh inhalation BID Qty: 60 1RF lisinopril 5 mg tablet 5 mg PO DAILY Qty: 30 5RF Rx Instructions: please be sure to check your BP daily and do not take your med if top number less than 120 or bottom number less than 70 albuterol sulfate 2.5 mg /3 mL (0.083 %) solution for nebulization 2.5 mg inhalation Q4-6H PRN (Reason: shortness of breath or wheezing) 90 Days Qty: 180 0RF (DME) Aeroneb Go Nebulizer Misc See Rx Instructions .Route Qty: 1 0RF Rx Instructions: As directed albuterol sulfate 90 mcg/actuation aerosol powdr breath activated 1 inh inhalation Q4-6H PRN (Reason: shortness of breath) Qty: 1 0RF pantoprazole 40 mg tablet,delayed release (DR/EC) 40 mg PO QAM 30 Days Qty: 30 2RF Fiber Gummies 2 gram tablet,chewable 2 g PO BID-TID Qty: 60 4RF ondansetron HCl 4 mg tablet 4 mg PO Q6H PRN (Reason: nausea and vomiting) Qty: 20 0RF sucralfate 100 mg/mL suspension 10 ml PO BID 30 Days Qty: 600 2RF acetaminophen 500 mg/15 mL liquid 500 mg PO Q6H PRN (Reason: fever or pain) Qty: 237 2RF Discontinued cholecalciferol (vitamin D3) 50 mcg (2,000 unit) capsule 50 mcg PO DAILY Qty: 60 5RF thiamine HCl (vitamin B1) 50 mg tablet 50 mg PO DAILY Qty: 30 6RF Discharge Orders: Discharge Order (Routine); Ordered 06/02/23 Ordered By: Maurisio Lo Activity on Discharge: No heavy lifting Activity Restrictions/Additional Instructions: 1. Please call your doctor or come back to the emergency room should any new symptoms arise. 2. Activity: You may shower. No tub baths, sex or returning to work until discussed at first post op appointment. No exercise, alcohol, tobacco or illegal drug use. 3. Diet: continue as discussed with bariatric team.. 4. Dressing Change/Wound Care: Do not change or remove surgical dressings unless they are wet or soiled. 5. Call your doctor if: - Your temperature exceeds 101.5 F - You experience excessive pain or swelling - You have an unexpected reaction to medication - You have excessive bleeding - You experience continued vomiting/nausea - Your incision begins to separate - Your incision shows signs of infection such as increased redness, swelling, excessive pain, heat, or drainage (light blood or clear fluid is normal) 6. Continue to use incentive spirometer hourly while awake. Walk in home for 5- 10 minutes every 2 hours during the first week. The patient's medical history has been reviewed and they are considered low risk for post op DVT and therefore DVT prophylaxis is not considered necessary. Travel after surgery was reviewed. The patient has not disclosed any travel plans during the first 30 days after surgery and they have been advised that within the first 30 days after surgery any bus, plane, train or car travel over 2 hours in duration is contraindicated due to the possibility of developing blood clots from immobility. Any travel, needs to include periods of ambulation of 10 minutes in duration every 2 hours. The patient was instructed to discuss any plans for travel during this period with their bariatric surgeon. 7. General instructions: No lifting greater than 5 lbs for 1 week and not more than 20lbs the next 3?weeks. No driving until seen at the office in 5-7 days after surgery. Please walk around your home every hour or two to prevent blood clots from forming in your legs. Please follow the post op diet instructions you are?given by the bariatric team.?If you have any issues or concerns or questions please call the office/answering service to speak with the bariatric provider equipment installation professional.? The Celebrate shakes have all of the bariatric vitamins that you need. If you are drinking other protein shakes, you will need to purchase the Celebrate multivitamins and calcium that are available in the hospital gift shop.??Do not take any new medications without first discussing this with the bariatric team. Please make sure you are consuming at least 40 ounces of fluids per day starting the?day AFTER your discharge from the hospital. Each one ounce cup represents 6 sips. If you drink faster you may experience?bloating,?gas pain, burping, nausea or heartburn. Do not hesitate to contact the office with any questions at . Care Plan Goals: weight loss Health Concerns: obesity Plan of Treatment: as above Assessment: stable s/p laparoscopic sleeve gastrectomy
[2023-06-01 14:08] LABS: Hematocrit 44.6 % (42.0-52.0); Hemoglobin 15.4 g/dl (14.0-18.0)
[2023-06-01 14:47] LABS: Anion Gap 12 (12-20); Blood Urea Nitrogen 10 mg/dL (9-16); Calcium 8.9 mg/dL (8.4-10.2); Carbon Dioxide 24 mmol/L (22-29); Chloride 104 mmol/L (96-108); Estimated Glomerular Filt Rate > 60; Glucose Random 114 mg/dL (60-115); Potassium 4.2 mmol/L (3.3-5.1); Sodium 136 mmol/L (135-145)
--- NOTE | 2023-06-01 15:21 | PHA.MEDREC ---
Pharmacy Consult ? Medication Reconciliation Pharmacy has reviewed the medication reconciliation.
[2023-06-01] MEDS: Lactated Ringers 1,000 ML 100 ML IVCONT (16:11)
[2023-06-01] MEDS: Famotidine/PF 20 MG/2 ML VIAL IVPUSH ×2 (16:12→20:52)
[2023-06-01] MEDS: Acetaminophen 1,000 MG/100 ML PIGGYBACK 16.7 MG IV ×2 (16:12→19:48)
--- NOTE | 2023-06-01 16:16 | P.PNGS_ITS ---
Subjective Subjective Date of Service: 06/01/23 Patient reports: still having pain Interval history: Patient reports he is having some back pain but noted that it is unclear whether it is from surgery or that the bed is just uncomfortable. He reports nausea and notes that he had not been receiving any sips of water. He denies any chest pain, difficulty breathing or shortness of breath. He denies any vomiting. Physical Exam 2 Vital Signs: Vital Signs: Last Vital Signs Temp 97.8 F 06/01/23 15:32 Pulse 82 06/01/23 15:32 Resp 16 06/01/23 15:32 BP 129/82 06/01/23 15:32 Pulse Ox 97 06/01/23 15:32 O2 Del Method Room Air 06/01/23 15:32 BMI result Body Mass Index 33.1 On exam he is anicteric and nontoxic He is having no respiratory distress Appropriate incisional tenderness is present Objective Data Active Medications Albuterol Sulfate (Albuterol Sulfate (0.083%) 2.5 Mg/3 Ml Vial.Neb) 2.5 mg INHALE ONCE PRN PRN Reason: Shortness of Breath/Wheezing Albuterol Sulfate (Albuterol Sulfate (0.083%) 2.5 Mg/3 Ml Vial.Neb) 2.5 mg INHALE ONCE PRN PRN Reason: Wheezing Albuterol Sulfate (Albuterol Sulfate (0.083%) 2.5 Mg/3 Ml Vial.Neb) 2.5 mg INHALE RQ4H PRN PRN Reason: shortness of breath or wheezing Famotidine (Famotidine/Pf 20 Mg/2 Ml Vial) 20 mg IVPUSH BID [place] Last Admin: 06/01/23 16:12 Dose: 20 mg Documented By: SHARON Fentanyl (Fentanyl Citrate/Pf 100 Mcg/2 Ml Vial) 50 mcg IVPUSH Q5M PRN; Protocol PRN Reason: Pain, Severe (Pain Scale 7-10) Fentanyl (Fentanyl Citrate/Pf 100 Mcg/2 Ml Vial) 25 mcg IVPUSH Q5M PRN; Protocol PRN Reason: Pain, Moderate(Pain Scale 4-6) Hydromorphone HCl (Hydromorphone Hcl 0.5 Mg/0.5 Ml Syringe) 0.25 mg IVPUSH Q5M PRN; Protocol PRN Reason: Pain, Severe (Pain Scale 7-10) Hydromorphone HCl (Hydromorphone Hcl 0.5 Mg/0.5 Ml Syringe) 0.25 mg IVPUSH Q4H PRN; Protocol PRN Reason: Pain, Moderate(Pain Scale 4-6) Lactated Ringer's (Lr) 1,000 mls @ 100 mls/hr IVCONT .Q10H [facility] Last Admin: 06/01/23 16:11 Dose: 100 mls/hr Documented By: SHARON Cefazolin Sodium/Dextrose (Ancef) 2 gm in 50 mls @ 100 mls/hr IV POSTOP ONE Stop: 06/01/23 17:59 Acetaminophen (Ofirmev) 1,000 mg in 100 mls @ 16.7 mls/hr IV .Q6H [facility] Last Admin: 06/01/23 16:12 Dose: 16.7 mls/hr Documented By: SHARON Lisinopril (Lisinopril 5 Mg Tablet) 5 mg PO DAILY [facility]; Protocol Metoclopramide HCl (Metoclopramide Hcl 10 Mg/2 Ml Vial) 10 mg IVPUSH Q6H PRN PRN Reason: Nausea Ondansetron HCl (Ondansetron Hcl 4 Mg/2 Ml Vial) 4 mg IVPUSH ONCE PRN PRN Reason: Nausea and Vomiting Ondansetron HCl (Ondansetron Hcl 4 Mg/2 Ml Vial) 4 mg IVPUSH Q8H PRN PRN Reason: Nausea Oxycodone HCl (Oxycodone Hcl Immed Release 5 Mg Tablet) 5 mg PO ONCE PRN PRN Reason: Pain, Severe (Pain Scale 7-10) Sodium Chloride (0.9 % Sodium Chloride Flush 3 Ml Syringe) 3 ml IVFLUSH QSHIFT [facility] Last Admin: 06/01/23 16:13 Dose: Not Given Documented By: SHARON Non-Admin Reason: IV Running Labs 06/01/23 14:02 06/01/23 14:05 Labs: Laboratory Results - last 24 hr 06/01/23 14:05 Anion Gap 12 Estim Creat Clear Calc 150.0 Estimated GFR > 60 Random Glucose 114 Calcium 8.9 D Procedures Date of Service Date of Service: 06/01/23 Progress Note: A&P Assessment and plan (1) S/P laparoscopic sleeve gastrectomy: Status: Acute (2) Osteochondroma of fibula: Status: Acute (3) Obesity: Status: Acute (4) Hypertension: Status: Acute (5) GERD (gastroesophageal reflux disease): Status: Acute (6) Asthma: Status: Acute (7) Obstructive sleep apnea: Status: Acute Plan See orders regarding bariatric phase 1 diet, IV fluid and out of bed/ambulation this evening. Trend labs Time Spent With Patient Time: Total time managing care of this patient today ____ minutes. Quality Stroke Does the patient have a stroke diagnosis?: No VTE Prior VTE?: No VTE Risk Level:: Surgical - moderate VTE Device Contraindication: N/A - Device Ordered VTE Drug Contraindication: Treatment Not Indicated
[2023-06-01] MEDS: lisinopriL 5 MG TABLET PO (17:42)
[2023-06-01] MEDS: ceFAZolin Sodium/Dextrose,Iso 2 GM/50 ML PIGGYBACK IV (17:43)
[2023-06-01] MEDS: Metoclopramide HCl 10 MG/2 ML VIAL IVPUSH (19:42)
[2023-06-02] MEDS: Lactated Ringers 1,000 ML 100 ML IVCONT (01:43)
[2023-06-02] MEDS: Acetaminophen 1,000 MG/100 ML PIGGYBACK 16.7 MG IV (01:43)
[2023-06-02 03:19] VITALS: BP 125/77; PULSE 93; RESP 16; TEMP 37.1; O2SAT 99
[2023-06-02 06:37] LABS: MANUAL DIFF FLAG NO
[2023-06-02 06:44] LABS: Basophils Percent Auto 0.1 % (0-2); Eosinophils Percent Auto 0.1 % (0-4); Hemoglobin 14.6 g/dl (14.0-18.0); Imm Gran Abs Auto 0.05 X10*3/uL (0.00-0.03); Imm Gran Pct Auto 0.4 % (0.0-0.4); Lymphocytes Absolute Auto 1.2 X10*3/uL (1.2-4.9); Lymphocytes Percent Auto 10.1 % (20-40); Mean Corpuscular Hemoglobin 31.4 pg (27.0-33.0); Mean Corpuscular Volume 92.5 fL (80.0-98.0); Mean Platelet Volume 10.7 fL (9.4-12.4); Monocytes Absolute Auto 1.1 X10*3/uL (0.1-1.2); Neutrophils Absolute Auto 9.5 x10*3/uL (2.0-8.3); Neutrophils Percent Auto 80.3 % (45-73); Platelet Count 260 X10*3/uL (160-400); Red Blood Count 4.65 X10*6/uL (4.60-5.80); Red Cell Distribution Width 11.5 % (11.0-16.0); White Blood Count 11.8 X10*3/uL (4.8-10.8)
[2023-06-02 06:59] LABS: Anion Gap 14 (12-20); Blood Urea Nitrogen 6 mg/dL (9-16); Calcium 9.1 mg/dL (8.4-10.2); Carbon Dioxide 22 mmol/L (22-29); Chloride 104 mmol/L (96-108); Creatinine Clr Calc Pharmacy 160.9; Estimated Glomerular Filt Rate > 60; Glucose Random 88 mg/dL (60-115); Potassium 4.1 mmol/L (3.3-5.1); Sodium 136 mmol/L (135-145)
--- NOTE | 2023-06-02 07:00 | P.PNGS_ITS ---
Subjective Subjective Date of Service: 06/02/23 Patient reports: no new complaints, feels better and tolerating liquids well Interval history: Sitting out of bed. He notes he has been walking in the halls and is meeting bariatric phase 1 diet at this time. He denies any chest pain, difficulty breathing, shortness of breath, GERD, regurgitation, nausea or vomiting. Physical Exam 2 Vital Signs: Vital Signs: Last Vital Signs Temp 98.8 F 06/02/23 03:19 Pulse 93 06/02/23 03:19 Resp 16 06/02/23 03:19 BP 125/77 06/02/23 03:19 Pulse Ox 99 06/02/23 03:19 O2 Del Method Room Air 06/02/23 03:19 BMI result Body Mass Index 33.1 On exam, he is anicteric and nontoxic He is having no respiratory distress Abdominal binder is intact and appropriate, minimal tenderness is noted in the abdomen Objective Data Active Medications Albuterol Sulfate (Albuterol Sulfate (0.083%) 2.5 Mg/3 Ml Vial.Neb) 2.5 mg INHALE ONCE PRN PRN Reason: Shortness of Breath/Wheezing Albuterol Sulfate (Albuterol Sulfate (0.083%) 2.5 Mg/3 Ml Vial.Neb) 2.5 mg INHALE ONCE PRN PRN Reason: Wheezing Albuterol Sulfate (Albuterol Sulfate (0.083%) 2.5 Mg/3 Ml Vial.Neb) 2.5 mg INHALE RQ4H PRN PRN Reason: shortness of breath or wheezing Famotidine (Famotidine/Pf 20 Mg/2 Ml Vial) 20 mg IVPUSH BID [place] Last Admin: 06/01/23 20:52 Dose: 20 mg Documented By: MALOU Fentanyl (Fentanyl Citrate/Pf 100 Mcg/2 Ml Vial) 50 mcg IVPUSH Q5M PRN; Protocol PRN Reason: Pain, Severe (Pain Scale 7-10) Fentanyl (Fentanyl Citrate/Pf 100 Mcg/2 Ml Vial) 25 mcg IVPUSH Q5M PRN; Protocol PRN Reason: Pain, Moderate(Pain Scale 4-6) Hydromorphone HCl (Hydromorphone Hcl 0.5 Mg/0.5 Ml Syringe) 0.25 mg IVPUSH Q5M PRN; Protocol PRN Reason: Pain, Severe (Pain Scale 7-10) Hydromorphone HCl (Hydromorphone Hcl 0.5 Mg/0.5 Ml Syringe) 0.25 mg IVPUSH Q4H PRN; Protocol PRN Reason: Pain, Moderate(Pain Scale 4-6) Lactated Ringer's (Lr) 1,000 mls @ 100 mls/hr IVCONT .Q10H [facility] Last Admin: 06/02/23 01:43 Dose: 100 mls/hr Documented By: MALOU Acetaminophen (Ofirmev) 1,000 mg in 100 mls @ 16.7 mls/hr IV .Q6H [facility] Last Admin: 06/02/23 01:43 Dose: 16.7 mls/hr Documented By: MALOU Lisinopril (Lisinopril 5 Mg Tablet) 5 mg PO DAILY [facility]; Protocol Last Admin: 06/01/23 17:42 Dose: 5 mg Documented By: [place] Metoclopramide HCl (Metoclopramide Hcl 10 Mg/2 Ml Vial) 10 mg IVPUSH Q6H PRN PRN Reason: Nausea Last Admin: 06/01/23 19:42 Dose: 10 mg Documented By: MALOU Ondansetron HCl (Ondansetron Hcl 4 Mg/2 Ml Vial) 4 mg IVPUSH ONCE PRN PRN Reason: Nausea and Vomiting Ondansetron HCl (Ondansetron Hcl 4 Mg/2 Ml Vial) 4 mg IVPUSH Q8H PRN PRN Reason: Nausea Oxycodone HCl (Oxycodone Hcl Immed Release 5 Mg Tablet) 5 mg PO ONCE PRN PRN Reason: Pain, Severe (Pain Scale 7-10) Sodium Chloride (0.9 % Sodium Chloride Flush 3 Ml Syringe) 3 ml IVFLUSH QSHIFT [facility] Last Admin: 06/01/23 20:56 Dose: Not Given Documented By: MALOU Non-Admin Reason: IV Running Labs 06/02/23 06:09 06/02/23 06:09 Labs: Laboratory Results - last 24 hr 06/01/23 06/02/23 14:05 06:09 MCV 92.5 MCH 31.4 MCHC 34.0 RDW 11.5 Plt Count 260 MPV 10.7 Immature Gran % (Auto) 0.4 Neut % (Auto) 80.3 H Lymph % (Auto) 10.1 L Fountain % (Auto) 9.0 Eos % (Auto) 0.1 Baso % (Auto) 0.1 Lymph # (Auto) 1.2 Fountain # (Auto) 1.1 Eos # (Auto) 0.0 Baso # (Auto) 0.0 Abs Immat Gran (auto) 0.05 H Absolute Neuts (auto) 9.5 H Absolute Nucleated RBC 0.000 Nucleated RBC % (auto) 0.0 Anion Gap 12 14 Estim Creat Clear Calc 150.0 160.9 Estimated GFR > 60 > 60 Random Glucose 114 88 Calcium 8.9 D 9.1 Procedures Date of Service Date of Service: 06/02/23 Progress Note: A&P Assessment and plan (1) S/P laparoscopic sleeve gastrectomy: Status: Acute (2) Obstructive sleep apnea: Status: Acute (3) Hypertension: Status: Acute (4) GERD (gastroesophageal reflux disease): Status: Acute (5) Asthma: Status: Acute Plan I reviewed the patient's morning labs which demonstrated a stable hemoglobin. Patient is advanced to bariatric phase 2 and we reviewed his postoperative diet. His questions seemed to be satisfactorily answered. He will begin protein shakes today and notes that he has celebrate 4 in 1. PA will confirm that there are no questions from the patient and he should be stable for discharge. Time Spent With Patient Time: Total time managing care of this patient today ____ minutes. Quality Stroke Does the patient have a stroke diagnosis?: No VTE Prior VTE?: No VTE Risk Level:: Surgical - moderate VTE Device Contraindication: N/A - Device Ordered VTE Drug Contraindication: Treatment Not Indicated
[2023-06-02 07:08] VITALS: BP 140/80; PULSE 74; RESP 18; TEMP 36.3; O2SAT 99
[2023-06-02] MEDS: lisinopriL 5 MG TABLET PO (08:41)
--- NOTE | 2023-06-02 08:50 | MHC.CM.PN ---
MD order for home, self-care prior to CM interview. CM acknowledge.
--- NOTE | 2023-06-02 15:59 | HO.POSTANES ---
Post Anesthesia Evaluation Post Anesthesia Evaluation Date of Service: 06/01/23 Vital Signs: Vital Signs Temp Pulse Resp BP Pulse Ox O2 Del Method 06/02/23 07:08 97.3 F 74 18 140/80 H 99 Room Air Anesthesia: General Endotracheal-GETA Mental Status: Awake Pain Control: Satisfactory Nausea/Vomiting: None Hydration: Adequate Anesthesia-Related Issues: No Anes. Related Issues Comments: Patient already discharged. Tried to reach patient by phone but unable. No apparent anesthetic complications
== END 2023-06-02 09:00 | disposition home or self-care (01) | DRG 403 ==
LOC: HO.SSS 13:38 → HO.S3 14:03
PROVIDERS: Admitting Provider Physician Assistant; PCP Internal Medicine; Visit Provider Surgery
PROC: 0DB64Z3 Excision of Stomach, Percutaneous Endoscopic Approach, Vertical (ICD-10-PCS; CPT 43845; principal; 2023-06-01 11:00)
DX: E66.01 Morbid (severe) obesity due to excess calories (principal); G47.33 Obstructive sleep apnea (adult) (pediatric); I10 Essential (primary) hypertension; K21.9 Gastro-esophageal reflux disease without esophagitis; Z68.33 Body mass index [BMI] 33.0-33.9, adult; Z79.4 Long term (current) use of insulin; Z79.51 Long term (current) use of inhaled steroids; Z79.899 Other long term (current) drug therapy
CPT/HCPCS: 36415; 80048; 80053; 80061; 82306; 82607; 82728; 83036; 83540; 83970; 84425; 84443; 84590; 84630; 85014; 85018; 85025; 85610; 85730; 86140; 86850; 86900; 86901; 88304; 88305; 88307; 88342; C1713; C9145; J0131; J0665; J0690; J1100; J1170; J2250; J2405; J2704; J2765; J3010; J7120

== ENCOUNTER 2023-06-09 09:57 | Outpatient (AMB) | payer OTHER, SELFPAY ==
--- NOTE | 2023-06-09 10:18 | MHC.OFFVISWM ---
Intake VS Expanded 06/09/23 10:33 BP 141/87 H Blood Pressure Location Rt brachial Blood Pressure Position Sitting Pulse 92 Pulse Source Pulse Oximeter Temp 97.4 F Temperature Source Temporal Artery Scan Pulse Oximetry 97 Oxygen Delivery Method Room Air Height 5 ft 11 in Weight 218 lb 6.4 oz BMI 30.5 Body Fat % 40.0 Body Fat Mass 87.4 Fat Free Mass 131.0 Visceral Fat Rating 7.0 Body Water % 43.0 Body Water Mass 94.0 Muscle Mass/Score 124.4 Basal Metabolic Rate/Score 1,833 Intake Visit Reasons: (OV) 8 Days PO LSG 06/01/23 *ARRIVE AT 9:30 AM* Allergies fluoxetine [Prozac] Allergy (Unknown, Verified 06/09/23 10:28) Unknown hydrochlorothiazide Adverse Reaction (Intermediate, Verified 06/09/23 10:28) epistaxis Wellbutrin Allergy (Unknown, Uncoded 06/01/23 09:05) Unknown HPI HPI Comments History of Present Illness Details The patient is a 32-year-old gentleman with a history of obstructive sleep apnea on CPAP, hypertension, asthma, GERD was a cigarette smoker who quit several months pre-op. He underwent laparoscopic sleeve gastrectomy 06/01/23 without HHR. He entered the program with a weight of 258 lbs/36.0 BMI & today is 218.4 lb/BMI 30.5 representing a weight loss of 40 lb since reentering the program in February of this year. Meal plan: Celebrate 4 in 1, currently taking 3 shakes, advised to increase to for scoops divided amongst 3 shakes. Written instructions were provided to the patient. Exercise: Walking and using his stationary bike Water: 32 oz. the importance of hydration to prevent dehydration and increased risk for DVT was discussed as well as written down a provided to the patient. [facility] Medical History (Updated 06/01/23 @ 16:18 by Matty Marquez MD, FACS, [facility]) Obstructive sleep apnea Dental trauma Hypertension Asthma GERD (gastroesophageal reflux disease) Back pain Surgical History Hx of laparoscopic partial gastrectomy Hx of wisdom tooth extraction Hx of circumcision Family History Father Myocardial infarction Mother HTN (hypertension) Diabetes Maternal Grandmother Stomach cancer Maternal Grandfather Prostate cancer Maternal Aunt Metastasis to breast Maternal Aunt Breast cancer Brother No problems noted. Brother No problems noted. Brother No problems noted. Brother No problems noted. Sister No problems noted. Daughter No problems noted. Household Members: Family Housing: House Are you a primary healthcare manager to a significant other at home: No Do you presently have visiting nurse or other home services: No Alcohol intake: current Alcohol intake frequency: a few times a week Patient Tobacco Use Status: Former Tobacco user Quit Date: 03/21/2023 Tobacco use type: Cigarette e-Cigarette/Vaping Use: Never Used Second Hand Smoke Exposure: No Current occupational status: employed Cognitive needs: No Hearing needs: No Vision needs: No Review of Systems Const All systems reviewed & are unremarkable except as noted in HPI and below Physical Exam On exam, he is anicteric and nontoxic He is in good spirits He is having no respiratory difficulty Abdomen is soft with no tenderness. His abdominal incisions are healing with no evidence of infection, hernia or hematoma. Steri-Strips are sloughing. Results Reviewed Results Reviewed: Pathology demonstrating normal gastric tissue with no evidence of neoplasia nor Helicobacter was discussed with patient. Assessment & Plan Assessment & Plan (1) S/P laparoscopic sleeve gastrectomy: Comment: May 2023 Code(s): Z98.84 - Bariatric surgery status (2) Obstructive sleep apnea: Comment: 2017 Code(s): G47.33 - Obstructive sleep apnea (adult) (pediatric) (3) Osteochondroma of fibula: Code(s): D16.20 - Benign neoplasm of long bones of unspecified lower limb Plan The patient is congratulated on his 40 lb weight loss since entering the surgical weight loss program. Instructions regarding his meal plan to include 4 scoops of celebrate 4 in 1 divided months 3 shakes were discussed and written down; the importance of hydration and getting over 50 oz of water to prevent dehydration and increased risk for DVT was discussed; plan to increase activity and trend calorie expenditure was reviewed. Patient requested a work note to return on Thursday. No was provided along with activity restrictions, weight restrictions and recommendations regarding half days. Patient noted that he is considering switching jobs and asked if I would be able to provide a note regarding activity restrictions and an end date. Patient should be free of any activity restrictions affective 06/25/2023 and we will provide a note if requested to his new employer. Patient will follow-up with PA in 3 weeks. Coding Level of Care Code Global (28415) Diagnoses S/P laparoscopic sleeve gastrectomy Z98.84 Obstructive sleep apnea G47.33 Osteochondroma of fibula D16.20
[2023-06-09 10:33] VITALS: BP 141/87; PULSE 92; TEMP 36.3; O2SAT 97; BMI 30.5
== END 2023-06-09 10:57 | disposition home or self-care (01) ==
PROVIDERS: PCP Internal Medicine; Visit Provider Surgery
DX: Z98.84 Bariatric surgery status (principal); G47.33 Obstructive sleep apnea (adult) (pediatric); D16.20 Benign neoplasm of long bones of unspecified lower limb
CPT/HCPCS: 99024

== ENCOUNTER → 2023-06-09 09:57 | Outpatient (BNVA) | payer OTHER, SELFPAY | PROVIDERS: PCP Internal Medicine; Visit Provider Surgery ==

== ENCOUNTER 2023-06-11 12:20 | Outpatient (REF) | payer OTHER, SELFPAY ==
--- NOTE | ~2023-06-11 | XR_ITS ---
EXAMINATION: X-RAY RIGHT KNEE LATERAL AND SUNRISE VIEWS X-RAY BILATERAL AP STANDING VIEW CLINICAL INFORMATION: Pain. COMPARISON: None available. TECHNIQUE: 2 views of the right knee. AP standing view of both knees. FINDINGS: Right knee: No evidence of acute fractures or subluxation. No significant degenerative changes. No osseous erosions or chondrocalcinosis. No joint effusion. AP standing view of both knees: No significant joint space narrowing. No erosions or chondrocalcinosis. XR/XR knee standing BI IMPRESSION: No significant abnormality to explain the patient's symptoms.
--- NOTE | ~2023-06-11 | XR_ITS ---
EXAMINATION: X-RAY RIGHT KNEE LATERAL AND SUNRISE VIEWS X-RAY BILATERAL AP STANDING VIEW CLINICAL INFORMATION: Pain. COMPARISON: None available. TECHNIQUE: 2 views of the right knee. AP standing view of both knees. FINDINGS: Right knee: No evidence of acute fractures or subluxation. No significant degenerative changes. No osseous erosions or chondrocalcinosis. No joint effusion. AP standing view of both knees: No significant joint space narrowing. No erosions or chondrocalcinosis. XR/XR knee RT 2V IMPRESSION: No significant abnormality to explain the patient's symptoms.
== END 2023-06-11 12:21 | disposition home or self-care (01) ==
LOC: HO.HOSX 12:20
PROVIDERS: Visit Provider Physician Assistant
DX: M25.561 Pain in right knee (principal); M25.562 Pain in left knee
CPT/HCPCS: 73560; 73565

== ENCOUNTER 2023-08-12 14:09 | Outpatient (AMB) | payer OTHER, SELFPAY ==
--- NOTE | 2023-08-12 14:11 | A.OFFVIS_ITS ---
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 Allergies fluoxetine [Prozac] Allergy (Unknown, Verified 08/12/23 14:19) Unknown hydrochlorothiazide Adverse Reaction (Intermediate, Verified 08/12/23 14:19) epistaxis Wellbutrin Allergy (Unknown, Uncoded 08/12/23 14:19) Unknown Medication List - Last Reconciled 08/12/23 by PETER Beauchamp albuterol sulfate 2.5 mg (3 mL) inhalation Q4-6H PRN 90 days albuterol sulfate 90 mcg/actuation 1 inh inhalation Q4-6H PRN fluticasone propion-salmeterol 250-50 mcg/dose (Advair Diskus) 1 inh inhalation BID inulin (Fiber Gummies) 2 grams PO BID-TID nebulizers (Aeroneb Go Nebulizer) As directed HPI HPI Comments History of Present Illness Details Patient is a pleasant 32-year-old male who returns to the office today in follow-up. He is approximately 2 months status post sleeve gastrectomy performed 06/01/[address] Marquez. Weight today is 208.8 lb with a BMI of 29.1. Initial presentation weight was 258 lb with a BMI of 36. He feels as though things are going much better as he was sick in June with Covid, flu, stomach bug. He has since recovered and has joined a gym and is using treadmill at home. Meal plan: Celebrate 4 in 1 with 2 scoops 8 oz FF milk or almond milk, 8-9 am 12-1 2 spoons of cottage cheese and HB e gg 3-4 pm another shake 6-7 pm meal approx 5 oz chicken (not beverley suring) slightly more veg Drinking 64 oz water Exercise plan: gym 3 x per week, [employer]we[employer]mill [address] 2 days treadmill at home, 300 calories [facility] Medical History (Updated 08/12/23 @ 14:41 by PETER Beauchamp) Osteochondroma of fibula Right knee pain Vitamin B1 deficiency BMI 35.0-35.9,adult Tobacco abuse Hematoma of penis Circumcision complication BMI 31.0-31.9,adult Phimosis of penis Balanitis Adjustment disorder, unspecified H. pylori infection Vitamin D deficiency BMI 32.0-32.9,adult BMI 34.0-34.9,adult Obesity Obstructive sleep apnea Dental trauma Hypertension Asthma GERD (gastroesophageal reflux disease) Back pain Surgical History Hx of laparoscopic partial gastrectomy Hx of wisdom tooth extraction Hx of circumcision Family History Father Myocardial infarction Mother HTN (hypertension) Diabetes Maternal Grandmother Stomach cancer Maternal Grandfather Prostate cancer Maternal Aunt Metastasis to breast Maternal Aunt Breast cancer Brother No problems noted. Brother No problems noted. Brother No problems noted. Brother No problems noted. Sister No problems noted. Daughter No problems noted. Social History Household Members: Family Housing: House Are you a primary residential care facility manager to a significant other at home: No Do you presently have visiting nurse or other home services: No Alcohol intake: current Alcohol intake frequency: a few times a week Comment: aware of trip hazard Patient Tobacco Use Status: Former Tobacco user Quit Date: 03/21/2023 Tobacco use type: Cigarette e-Cigarette/Vaping Use: Never Used Second Hand Smoke Exposure: No Current occupational status: employed Cognitive needs: No Hearing needs: No Vision needs: No Physical Exam Vital Signs: Last Vital Signs Temp 97.2 F 08/12/23 14:17 Pulse 82 08/12/23 14:17 BP 136/81 08/12/23 14:17 Pulse Ox 98 08/12/23 14:17 Oxygen Delivery Method Room Air 08/12/23 14:17 BMI result Body Mass Index 29.1 Const General: healthy appearing and no acute distress Resp Effort & Inspection: normal respiratory effort Auscultation: clear to auscultation bilaterally Cardio Rate: regular rate Rhythm: regular rhythm GI Auscultation: normal bowel sounds Extrem General: Yes normal to inspection Assessment & Plan Assessment & Plan (1) Overweight (BMI 25.0-29.9): Code(s): E66.3 - Overweight Plan: Patient wants to change his meal plan. Previously using premier protein ready to drink. 08:00 to 10:00 premier protein ready to drink Noon, quarter cup cottage cheese and 1 hard boiled egg. 15:00, half cup fruit or apple 19:00 meal 8 forks of protein and 8 forks of vegetables. Recommend increasing exercise to a goal of 2000 calories burn per week, as he is doing 5 days of treadmill, 400 calories per day. On the days that he goes to the gym he may begin to do weight training. Lifting weights prior to doing cardio. Return to clinic 3 weeks. Coding Level of Care Code Global (00466) Diagnoses Overweight (BMI 25.0-29.9) E66.3
[2023-08-12 14:17] VITALS: BP 136/81; PULSE 82; TEMP 36.2; O2SAT 98; BMI 29.1
== END 2023-08-12 14:42 | disposition home or self-care (01) ==
PROVIDERS: PCP Internal Medicine; Visit Provider Physician Assistant Surgical
DX: E66.3 Overweight (principal)
CPT/HCPCS: 99024

== ENCOUNTER → 2023-08-12 14:09 | Outpatient (BNVA) | payer OTHER, SELFPAY | PROVIDERS: PCP Internal Medicine; Visit Provider Physician Assistant Surgical | DX: E66.3 Overweight (principal); Z68.29 Body mass index [BMI] 29.0-29.9, adult; Z98.84 Bariatric surgery status | CPT/HCPCS: 99212 ==

== ENCOUNTER 2024-01-07 10:02 | Outpatient (AMB) | payer OTHER, SELFPAY ==
[2024-01-07 10:03] VITALS: BP 130/90; PULSE 76; O2SAT 97; BMI 28.0
--- NOTE | 2024-01-07 10:03 | A.OFFPC_ITS ---
Vital Signs 01/07/24 10:03 Height 5 ft 11 in Weight 201 lb BMI 28.0 BP 130/90 H Blood Pressure Location Lt brachial Position Sitting Pulse 76 Pulse Source Pulse Oximeter Pulse Oximetry (%) 97 Oxygen Delivery Method Room Air Intake Visit Reasons: back pain request referral to back specialist Intake Note: Patient c/o of lower back pain [id number] with no relief. 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 Allergies fluoxetine [Prozac] Allergy (Unknown, Verified 01/07/24 10:23) Unknown hydrochlorothiazide Adverse Reaction (Intermediate, Verified 01/07/24 10:23) epistaxis Wellbutrin Allergy (Unknown, Uncoded 01/07/24 10:23) Unknown Medication List - Last Reconciled 01/07/24 by Kaylin Deleon PA-C albuterol sulfate 2.5 mg (3 mL) inhalation Q4-6H PRN 90 days albuterol sulfate 90 mcg/actuation 1 inh inhalation Q4-6H PRN fluticasone propion-salmeterol 250-50 mcg/dose (Advair Diskus) 1 inh inhalation BID nebulizers (Aeroneb Go Nebulizer) As directed Tobacco use date assessed: 01/07/24 Dental Screening Dental Screen Date: 01/07/24 Did you have a dental visit in the last 12 months?: Yes Did you have a dental problem in the last 6 months where you did not have access to dental care?: No Was dental information given to patient?: Patient has dentist HPI back pain request referral to back specialist HPI Details 33 year old male with a history of hyper tension, asthma, and GERD last seen April 2023 coming in for acute problem today. In review of the notes the patient has been seeing weight management program s/p sleeve gastrectomy 06/01/23. Back pain has been persistent for about 10 years, history of scoliosis without intervention and poor posture. Worsening over the last 3 weeks and pain has been more of a burning sensation and worse with working where he is primarily on his feet. Denies radiation down the legs or numbness and tingling. Upper and lower back only. Pain improves with extension. Has been using tylenol, ibuprofen and icy hot which temporarily relieves the pain. Patient notices the pain with prolonged standing and does not identify any other provoking activities. Also mentions the pain can sometimes keep him up at night. Denies any trauma to the area. Denies hip or knee pain. Denies involuntary loss of urine or stool. Patient loss significant weight from bariatric surgery but is still complaining of excessive breast tissue which he believes may be contributing to his back pain. Patient recently started smoking again and is looking to quit smoking, interested in the patches. [facility] Medical History Back pain Osteochondroma of fibula Right knee pain Vitamin B1 deficiency BMI 35.0-35.9,adult Tobacco abuse Hematoma of penis Circumcision complication BMI 31.0-31.9,adult Phimosis of penis Balanitis Adjustment disorder, unspecified H. pylori infection Vitamin D deficiency BMI 32.0-32.9,adult BMI 34.0-34.9,adult Obesity Obstructive sleep apnea Dental trauma Hypertension Asthma GERD (gastroesophageal reflux disease) Surgical History Hx of laparoscopic partial gastrectomy Hx of wisdom tooth extraction Hx of circumcision Family History Father Myocardial infarction Mother HTN (hypertension) Diabetes Maternal Grandmother Stomach cancer Maternal Grandfather Prostate cancer Maternal Aunt Metastasis to breast Maternal Aunt Breast cancer Brother No problems noted. Brother No problems noted. Brother No problems noted. Brother No problems noted. Sister No problems noted. Daughter No problems noted. Social History Household Members: Family Housing: House Are you a primary resident care associate to a significant other at home: No Do you presently have visiting nurse or other home services: No Alcohol intake: current Alcohol intake frequency: a few times a week Comment: aware of trip hazard Patient Tobacco Use Status: Current everyday Tobacco user Tobacco use type: Cigarette Cigarettes Per Day: 2 e-Cigarette/Vaping Use: Never Used Second Hand Smoke Exposure: No Current occupational status: employed Cognitive needs: No Hearing needs: No Vision needs: No Questionnaire PHQ-9 Over the last 2 weeks, how often have you been bothered by any of the following problems? 1. Little interest or pleasure in doing things: not at all 2. Feeling down, depressed, or hopeless: not at all 3. Trouble falling or staying asleep, or sleeping too much: not at all 4. Feeling tired or having little energy: not at all 5. Poor appetite or overeating: not at all 6. Feeling bad about yourself - or that you are a failure or have let yourself or your family down: not at all 7. Trouble concentrating on things, such as reading the newspaper or watching television: not at all 8. Moving or speaking so slowly that other people could have noticed. Or the opposite - being so fidgety or restless that you have been moving around a lot more than usual: not at all 9. Thoughts that you would be better off or of hurting yourself in some way: not at all Total score: 0 Depression Screening Interpretation: Negative Depression Screening Done: Yes 88525 - PHQ-9 Billing: Yes Source: Developed by Drs. Darian Khan, Mita Proctor, Vinh Richmond and colleagues, with an educational marge from [employer]. Thrive Questionnaire Date Thrive assessed: 01/07/24 I am a: Patient What is your living situation today?: I have a steady place to live Within the past 12 months, did the food you bought not last and you didn't have the money to get more?: Never true Within the past 12 months, did you worry whether your food would run out before you got money to buy more?: Never true Do you have trouble paying for medicines?: No Do you have trouble getting transportation to medical appointments?: No Do you have trouble paying your heating and electricity bill?: No Do you have trouble taking care of your child, family member or friend?: No Do you have trouble with day-to-day activities such as bathing, preparing meals, shopping, managing finances, etc.?: No Are you currently unemployed and looking for a job?: No Are you interested in more education?: No Please select the resources that you would like help with: None Currently or been in a relationship where the following occur: No concerns reported THRIVE Score: 0 AUDIT C Alcohol Use Questionnaire (AUDIT-C) 1. How often do you have a drink containing alcohol?: 2-4 times a month 2. How many drinks containing alcohol do you have on a typical day when you are drinking?: 1 or 2 3. How often do you have six or more drinks on one occasion?: Never Total Score: 2 Score Reviewed/Action Taken: No GRAEME-7 AMB Questionnaire GRAEME-7 Date GRAEME - 7 assessed: 01/07/24 Feeling nervous, anxious, or on edge: 0 = Not at all Not being able to stop or control worryin = Not at all Worrying too much about different things: 0 = Not at all Trouble relaxin = Not at all Being so restless that it is hard to sit still: 0 = Not at all Becoming easily annoyed or irritable: 0 = Not at all Feeling afraid as if something awful might happen: 0 = Not at all Total GRAEME-7 score (0-4 normal; 5-9 mild; 10-14 moderate; 15-21 severe): 0 Source: Developed by Drs. Darian Khan, Mita Proctor, Vinh Richmond and colleagues, with an educational marge from [employer]. GRAEME-7 Assessment Billing GRAEME-7 Assessment Tool: GRAEME-7 Assessment 41831 Review of Systems Const Denies body aches, Denies chills, Reports difficulty sleeping, Denies fatigue and Denies fever(s) Eyes Reports no additional complaints ENT Reports no additional complaints Card Denies chest pain, Denies chest pain at rest, Denies chest pain with activity and Denies pedal edema Resp Reports no additional complaints GI Reports no additional complaints Reports no additional complaints Musc Details: upper and lower back pain without radiation or neurological symptoms. Occasional back spasms. Denies abnormal gait, Denies deformity, Denies numbness and Denies tingling Skin/Breast Reports system reviewed and no additional complaints, except as documented Neuro Denies abnormal gait, Denies numbness, Denies radicular pain and Denies tingling Psych Reports no additional complaints Endo Denies fatigue Physical exam (Primary Care) Vital Signs: Oxygen Delivery Method Room Air 01/07/24 10:03 Tobacco/Smoking Status: Tobacco use Status Tobacco use date assessed 01/07/24 01/07/24 10:03 Patient Tobacco Use Status Former Tobacco user 01/07/24 10:03 Tobacco use type Cigarette 01/07/24 10:03 e-Cigarette/Vaping Use Never Used 01/07/24 10:03 Are you ready to quit: Yes Tobacco cessation counseling provided: Yes Items discussed: Nicotine replacement (Interested in Patches) Relapse Prevention: discussed dietary, exercise and/or lifestyle changes CPT code: Less than 3 minutes Depression Screening Interpretation: Negative Thrive Assessment: Date of Thrive Assessment Date Thrive assessed 01/07/24 01/07/24 10:03 Currently or been in a relationship where the following occur: No concerns repor radha Const General: cooperative, healthy appearing, comfortable and no acute distress Nutritional Appearance: average body habitus Orientation/consciousness: patient oriented x3 Limitations: no limitations HENMT Head: Yes normal to inspection Ears: hearing grossly normal bilaterally General nose exam: Normal external nose present Eyes General: appearance normal, both eyes and all related structures Neck Other: No pain to palpation or with flexion, extension, rotation or lateral bending. Neck: Yes normal visual inspection, Yes full ROM and Yes no lymphadenopathy Chest Breast/axilla inspection: normal inspection of the breasts (gynecomastia present ) Resp Effort & Inspection: normal respiratory effort and able to speak in complete sentences Cardio Rate: regular rate Rhythm: regular rhythm GI Inspection: Yes normal to inspection General: Yes no CVA tenderness Back/Spine/Pelvis Other: No pain to palpation of the spine, no palpable step offs or deformities. No pain or limitations with flexion, extension, rotation or lateral bending of the spine. No pain to palpation of paravertebral muscles. Back: no CVA tenderness and No back tenderness Thoracic/Lumbar Spine: thoracic and lumbar spine normal to inspection Pelvis: no pain with anterior-posterior compression and no pain with lateral compression Skin General skin exam: no rashes or lesions noted Neuro Other: CN XI intact General: patient oriented x3 Extrem General: Yes normal to inspection Psych Appearance: grossly normal Mental Status: mental status grossly normal Speech and movement: Normal speech and movement present Affect: normal affect Attitude: cooperative Thought process: Normal thought process present Thought content: Normal thought content present Insight: Good insight present (Psych) Judgement: Good judgement present (Psych) Assessment and Plan Assessment & Plan (1) Back pain: Code(s): M54.9 - Dorsalgia, unspecified Qualifiers: Back pain location: back pain in unspecified location Chronicity: chronic Back pain laterality: midline Qualified Code(s): M54.9 - Dorsalgia, unspecified; G89.29 - Other chronic pain Plan: Upper and lower back pain for the past 10 years worsening over the last month. Patient had XR done in 2013 and will order for updated XR of the cervical and lumbar spine. Also refer for physical therapy for evaluation and treatment as the patient is interested in conservative measures. Prescription for muscle relaxer sent to the pharmacy to help with back pain at night. (2) Smoking trying to quit: Code(s): Z72.0 - Tobacco use Plan: Recently started smoking 4 cigarettes a day. Has previously used Nicotine Patch step 2 and is interested in trialing a higher dose to quit smoking. Nicotine patch sent over to pharmacy and counseling provided. (3) Gynecomastia: Code(s): N62 - Hypertrophy of breast Plan: Patient had sleeve gastrectomy 05/2023 and has lost weight but is still having issues with excessive breast tissue. He believes the breast tissue may be causing some of his back pain. Will refer to plastic surgery for consultation f or resection of the tissue. Plan Thank you for allowing me to participate in the care of this patient. I personally spent 35 minutes reviewing, examining and charting on this patient. Orders: Orders PT Evaluation and Treatment Today M54.9 - Dorsalgia, unspecified XR lumbar spine 2-3V Today M54.9 - Dorsalgia, unspecified XR cervical spine 3V Today M54.9 - Dorsalgia, unspecified Referrals Plastic Surgery Referral M54.9 - Dorsalgia, unspecified Medications: New nicotine 1 patch transdermal DAILY 28 ea 0RF cyclobenzaprine 10 mg PO BID PRN 14 tabs 0RF muscle spasm Coding Level of Care Code Est Pt Level 4 (51847) Diagnoses Chronic midline back pain, unspecified back location M54.9; G89.29 Back pain location: back pain in unspecified location Chronicity: chronic Back pain laterality: midline Smoking trying to quit Z72.0 Gynecomastia N62 Additional Codes GRAEME-7 Assessment Billing - GRAEME-7 Assessment Tool: GRAEME-7 Assessment 28415 ([id number])
== END 2024-01-07 10:39 | disposition home or self-care (01) ==
PROVIDERS: PCP Internal Medicine
DX: M54.9 Dorsalgia, unspecified (principal); G89.29 Other chronic pain; Z72.0 Tobacco use; N62 Hypertrophy of breast
CPT/HCPCS: 99214

== ENCOUNTER 2024-03-29 15:31 | Emergency (ER) | payer OTHER, SELFPAY ==
--- NOTE | ~2024-03-29 | CT_ITS ---
EXAMINATION: CT ABDOMEN AND PELVIS WITH CONTRAST CLINICAL INFORMATION: middle abd pain, vomiting, hx gastric sleeve COMPARISON: 01/22/2018. TECHNIQUE: Multidetector volumetric imaging was performed from the superior aspect of the liver through the pubic symphysis following administration of 85 mL Omnipaque 300 intravenous contrast. Sagittal and coronal reformatted images were obtained on the technologist workstation.. This CT examination was performed using dose optimization techniques as appropriate, variously including the following: *Automated exposure control *Adjustment of mA and/or kV according to patient size (this includes techniques or standardized protocols for targeted exams where dose is matched to indication/reason for exam; i.e. extremities or head) *Use of iterative reconstruction technique DLP: 568 mGy-cm FINDINGS: LUNG BASES: Tiny calcified granuloma in the posterior left base. LIVER, GALLBLADDER, AND BILIARY TREE: Mild fatty infiltration of the liver but no focal hepatic lesion or biliary ductal dilatation. The gallbladder is unremarkable with no evidence of radiopaque gallstones, gallbladder wall thickening, or obvious pericholecystic inflammatory changes. PANCREAS: Unremarkable. SPLEEN: Unremarkable. ADRENAL GLANDS: Unremarkable. KIDNEYS AND URETERS: The kidneys are normal in size, shape, and attenuation. No hydronephrosis, hydroureter, or perinephric stranding. No calculi. BLADDER: Unremarkable. GASTROINTESTINAL TRACT: Colon is partially decompressed with no colonic wall thickening or pericolonic inflammatory change. Unremarkable retrocecal appendix. Patient is status post gastric sleeve surgery with no obstructive changes or perigastric inflammatory change noted. ABDOMINAL WALL: No significant hernia is appreciated. LYMPHOVASCULAR STRUCTURES: No lymphadenopathy. The aorta is unremarkable. PELVIC VISCERA: Unremarkable. OSSEOUS STRUCTURES: Unremarkable. CT/CT abdomen pelvis w IV con IMPRESSION: Chronic appearing and postoperative changes as described. Electronically signed by: Maurisio Burton MD 03/29/2024 08:00 PM EDT RP
[2024-03-29 15:37] VITALS: BP 151/99; PULSE 86; RESP 18; TEMP 37.1; O2SAT 100; BMI 27.1
--- NOTE | 2024-03-29 15:40 | ED_ITS ---
HPI - Abdominal Pain General Chief Complaint: Abdominal Pain Stated Complaint: Abd pain Time Seen by Provider: 03/29/24 18:36 History of Present Illness ED Provider: Cipriano HPI narrative: 33 y/o M patient; PMH gastric sleeve 05/2023, HTN, asthma, GERD; presents from home reporting mid-abdominal pain associated with NBNB vomiting and nausea. He denies prior history of similar. He states episodes are intermittent. Some decreased PO intake. Otherwise denies: fever or chills, chest pain, SOB, cough/congestion. No known sick contacts. Related Data Previous Rx's ?Medication ?Instructions ?Recorded albuterol sulfate 2.5 mg/3 mL 2.5 mg (3 mL) inhalation Q4-6H PRN 11/15/21 (0.083 %) solution for nebulization shortness of breath or wheezing 90 days #180 mL nebulizers (Aeroneb Go Nebulizer) #1 ea 11/15/21 albuterol sulfate 90 mcg/actuation 1 inh inhalation Q4-6H PRN 10/13/22 breath activated powder inhaler shortness of breath #1 ea fluticasone 250 mcg-salmeterol 50 1 inh inhalation BID #60 ea 03/04/23 mcg/dose blistr powdr for inhalation (Advair Diskus) cyclobenzaprine 10 mg tablet 10 mg PO BID PRN muscle spasm #14 01/07/24 tabs nicotine 21 mg/24 hr daily 1 patch transdermal DAILY #28 ea 01/07/24 transdermal patch Allergies Allergy/AdvReac Type Severity Reaction Status Date / Time fluoxetine [Prozac] Allergy Unknown Unknown Verified 03/29/24 15:39 hydrochlorothiazide AdvReac Intermediate epistaxis Verified 03/29/24 15:39 Wellbutrin Allergy Unknown Unknown Uncoded 01/07/24 10:23 Review of Systems Review of Systems Yes all other systems are reviewed and are negative Denies Sensory deficit (Neuro) PMFSH Past Medical History Attestation statement: The following information was validated with the patient. Source: old records reviewed Medical History Back pain Osteochondroma of fibula Right knee pain Vitamin B1 deficiency BMI 35.0-35.9,adult Tobacco abuse Hematoma of penis Circumcision complication BMI 31.0-31.9,adult Phimosis of penis Balanitis Adjustment disorder, unspecified H. pylori infection Vitamin D deficiency BMI 32.0-32.9,adult BMI 34.0-34.9,adult Obesity Obstructive sleep apnea Dental trauma Hypertension Asthma GERD (gastroesophageal reflux disease) Surgical History Hx of laparoscopic partial gastrectomy Hx of wisdom tooth extraction Hx of circumcision Family History Family History Father Myocardial infarction Mother HTN (hypertension) Diabetes Maternal Grandmother Stomach cancer Maternal Grandfather Prostate cancer Maternal Aunt Metastasis to breast Maternal Aunt Breast cancer Brother No problems noted. Brother No problems noted. Brother No problems noted. Brother No problems noted. Sister No problems noted. Daughter No problems noted. Social History Social History Household Members: Family Housing: House Are you a primary human services care specialist to a significant other at home: No Do you presently have visiting nurse or other home services: No Alcohol intake: current Alcohol intake frequency: a few times a week Comment: aware of trip hazard Patient Tobacco Use Status: Current everyday Tobacco user Tobacco use type: Cigarette Cigarettes Per Day: 2 Smoked in Last 30 Days: Yes e-Cigarette/Vaping Use: Never Used Second Hand Smoke Exposure: No Use of substances other than those prescribed or required for medical reasons: No Advance Directives: No Advance Directives Information Provided: No Current occupational status: employed Cognitive needs: No Hearing needs: No Vision needs: No Physical Exam ED Vital Signs: Vital Signs - 24 hr 03/29/24 15:37 03/29/24 18:00 Temperature 98.7 F 97.9 F Pulse Rate 86 89 Respiratory Rate 18 18 Blood Pressure 151/99 H 155/102 H Pulse Oximetry 100 100 Oxygen Delivery Method Room Air Room Air BMI result Body Mass Index 27.1 Patient is afebrile and hemodynamically stable. Const General: cooperative Orientation/consciousness: patient oriented x3 HENMT Head: Yes normal to inspection and Yes atraumatic Eyes General: appearance normal, both eyes and all related structures Pupils: Equal, round and reactive pupils present EOM: EOMs intact bilaterally Neck Neck: Yes normal visual inspection, Yes full ROM, Yes supple and No tender Chest Chest palpation & inspection: normal inspection of the chest and normal palpation of entire chest wall Resp Effort & Inspection: normal respiratory effort, able to speak in complete sentences and no respiratory distress Auscultation: clear to auscultation bilaterally Cardio Rate: regular rate Rhythm: regular rhythm Peripheral pulses: Peripheral pulses 2+ throughout GI Inspection: Yes normal to inspection, No Abdominal wall edema and No distended Palpation (GI): Soft to palpation, not firm, nontender, no guarding and not rigid Auscultation: normal bowel sounds Back/Spine/Pelvis Back: No back tenderness Neuro General: patient oriented x3 Cranial nerves: Yes Equal, round and reactive pupils present Motor exam (neuro): 5/5 motor strength present throughout Sensory Exam: No Sensory deficit (Neuro) Course Course Course Narrative: This is a Rapid Medical Examination (RME) performed by Bradley Carr PA-C in triage. Full HPI, ROS, assessment and treatment plan per primary provider in the Main ED. 33 yo male with history of gastric sleeve 06/[address] Marquez, asthma, HTN, GERD who presents to the ER for evaluation of middle and epigastric abdominal pain along with nausea, vomiting, dry heaves for the last few days. Plan: lab workup, TT out to bariatrics - recommending CT scan with IV contrast which has been ordered Reevaluation(s) Reevaluation #1: Patient is afebrile and hemodynamically stable. Reviewed triage work up. Lipase unremarkable. No evidence of transaminitis. 2000: Patient requested to leave against medical advice. He declined a CBC redraw after it clotted. His CT Abdomen/Pelvis was completed but not read by radiology. The following discussion was had with the patient: This patient has elected to leave against medical advice. In my opinion, the patient has capacity to leave AMA. The patient is clinically sober, free from distracting injury, appears to have intact insight and judgment and reason, and in my opinion has capacity to make decisions. I explained to the patient that his symptoms may represent abdominal infection and the patient verbalized understanding of my concerns. I had a discussion with the patient about their workup and results. I informed the patient that the next step in diagnosis and treatment would be a CBC and CT Abdomen/Pelvis read by radiology, and they verbalized understanding of this as well. I explained the risks of leaving without further workup or treatment, which included reasonably foreseeable complications such as , serious injury, permanent disability. I also offered alternatives to departing AMA such as assigning the patient a different provider or an alternate workup pathway. The patient is refusing any further care, specifically CT Abdomen/Pelvis and CBC, and is leaving against medical advice. I am unable to convince the patient to stay. I have asked them to return as soon as possible to complete their evaluation, and also explained that they were welcome to return to the ER for further evaluation whenever they choose. I have asked the patient to follow up with their primary doctor as soon as possible. I have answered all their questions. Patient signed AMA paperwork. Medical Decision Making Lab Data 03/29/24 15:55 03/29/24 15:55 Labs: Lab Results 03/29/24 Range/Units 15:55 Sodium 140 (135-145) mmol/L Potassium 4.1 (3.3-5.1) mmol/L Chloride 104 (96-108) mmol/L Carbon Dioxide 26 (22-29) mmol/L Anion Gap 14 (12-20) BUN 12 (9-16) mg/dL Creatinine 0.89 (0.5-1.4) mg/dL Estim Creat Clear Calc 126.9 Estimated GFR > 60 Random Glucose 96 (60-115) mg/dL Calcium 9.7 D (8.4-10.2) mg/dL Magnesium 1.9 (1.6-2.6) mg/dL Total Bilirubin 1.3 H (0.0-1.0) mg/dL Direct Bilirubin 0.5 (0.0-0.5) mg/dL AST 31 (5-37) U/L ALT 26 (0-40) U/L Alkaline Phosphatase 86 (39-117) U/L Total Protein 7.4 (6.5-8.0) g/dL Albumin 4.3 (3.5-5.0) g/dL Lipase 20 (8-78) U/L Urine Color Yellow Urine Appearance Cloudy Urine pH 8.0 (5.0-9.0) Ur Specific [place] 1.015 (1.005-1.025) Urine Protein Negative (Neg-Trace) mg/dL Urine Glucose (UA) Negative (Negative) mg/dL Urine Ketones Trace (Negative) mg/dL Urine Blood Negative (Negative) Urine Nitrite Negative (Negative) Ur Leukocyte Esterase Small (1+) H (Negative) Urine RBC 3-5 H (0-2) /HPF Urine WBC 0-5 (0-5) /HPF Ur Squamous Epith Cells 0-2 (0-2) /HPF Urine Bacteria None Seen (None Seen) Hyaline Casts 0-2 (0-2) /LPF Medications Administered Discontinued Medications Generic Name Dose Route Start Last Admin Trade Name Freq PRN Reason Stop Dose Admin Iohexol 100 ml 03/29/24 18:33 03/29/24 18:33 Iohexol 350 Mg/Ml 100 Ml Infus..Btl IV 03/29/24 18:34 85 ml ONCE ONE Administration Discharge Plan Discharge Clinical Impression: Abdominal pain Patient Disposition: Home, Self-Care Instructions: Abdominal Pain (ED) Additional Instructions: As we discussed, you were seen today for abdominal pain. Your CT scan was NOT read by a radiologist and your CBC (blood counts) was NOT done. The remainder of your lab work was reassuring. You are electing to leave the hospital against medical advice. Please follow up with your PCP within the next 1 - 2 days to discuss your recent ED visit. Return to the emergency department at any time. Prescriptions: No Action fluticasone propion-salmeterol [Advair Diskus] 250-50 mcg/dose blister with device 1 inh inhalation BID Qty: 60 1RF albuterol sulfate 2.5 mg /3 mL (0.083 %) solution for nebulization 2.5 mg inhalation Q4-6H PRN (Reason: shortness of breath or wheezing) 90 Days Qty: 180 0RF (DME) Aeroneb Go Nebulizer Misc See Rx Instructions .Route Qty: 1 0RF Rx Instructions: As directed albuterol sulfate 90 mcg/actuation aerosol powdr breath activated 1 inh inhalation Q4-6H PRN (Reason: shortness of breath) Qty: 1 0RF cyclobenzaprine 10 mg tablet 10 mg PO BID PRN (Reason: muscle spasm) Qty: 14 0RF nicotine 21 mg/24 hr patch 24 hour 1 patch transdermal DAILY Qty: 28 0RF Print Language: Hungarian
[2024-03-29 16:11] LABS: Appearance Urine Cloudy; Color Urine Yellow; Glucose Urine UA Negative (Negative); Leukocyte Esterase Urine Small (1+) (Negative); Nitrite Urine Negative (Negative); Specific Gravity - Urine 1.015 (1.005-1.025); UMIC TRIGGER UACC YES; Urine Blood Negative (Negative); Urine Ketones Trace mg/dL (Negative); Urine Protein Negative (Neg-Trace)
[2024-03-29 16:15] LABS: Bacteria Urine None Seen (None Seen); Hyaline Casts Urine 0-2 /LPF (0-2); Squamous Epithelial Cell Urine 0-2 /HPF (0-2); UACC Culture Trigger YES; WBC Urine 0-5 /HPF (0-5)
[2024-03-29 16:26] LABS: Alanine Aminotransferase 26 U/L (0-40); Albumin Level 4.3 g/dL (3.5-5.0); Alkaline Phosphatase 86 U/L (39-117); Anion Gap 14 (12-20); Aspartate Amino Transferase 31 U/L (5-37); Bilirubin Direct 0.5 mg/dL (0.0-0.5); Bilirubin Total 1.3 mg/dL (0.0-1.0); Blood Urea Nitrogen 12 mg/dL (9-16); Calcium 9.7 mg/dL (8.4-10.2); Carbon Dioxide 26 mmol/L (22-29); Chloride 104 mmol/L (96-108); Creatinine Clr Calc Pharmacy 126.9; Estimated Glomerular Filt Rate > 60; Glucose Random 96 mg/dL (60-115); Lipase 20 U/L (8-78); Magnesium 1.9 mg/dL (1.6-2.6); Potassium 4.1 mmol/L (3.3-5.1); Sodium 140 mmol/L (135-145); Total Protein 7.4 g/dL (6.5-8.0)
[2024-03-29 18:00] VITALS: BP 155/102; PULSE 89; RESP 18; TEMP 36.6; O2SAT 100
[2024-03-29] MEDS: iohexoL 350 MG/ML 100 ML INFUS..BTL IV (18:33)
[2024-03-29 20:01] VITALS: BP 165/102; PULSE 74; RESP 16; TEMP 36.6; O2SAT 100
--- NOTE | 2024-03-29 20:03 | PC.NURSE ---
pt requesting to leave before results come baclk. WHITESIDE aware
[2024-03-29 20:48] VITALS: BP 165/102; PULSE 74; RESP 16; TEMP 36.6; O2SAT 100
== END 2024-03-29 20:49 | disposition home or self-care (01) ==
PROVIDERS: Physician Assistant; Emergency Provider Emergency Medicine; PCP Internal Medicine
DX: R10.30 Lower abdominal pain, unspecified (principal); R11.2 Nausea with vomiting, unspecified; I10 Essential (primary) hypertension; K21.9 Gastro-esophageal reflux disease without esophagitis; F17.210 Nicotine dependence, cigarettes, uncomplicated; Z79.899 Other long term (current) drug therapy
CPT/HCPCS: 36415; 74177; 80048; 80076; 81001; 83690; 83735; 87086; 99284; Q9967

== ENCOUNTER 2024-04-22 08:34 | Outpatient (AMB) | payer OTHER, SELFPAY ==
[2024-04-22 08:39] VITALS: BP 136/78; PULSE 72; O2SAT 98; BMI 27.5
--- NOTE | 2024-04-22 08:39 | A.OFFPC_ITS ---
Vital Signs 04/22/24 08:39 Height 5 ft 11 in Weight 197 lb BMI 27.5 BP 136/78 Blood Pressure Location Lt brachial Position Sitting Pulse 72 Pulse Source Pulse Oximeter Pulse Oximetry (%) 98 Oxygen Delivery Method Room Air Intake Visit Reasons: annual exam/ Back pain f/u Intake Note: Patient is here today for a physical. Project Manager Required: No Allergies fluoxetine [Prozac] Allergy (Unknown, Verified 04/22/24 08:49) Unknown hydrochlorothiazide Adverse Reaction (Intermediate, Verified 04/22/24 08:49) epistaxis Wellbutrin Allergy (Unknown, Uncoded 04/22/24 08:49) Unknown Medication List - Last Reconciled 04/22/24 by Kaylin Deleon PA-C albuterol sulfate 2.5 mg (3 mL) inhalation Q4-6H PRN 90 days albuterol sulfate 90 mcg/actuation 1 inh inhalation Q4-6H PRN cyclobenzaprine 10 mg PO BID PRN fluticasone propion-salmeterol 250-50 mcg/dose (Advair Diskus) 1 inh inhalation BID nebulizers (Aeroneb Go Nebulizer) As directed nicotine 1 patch transdermal DAILY Tobacco use date assessed: 04/22/24 Dental Screening Dental Screen Date: 04/22/24 Did you have a dental visit in the last 12 months?: Yes Did you have a dental problem in the last 6 months where you did not have access to dental care?: No Was dental information given to patient?: Patient has dentist HPI annual exam/ Back pain f/u HPI Details 33 year old male with a history of hyper tension, asthma, and GERD last seen December 2023 coming in for annual exam. Patient continues to have low back pain and did trial muscle relaxer but felt drowsy in the morning so discontinued. Was originally scheduled for physical therapy which he missed and was rescheduled for June. Also mentions recurrent tonsil stones that are bothersome in cause bad breath. Has an appointment with Plastic surgery 05/26/2024. He will occasionally have difficulty talking where it feels like his throat is closing and will have whisper speak. [facility] Medical History Back pain Osteochondroma of fibula Right knee pain Vitamin B1 deficiency BMI 35.0-35.9,adult Tobacco abuse Hematoma of penis Circumcision complication BMI 31.0-31.9,adult Phimosis of penis Balanitis Adjustment disorder, unspecified H. pylori infection Vitamin D deficiency BMI 32.0-32.9,adult BMI 34.0-34.9,adult Obesity Obstructive sleep apnea Dental trauma Hypertension Asthma GERD (gastroesophageal reflux disease) Surgical History Hx of laparoscopic partial gastrectomy Hx of wisdom tooth extraction Hx of circumcision Family History Father Myocardial infarction Mother HTN (hypertension) Diabetes Maternal Grandmother Stomach cancer Maternal Grandfather Prostate cancer Maternal Aunt Metastasis to breast Maternal Aunt Breast cancer Brother No problems noted. Brother No problems noted. Brother No problems noted. Brother No problems noted. Sister No problems noted. Daughter No problems noted. Social History Household Members: Family Housing: House Are you a primary foster care social worker to a significant other at home: No Do you presently have visiting nurse or other home services: No Alcohol intake: current Alcohol intake frequency: a few times a week Comment: aware of trip hazard Patient Tobacco Use Status: Current everyday Tobacco user Tobacco use type: Cigarette Cigarettes Per Day: 2 e-Cigarette/Vaping Use: Never Used Second Hand Smoke Exposure: No Current occupational status: employed Cognitive needs: No Hearing needs: No Vision needs: No Questionnaire PHQ-9 Over the last 2 weeks, how often have you been bothered by any of the following problems? 1. Little interest or pleasure in doing things: not at all 2. Feeling down, depressed, or hopeless: not at all 3. Trouble falling or staying asleep, or sleeping too much: several days 4. Feeling tired or having little energy: several days 5. Poor appetite or overeating: not at all 6. Feeling bad about yourself - or that you are a failure or have let yourself or your family down: several days 7. Trouble concentrating on things, such as reading the newspaper or watching television: not at all 8. Moving or speaking so slowly that other people could have noticed. Or the opposite - being so fidgety or restless that you have been moving around a lot more than usual: not at all 9. Thoughts that you would be better off or of hurting yourself in some way: not at all Total score: 3 Source: Developed by Drs. Darian Khan, Mita Proctor, Vinh Richmond and colleagues, with an educational marge from [employer]. Thrive Questionnaire Date Thrive assessed: 01/07/24 I am a: Patient What is your living situation today?: I have a steady place to live Within the past 12 months, did the food you bought not last and you didn't have the money to get more?: Never true Within the past 12 months, did you worry whether your food would run out before you got money to buy more?: Never true Do you have trouble paying for medicines?: I choose not to answer this question Do you have trouble getting transportation to medical appointments?: No Do you have trouble paying your heating and electricity bill?: No Do you have trouble taking care of your child, family member or friend?: No Do you have trouble with day-to-day activities such as bathing, preparing meals, shopping, managing finances, etc.?: No Are you currently unemployed and looking for a job?: Yes Are you interested in more education?: No Please select the resources that you would like help with: Housing/Senior Living Currently or been in a relationship where the following occur: No concerns reported THRIVE Score: 0 AUDIT C Alcohol Use Questionnaire (AUDIT-C) 1. How often do you have a drink containing alcohol?: 2-3 times a week 2. How many drinks containing alcohol do you have on a typical day when you are drinking?: 7 to 9 3. How often do you have six or more drinks on one occasion?: Weekly Total Score: 9 GRAEME-7 AMB Questionnaire GRAEME-7 Date GRAEME - 7 assessed: 01/07/24 Feeling nervous, anxious, or on edge: 0 = Not at all Not being able to stop or control worryin = Not at all Worrying too much about different things: 0 = Not at all Trouble relaxin = Not at all Being so restless that it is hard to sit still: 0 = Not at all Becoming easily annoyed or irritable: 0 = Not at all Feeling afraid as if something awful might happen: 0 = Not at all Total GAREME-7 score (0-4 normal; 5-9 mild; 10-14 moderate; 15-21 severe): 0 Source: Developed by Drs. Darian Khan, Mita Proctor, Vinh Richmond and colleagues, with an educational marge from [employer]. Review of Systems Const Denies body aches, Denies fatigue, Denies fever(s), Denies frequent falls, Denies headache(s) and Denies weakness Eyes Denies change in vision and Reports requires corrective lenses ENT Details: Tonsil stones Reports halitosis, Denies dysphagia, Denies dizziness, Denies facial pain, Denies headache(s), Denies nasal congestion and Denies odynophagia Card Denies chest pain, Denies syncope, Denies irregular heart rhythm, Denies leg edema, Denies lightheadedness and Denies dyspnea Resp Denies cough and Denies dyspnea GI Denies constipation, Denies dysphagia, Denies dyspepsia, Denies diarrhea, Denies nausea, Denies odynophagia and Denies vomiting Denies dysuria, Denies urinary frequency, Denies urinary hesitancy and Denies urinary urgency Musc Reports back pain and Denies myalgias Skin/Breast Reports system reviewed and no additional complaints, except as documented Neuro Denies dizziness, Denies syncope, Denies frequent falls, Denies headache(s) and Denies weakness Psych Reports no additional complaints Endo Denies fatigue Physical exam (Primary Care) Vital Signs: Last Vital Signs Pulse 72 04/22/24 08:39 BP 136/78 04/22/24 08:39 Pulse Ox 98 04/22/24 08:39 Oxygen Delivery Method Room Air 04/22/24 08:39 BMI result Body Mass Index 27.5 Tobacco/Smoking Status: Tobacco use Status Tobacco use date assessed 04/22/24 04/22/24 08:47 Patient Tobacco Use Status Current everyday Tobacco 04/22/24 08:40 Tobacco use type Cigarette 04/22/24 08:40 e-Cigarette/Vaping Use Never Used 04/22/24 08:40 PHQ-9: PHQ-9 Score PHQ-9: Total score 3 04/22/24 09:08 Thrive Assessment: Date of Thrive Assessment Date Thrive assessed 01/07/24 04/22/24 08:40 Currently or been in a relationship where the following occur: No concerns reported Const General: cooperative, healthy appearing, comfortable and no acute distress Orientation/consciousness: patient oriented x3 [facility] Head: Yes normocephalic Ears: hearing grossly normal bilaterally, external ears normal, TM's normal bilaterally and EAC's normal General nose exam: Normal external nose present Face and sinus: Yes normal facial exam and Yes sinuses nontender Mouth: Normal oral and palatal mucosa present and tongue normal Throat: Yes posterior oropharynx normal Eyes General: appearance normal, both eyes and all related structures Conjunctivae: conjunctivae normal Pupils: Equal, round and reactive pupils present EOM: EOMs intact bilaterally and No Nystagmus present Neck Neck: Yes normal visual inspection, Yes full ROM and Yes no lymphadenopathy Chest Chest palpation & inspection: normal inspection of the chest Resp Effort & Inspection: normal respiratory effort Auscultation: clear to auscultation bilaterally, no crackles, no rales, no rhonchi, no wheezes and breath sounds present Cardio Rate: regular rate Rhythm: regular rhythm Peripheral pulses: radial pulses present and dorsalis pedis present GI Inspection: Yes normal to inspection and No Abdominal wall edema Palpation (GI): Soft to palpation, not firm and nontender Auscultation: normal bowel sounds Rectal Exam - Male: Yes deferred General: Yes no CVA tenderness Back/Spine/Pelvis Other: Tenderness to palpation of the lumbar spine and paraspinal muscles Back: no CVA tenderness Skin General skin exam: no rashes or lesions noted Neuro General: patient oriented x3 Cranial nerves: Yes Equal, round and reactive pupils present, Yes Midline tongue present, Yes Ability to bilaterally elevate shoulders present and No Nystagmus present Gait exam (Neuro): Normal gait present Extrem General: Yes normal to inspection, Yes full ROM, No no pedal edema and No edema Psych Speech and movement: Normal speech and movement present Affect: normal affect Insight: Good insight present (Psych) Judgement: Good judgement present (Psych) Office Procedures Flu Questionnaire Does the patient have a severe egg allergy?: No Does the patient have severe life threatening allergies?: No Does the patient have a fever or illness today?: No Has the patient ever had Guillain-[place] Syndrome?: No Has the patient ever had any past reaction to a flu shot?: No Immunizations Fluarix Triv [id number] (PF) 45 mcg (15 mcg x 3)/0.5 mL IM syringe Performing Provider: Kaylin Deleon PA-C Performing Location: [facility] [place] [facility] Administered by: IRENE Jaramillo on 04/22/24 09:08 Dose Route Admin Location Dispensed Lot Number Expiration Date NDC Project Director 0.5 mL IM Left Deltoid 0.5 mL [id number] 01/09/25 [id number] Zachary Prell VIS Given Date VIS Provided VIS Publication Date 04/22/24 Single Vaccine 21 Eligibility Eligibility Date Funding Source Not [facility] Eligible 04/22/24 Private Coding Level of Care Code Est Pt Level 3 (04054) Est Pt Prev Care 18-39y(58400) Diagnoses Overweight (BMI 25.0-29.9) E66.3 Hypertension I10 Asthma J45.909 GERD (gastroesophageal reflux disease) K21.9 Smoking trying to quit Z72.0 Chronic midline back pain, unspecified back location M54.9; G89.29 Back pain laterality: midline Back pain location: back pain in unspecified location Chronicity: chronic Annual physical exam Z00.00 Difficulty speaking R47.9 Assessment & Plan Assessment & Plan (1) Overweight (BMI 25.0-29.9): Code(s): E66.3 - Overweight Category: Medical Plan: Encouraged healthy diet and regular exercise. (2) Hypertension: Code(s): I10 - Essential (primary) hypertension Category: Medical Plan: Continue on current blood pressure medication. Avoid salt intake and encourage healthy diet and regular exercise. Blood pressure 136/78 today. (3) Asthma: Code(s): J45.909 - Unspecified asthma, uncomplicated Category: Medical Plan: Asthma currently controlled on present medications. Continue on albuterol inhaler as needed and Advair Diskus. Avoid triggers such as allergies. (4) GERD (gastroesophageal reflux disease): Code(s): K21.9 - Gastro-esophageal reflux disease without esophagitis Category: Medical Plan: Avoid trigger foods such as citrus, tomato products, soda, caffeine, spicy foods and other foods that may be irritating to your stomach. Avoid laying flat 3-4 hours after eating and elevate the head of the bed 30 degrees to prevent acid from moving into the esophagus. Not currently on medical management (5) Smoking trying to quit: Code(s): Z72.0 - Tobacco use Category: Social Hx Plan: Smoking cigarettes and the use of tobacco can be harmful. We discussed the importance of stopping and options to aid in smoking cessation however patient declined at this time (6) Back pain: Code(s): M54.9 - Dorsalgia, unspecified Category: Medical Qualifiers: Back pain laterality: midline Back pain location: back pain in unspecified location Chronicity: chronic Qualified Code(s): M54.9 - Dorsalgia, unspecified; G89.29 - Other chronic pain Plan: Advised to follow up with physical therapy and have x-rays done. (7) Annual physical exam: Code(s): Z00.00 - Encounter for general adult medical examination without abnormal findings Category: Medical Plan: Patient is up-to-date on all recommended routine screenings and vaccinations for his age. Updated blood work ordered and will follow up in 1 year for repeat annual physical or sooner if new problems arise. (8) Difficulty speaking: Code(s): R47.9 - Unspecified speech disturbances Category: Medical Plan: Patient feels sometimes he will have difficulty speaking and will have whisper talk instead of full volume speaking. He feels like his throat closes up occasionally and this is what causes the whisper talk. Will order for CXR and LFTs for further evaluation of asthma. Plan This note was constructed using voice recognition software. While every effort has been made to ensure accuracy and student finance specialist, still areas may have been included sometimes these areas may affect the content or meeting of the given symptoms. Total time spent caring for the patient today was 30 minutes. This includes time spent before the visit reviewing the chart, time spent during the visit, and time spent after the visit and documentation. Orders: Orders Complete Blood Count Auto Diff Today Z00.00 - Encounter for general adult medical examination without abnormal findings Comprehensive Met. Panel Today Z00.00 - Encounter for general adult medical examination without abnormal findings TSH reflex Free T4 Today Z00.00 - Encounter for general adult medical examination without abnormal findings Lipid Panel Today Z00.00 - Encounter for general adult medical examination without abnormal findings PFT pulmonary function test Today J45.909 - Unspecified asthma, uncomplicated XR chest 2V Today J45.909 - Unspecified asthma, uncomplicated Influenza [id number] Immunization Today Z23 - Encounter for immunization Free T4 (Free Thyroxine) Today Z00.00 - Encounter for general adult medical examination without abnormal findings Vitamin B12 and Folate Today Z00.00 - Encounter for general adult medical examination without abnormal findings Vitamin D 25-OH (D2 and D3) Today Z00.00 - Encounter for general adult medical examination without abnormal findings Referrals Ear/Nose/Throat Referral J35.8 - Other chronic diseases of tonsils and adenoids Medications: New lidocaine 5% leave on most painful area for up to 12 hrs 1 patch topical DAILY 30 ea 0RF Refilled fluticasone propion-salmeterol 250-50 mcg/dose (Advair Diskus) 1 inh inhalation BID 60 ea 1RF J45.909 - Unspecified asthma, uncomplicated albuterol sulfate 90 mcg/actuation 1 inh inhalation Q4-6H PRN 1 ea 0RF shortness of breath J45.909 - Unspecified asthma, uncomplicated
== END 2024-04-22 09:09 | disposition home or self-care (01) ==
PROVIDERS: PCP Internal Medicine
DX: Z00.00 Encounter for general adult medical examination without abnormal findings (principal); I10 Essential (primary) hypertension; E66.811 Obesity, class 1; Z68.27 Body mass index [BMI] 27.0-27.9, adult; J45.909 Unspecified asthma, uncomplicated; K21.9 Gastro-esophageal reflux disease without esophagitis; Z72.0 Tobacco use; M54.9 Dorsalgia, unspecified; G89.29 Other chronic pain; R47.9 Unspecified speech disturbances

== ENCOUNTER → 2024-04-22 08:34 | Outpatient (BNVA) | payer OTHER, SELFPAY | PROVIDERS: PCP Internal Medicine | DX: Z00.01 Encounter for general adult medical examination with abnormal findings (principal); Z23 Encounter for immunization; E66.3 Overweight; I10 Essential (primary) hypertension; J45.909 Unspecified asthma, uncomplicated; K21.9 Gastro-esophageal reflux disease without esophagitis; M54.9 Dorsalgia, unspecified; G89.29 Other chronic pain; R74.8 Abnormal levels of other serum enzymes; Z72.0 Tobacco use | CPT/HCPCS: 90471; 90656; 96127; 99212; 99395 ==

== ENCOUNTER 2024-08-03 13:59 | Outpatient (AMB) | payer OTHER, SELFPAY ==
--- NOTE | 2024-08-03 14:03 | A.OFFPC_ITS ---
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 Accompanied by: Self / Same As Patient Allergies fluoxetine [Prozac] Allergy (Unknown, Verified 08/03/24 14:04) Unknown lisinopril Adverse Reaction (Intermediate, Verified 08/03/24 14:24) epistaxis Wellbutrin Allergy (Unknown, Uncoded 08/03/24 14:04) Unknown Medication List - Last Reconciled 08/03/24 by Kaylin Deleon PA-C albuterol sulfate 2.5 mg (3 mL) inhalation Q4-6H PRN 90 days albuterol sulfate 90 mcg/actuation 1 inh inhalation Q4-6H PRN cyclobenzaprine 10 mg PO BID PRN fluticasone propion-salmeterol 250-50 mcg/dose (Advair Diskus) 1 inh inhalation BID lidocaine 5% 1 patch topical DAILY nebulizers (Aeroneb Go Nebulizer) As directed nicotine 1 patch transdermal DAILY triamcinolone acetonide 0.5% 1 appl topical DAILY Tobacco use date assessed: 08/03/24 Dental Screening Dental Screen Date: 08/03/24 Did you have a dental visit in the last 12 months?: Yes Did you have a dental problem in the last 6 months where you did not have access to dental care?: No Was dental information given to patient?: Patient has dentist HPI [facility] 07/31 brain bleed HPI Details 33-year-old male with past medical histo ry of hypertension, asthma, GERD last seen 04/2024 coming in for hospital discharge follow up.?In review of the notes, patient was seen in [facility] ED with sudden onset headache while lifting with some mild blurry vision head CT shows concern for subarachnoid hemorrhage CT was repeated in 6 hours showing incidental frontal ethmoid opacification.? Recommending transfer to neuro ICU. Patient was seen by [facility] surgery for gynecomastia recommending bilateral mastectomy and will schedule surgery. Patient tells us today he is still awaiting the mastectomy to be scheduled. He does mentioned he stopped taking his lisinopril over a year ago however has had normal blood pressures while in the office after discontinuing this medication. He does monitor his blood pressures at home and they are variable but he is unsure if he is taking the blood pressure appropriately. He continues to have very mild headache after his ER visit that he describes as on the temples and behind the eyes and throbbing in nature. Headache is mild compared to the initial episode. Also mentions having a dry scaly patch of skin on the right hand that has been resistant to his [id number] creams. [facility] Medical History Back pain Osteochondroma of fibula Right knee pain Vitamin B1 deficiency BMI 35.0-35.9,adult Tobacco abuse Hematoma of penis Circumcision complication BMI 31.0-31.9,adult Phimosis of penis Balanitis Adjustment disorder, unspecified H. pylori infection Vitamin D deficiency BMI 32.0-32.9,adult BMI 34.0-34.9,adult Obesity Obstructive sleep apnea Dental trauma Hypertension Asthma GERD (gastroesophageal reflux disease) Surgical History Hx of laparoscopic partial gastrectomy Hx of wisdom tooth extraction Hx of circumcision Family History Father Myocardial infarction Mother HTN (hypertension) Diabetes Maternal Grandmother Stomach cancer Maternal Grandfather Prostate cancer Maternal Aunt Metastasis to breast Maternal Aunt Breast cancer Brother No problems noted. Brother No problems noted. Brother No problems noted. Brother No problems noted. Sister No problems noted. Daughter No problems noted. Social History Household Members: Family Housing: House Are you a primary residential child care counselor to a significant other at home: No Do you presently have visiting nurse or other home services: No Alcohol intake: current Alcohol intake frequency: a few times a week Comment: aware of trip hazard Patient Tobacco Use Status: Current everyday Tobacco user Tobacco use type: Cigarette Cigarettes Per Day: 2 e-Cigarette/Vaping Use: Never Used Second Hand Smoke Exposure: No Current occupational status: employed Cognitive needs: No Hearing needs: No Vision needs: No Questionnaire PHQ-9 Over the last 2 weeks, how often have you been bothered by any of the following problems? 1. Little interest or pleasure in doing things: not at all 2. Feeling down, depressed, or hopeless: not at all 3. Trouble falling or staying asleep, or sleeping too much: not at all 4. Feeling tired or having little energy: not at all 5. Poor appetite or overeating: not at all 6. Feeling bad about yourself - or that you are a failure or have let yourself or your family down: not at all 7. Trouble concentrating on things, such as reading the newspaper or watching television: not at all 8. Moving or speaking so slowly that other people could have noticed. Or the opposite - being so fidgety or restless that you have been moving around a lot more than usual: not at all 9. Thoughts that you would be better off or of hurting yourself in some way : not at all Total score: 0 Depression Screening Interpretation: Negative Depression Screening Done: Yes 75225 - PHQ-9 Billing: Yes Source: Developed by Drs. Darian Khan, Mita Proctor, Vinh Richmond and colleagues, with an educational marge from [employer]. Thrive Questionnaire Date Thrive assessed: 08/03/24 I am a: Patient What is your living situation today?: I have a steady place to live Within the past 12 months, did the food you bought not last and you didn't have the money to get more?: Never true Within the past 12 months, did you worry whether your food would run out before you got money to buy more?: Never true Do you have trouble paying for medicines?: No Do you have trouble getting transportation to medical appointments?: No Do you have trouble paying your heating and electricity bill?: No Do you have trouble taking care of your child, family member or friend?: No Do you have trouble with day-to-day activities such as bathing, preparing meals, shopping, managing finances, etc.?: No Are you currently unemployed and looking for a job?: No Are you interested in more education?: No Please select the resources that you would like help with: None Currently or been in a relationship where the following occur: No concerns reported THRIVE Score: 0 AUDIT C Alcohol Use Questionnaire (AUDIT-C) 1. How often do you have a drink containing alcohol?: 2-3 times a week 2. How many drinks containing alcohol do you have on a typical day when you are drinking?: 7 to 9 3. How often do you have six or more drinks on one occasion?: Weekly Total Score: 9 GRAEME-7 AMB Questionnaire GRAEME-7 Date GRAEME - 7 assessed: 08/03/24 Feeling nervous, anxious, or on edge: 0 = Not at all Not being able to stop or control worryin = Not at all Worrying too much about different things: 0 = Not at all Trouble relaxin = Not at all Being so restless that it is hard to sit still: 0 = Not at all Becoming easily annoyed or irritable: 0 = Not at all Feeling afraid as if something awful might happen: 0 = Not at all Total GRAEME-7 score (0-4 normal; 5-9 mild; 10-14 moderate; 15-21 severe): 0 Source: Developed by Drs. Darian Khan, Mita Proctor, Vinh Richmond and colleagues, with an educational marge from [employer]. GRAEME-7 Assessment Billing GRAEME-7 Assessment Tool: GRAEME-7 Assessment 51050 Review of Systems Const Denies body aches, Denies chills, Denies fever(s), Reports headache(s) and Denies poor appetite Eyes Reports no additional complaints ENT Denies dizziness and Reports headache(s) Card Denies chest pain, Denies syncope, Denies edema, Denies irregular heart rhythm, Denies lightheadedness and Denies dyspnea Resp Denies cough and Denies dyspnea GI Reports no additional complaints Reports no additional complaints Musc Reports no additional complaints and Denies abnormal gait Skin/Breast Reports system reviewed and no additional complaints, except as documented Neuro Denies abnormal gait, Denies dizziness, Denies syncope and Reports headache(s) Psych Reports no additional complaints Physical exam (Primary Care) Vital Signs: Last Vital Signs Temp 97.1 F 08/03/24 14:07 Pulse 75 08/03/24 14:07 BP 124/88 08/03/24 14:07 Pulse Ox 98 08/03/24 14:07 Oxygen Delivery Method Room Air 08/03/24 14:07 BMI result Body Mass Index 27.5 Tobacco/Smoking Status: Tobacco use Status Tobacco use date assessed 08/03/24 08/03/24 14:04 Patient Tobacco Use Status Current everyday Tobacco 08/03/24 14:04 Tobacco use type Cigarette 08/03/24 14:04 e-Cigarette/Vaping Use Never Used 08/03/24 14:04 PHQ-9: PHQ-9 Score PHQ-9: Total score 0 08/03/24 14:52 Depression Screening Interpretation: Negative Thrive Assessment: Date of Thrive Assessment Date Thrive assessed 08/03/24 08/03/24 14:04 Currently or been in a relationship where the following occur: No concerns reported Const General: cooperative, healthy appearing, comfortable and no acute distress Orientation/consciousness: patient oriented x3 HENMT Head: Yes normocephalic Ears: hearing grossly normal bilaterally General nose exam: Normal external nose present Eyes General: appearance normal, both eyes and all related structures Conjunctivae: conjunctivae normal Pupils: Equal, round and reactive pupils present EOM: EOMs intact bilaterally Direct Ophthalmoscopy: normal light reflex Neck Neck: Yes full ROM and Yes no lymphadenopathy Resp Effort & Inspection: normal respiratory effort Auscultation: clear to auscultation bilaterally, no crackles, no rales, no rhonchi and no wheezes Cardio Rate: regular rate Rhythm: regular rhythm Skin General skin exam: no rashes or lesions noted Neuro General: patient oriented x3 Cranial nerves: Yes Equal, round and reactive pupils present Gait exam (Neuro): Normal gait present Extrem General: Yes normal to inspection, Yes full ROM and No edema Psych Affect: normal affect Attitude: cooperative Insight: Good insight present (Psych) Judgement: Good judgement present (Psych) Coding Level of Care Code Est Pt Level 4 (74714) Diagnoses Hospital discharge follow-up Z09 Dermatitis L30.9 Gynecomastia N62 Hypertension I10 Sinus mucosal thickening J34.89 Additional Codes GRAEME-7 Assessment Billing - GRAEME-7 Assessment Tool: GRAEME-7 Assessment 29451 ([id number]) PHQ-9 - 88334 - PHQ-9 Billing: Yes ([id number]) Assessment & Plan Assessment & Plan (1) Hospital discharge follow-up: Code(s): Z09 - Encounter for follow-up examination after completed treatment for conditions other than malignant neoplasm Category: Medical Plan: Patient was seen in [facility] after a headache while lifting. Head CT initially concerning for subarachnoid hemorrhage however ruled out with CTA and repeat CT scan. Patient does continue to have mild headache in the temporal region. Advised patient to reach out to the eye doctor for evaluation. At this point patient is managing the headache well. Reviewed red flag symptoms and when to present for re-evaluation. If headache becomes persistent or wor sens to reach out to the office. (2) Dermatitis: Code(s): L30.9 - Dermatitis, unspecified Category: Medical Plan: Patient having area of dry scaly skin on dorsum of right hand we will give steroid cream not to be used more than 2 weeks. At patient request referral was also placed to Dermatology. (3) Gynecomastia: Code(s): N62 - Hypertrophy of breast Category: Medical Plan: Continue to follow with [facility] surgery and working on scheduling mastectomy. (4) Hypertension: Code(s): I10 - Essential (primary) hypertension Category: Medical Plan: Blood pressure in the office today 124/80 and 134/88 when retaken. Blood pressures have been normal while in the office however we will schedule a 1 week follow up with the nurse navigators and advised patient to bring his blood pressure cuff to that appointment to ensure accuracy. Have patient monitor blood pressure at home and follow up at next visit. If blood pressure is pers istently over 140/90 reach out to the office as he may need to restart on blood pressure management. Consider low-dose losartan or amlodipine. (5) Sinus mucosal thickening: Code(s): J34.89 - Other specified disorders of nose and nasal sinuses Category: Medical Plan: Patient found to have sinus mucosal thickening in the ethmoid and frontal sinuses. Patient denying any sinus congestion, rhinorrhea, fevers or sinus pressure at this time. Advised to use [id number] antihistamine and saline rinses. Discussed with patient red flag symptoms of sinusitis and when to reach out to the office. If patient does develop symptoms of sinusitis we will plan to treat with antibiotic. Plan This note was constructed using voice recognition software. While every effort has been made to ensure accuracy and master fire control technician, still areas may have been included sometimes these areas may affect the content or meeting of the given symptoms. Total time spent caring for the patient today was 20 minutes. This includes time spent before the visit reviewing the chart, time spent during the visit, and time spent after the visit and documentation. Orders: Referrals Dermatology Referral L30.9 - Dermatitis, unspecified Medications: New triamcinolone acetonide 0.5% 1 appl topical DAILY 15 grams 0RF triamcinolone acetonide 0.5% 1 appl topical DAILY 15 grams 0RF
[2024-08-03 14:07] VITALS: BP 124/88; PULSE 75; TEMP 36.2; O2SAT 98; BMI 27.5
== END 2024-08-03 14:52 | disposition home or self-care (01) ==
PROVIDERS: PCP Internal Medicine
DX: Z09 Encounter for follow-up examination after completed treatment for conditions other than malignant neoplasm (principal); L30.9 Dermatitis, unspecified; N62 Hypertrophy of breast; I10 Essential (primary) hypertension; J34.89 Other specified disorders of nose and nasal sinuses

== ENCOUNTER → 2024-08-03 13:59 | Outpatient (BNVA) | payer OTHER, SELFPAY | PROVIDERS: PCP Internal Medicine | DX: Z09 Encounter for follow-up examination after completed treatment for conditions other than malignant neoplasm (principal); L30.9 Dermatitis, unspecified; N62 Hypertrophy of breast; I10 Essential (primary) hypertension; J34.89 Other specified disorders of nose and nasal sinuses | CPT/HCPCS: 96127; 99212 ==

== ENCOUNTER 2024-08-22 10:30 | Outpatient (AMB) | payer OTHER, SELFPAY ==
--- NOTE | 2024-08-22 10:33 | MHC.OFFVISWM ---
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 Allergies fluoxetine [Prozac] Allergy (Unknown, Verified 08/03/24 14:04) Unknown lisinopril Adverse Reaction (Intermediate, Verified 08/03/24 14:24) epistaxis Wellbutrin Allergy (Unknown, Uncoded 08/03/24 14:04) Unknown Medication List - Last Reconciled 08/22/24 by PETER Beauchamp albuterol sulfate 2.5 mg (3 mL) inhalation Q4-6H PRN 90 days albuterol sulfate 90 mcg/actuation 1 inh inhalation Q4-6H PRN cyclobenzaprine 10 mg PO BID PRN fluticasone propion-salmeterol 250-50 mcg/dose (Advair Diskus) 1 inh inhalation BID lidocaine 5% 1 patch topical DAILY nebulizers (Aeroneb Go Nebulizer) As directed nicotine 1 patch transdermal DAILY triamcinolone acetonide 0.5% 1 appl topical DAILY HPI Comments Details: Patient is a pleasant 33-year-old male who returns to the office today in follow-up. He is approximately 1 year 3 months status post sleeve gastrectomy performed 06/01/[address] Marquez. Weight today is 197 lb with a BMI of 27.5. Initial presentation weight was 258 lb with a BMI of 36. He feels as though things are going well. He notes that he knows when to stop eating but he is eating bad choices. lots of pork, rice, fried chicken. He has not been following a meal plan but started with with Premier protein RTD today. Taking bariatric mvi daily Meal plan: Celebrate 4 in 1 with 2 scoops 8 oz FF milk or almond milk, 8-9 am 12-1 2 spoons of cottage cheese and HB egg 3-4 pm another shake 6-7 pm meal approx 5 oz chicken (not measuring) slightly more veg Drinking 64 oz water Exercise plan: nothing in the last 2-3 months gym 3 x per week, treadmill 300 waylon 2 days treadmill at home, 300 calories Any post op complications: none NIMESH: resolved DM: never HTN: resolved Hyperlipidemia: never GERD:?0-5 scale ??0 = no symptoms ??1 = symptoms noticeable but not bothersome 2 =symptoms bothersome but not daily ? 3 = symptoms bothersome and daily 4 = symptoms affect daily activities 5 = symptoms are incapacitating, unable to do daily activities ? How bad is the heartburn: 0 ? Heartburn while lying down: 0 ? Heartburn when standing up: 0 ? Heartburn after meals: 0 ? Does heartburn change your diet: 0 ? Does heartburn wake you up from sleep: 0 ? Do you have difficulty swallowin ? Do you have pain with swallowin ? If you take medicine for your reflux, does this affect your daily life: 0 Satisfaction with present condition - satisfied or not satisfied: satisfied [facility] Medical History Back pain Osteochondroma of fibula Right knee pain Vitamin B1 deficiency BMI 35.0-35.9,adult Tobacco abuse Hematoma of penis Circumcision complication BMI 31.0-31.9,adult Phimosis of penis Balanitis Adjustment disorder, unspecified H. pylori infection Vitamin D deficiency BMI 32.0-32.9,adult BMI 34.0-34.9,adult Obesity Obstructive sleep apnea Dental trauma Hypertension Asthma GERD (gastroesophageal reflux disease) Surgical History Hx of laparoscopic partial gastrectomy Hx of wisdom tooth extraction Hx of circumcision Family History Father Myocardial infarction Mother HTN (hypertension) Diabetes Maternal Grandmother Stomach cancer Maternal Grandfather Prostate cancer Maternal Aunt Metastasis to breast Maternal Aunt Breast cancer Brother No problems noted. Brother No problems noted. Brother No problems noted. Brother No problems noted. Sister No problems noted. Daughter No problems noted. Social History Household Members: Family Housing: House Are you a primary childcare worker to a significant other at home: No Do you presently have visiting nurse or other home services: No Alcohol intake: current Alcohol intake frequency: a few times a week Comment: aware of trip hazard Patient Tobacco Use Status: Current everyday Tobacco user Tobacco use type: Cigarette Cigarettes Per Day: 2 e-Cigarette/Vaping Use: Never Used Second Hand Smoke Exposure: No Current occupational status: employed Cognitive needs: No Hearing needs: No Vision needs: No Telehealth Telehealth Telehealth Platform: Telephone Location of provider rendering services: practice address Location of patient: address on file Patient Identification confirmed using: Name, : Yes Telehealth method: voice only Patient verbally consented to treatment: Yes Patient verbally consented to billing insurance company: Yes Patient informed of any privacy concerns related to visit: Yes Minutes spent on Phone/Video with Pt.: 15 Assessment & Plan Assessment & Plan (1) S/P laparoscopic sleeve gastrectomy: Comment: May 2023 Code(s): Z98.84 - Bariatric surgery status Category: Surgical Plan: Check yearly postop labs Change meal plan: Premier protein ready to drink shake Half premier protein ready to drink shake or protein bar Meal with 7 forks of protein and 7 of vegetables Encouraged to return to the gym as well as use treadmill at home for a goal of burning 300 calories per day. Return to clinic 1 month. Encouraged to text weekly with weights and with any questions or concerns Orders: Orders Complete Blood Count Auto Diff Today I10 - Essential (primary) hypertension, Z - Bariatric surgery status IRON PROFILE Today I10 - Essential (primary) hypertension, Z - Bariatric surgery status Ferritin Today I10 - Essential (primary) hypertension, Z - Bariatric surgery status Vitamin D 25-OH Total Today I10 - Essential (primary) hypertension, Z - Bariatric surgery status Insulin Today I10 - Essential (primary) hypertension, Z - Bariatric surgery status Hemoglobin A1c Today I10 - Essential (primary) hypertension, Z - Bariatric surgery status Lipid Panel Today I10 - Essential (primary) hypertension, Z - Bariatric surgery status Comprehensive Met. Panel Today I10 - Essential (primary) hypertension, Z84 - Bariatric surgery status Vitamin B12 and Folate Today I10 - Essential (primary) hypertension, Z84 - Bariatric surgery status Zinc Today I10 - Essential (primary) hypertension, Z84 - Bariatric surgery status C Reactive Protein Today I10 - Essential (primary) hypertension, Z84 - Bariatric surgery status Vitamin B1 Today I10 - Essential (primary) hypertension, Z - Bariatric surgery status Vitamin A Today I10 - Essential (primary) hypertension, Z - Bariatric surgery status TSH reflex Free T4 Today I10 - Essential (primary) hypertension, Z - Bariatric surgery status
[2024-08-22 10:34] VITALS: BMI 27.5
== END 2024-08-22 10:57 | disposition home or self-care (01) ==
LOC: HO.HBS 10:41
PROVIDERS: PCP Internal Medicine; Visit Provider Physician Assistant Surgical
DX: E66.3 Overweight (principal); Z68.27 Body mass index [BMI] 27.0-27.9, adult; Z90.3 Acquired absence of stomach [part of]; Z98.84 Bariatric surgery status
CPT/HCPCS: 99214

== ENCOUNTER 2024-09-20 08:59 | Outpatient (REF) | payer OTHER, SELFPAY ==
[2024-09-20 09:27] LABS: MANUAL DIFF FLAG NO
[2024-09-20 09:44] LABS: Basophils Percent Auto 0.6 % (0-2); Eosinophils Absolute Auto 0.1 X10*3/uL (0.0-0.4); Eosinophils Percent Auto 1.8 % (0-4); Hematocrit 47.6 % (42.0-52.0); Hemoglobin 16.5 g/dl (14.0-18.0); Imm Gran Abs Auto 0.04 X10*3/uL (0.00-0.03); Imm Gran Pct Auto 0.6 % (0.0-0.4); Lymphocytes Absolute Auto 2.3 X10*3/uL (1.2-4.9); Lymphocytes Percent Auto 34.4 % (20-40); Mean Corpuscular HGB Conc 34.7 g/dl (31.0-36.0); Mean Corpuscular Hemoglobin 32.8 pg (27.0-33.0); Mean Corpuscular Volume 94.6 fL (80.0-98.0); Mean Platelet Volume 9.9 fL (9.4-12.4); Monocytes Absolute Auto 0.6 X10*3/uL (0.1-1.2); Monocytes Percent Auto 8.4 % (2-11); Neutrophils Absolute Auto 3.7 x10*3/uL (2.0-8.3); Neutrophils Percent Auto 54.2 % (45-73); Platelet Count 254 X10*3/uL (160-400); Red Blood Count 5.03 X10*6/uL (4.60-5.80); Red Cell Distribution Width 11.6 % (11.0-16.0); White Blood Count 6.8 X10*3/uL (4.8-10.8)
[2024-09-20 09:49] LABS: Estimated Average Glucose 91 mg/dL; Hemoglobin A1c % 4.8 % (<6.0)
[2024-09-20 10:25] LABS: Alanine Aminotransferase 28 U/L (0-40); Albumin Level 4.2 g/dL (3.5-5.0); Alkaline Phosphatase 82 U/L (39-117); Anion Gap 10 (12-20); Aspartate Amino Transferase 26 U/L (5-37); Bilirubin Total 1.4 mg/dL (0.0-1.0); Blood Urea Nitrogen 17 mg/dL (9-16); C Reactive Protein 0.15 mg/dL (< or = 0.50); Calcium 9.2 mg/dL (8.4-10.2); Carbon Dioxide 27 mmol/L (22-29); Chloride 105 mmol/L (96-108); Cholesterol 155 mg/dL (<200); Estimated Glomerular Filt Rate > 60; Glucose Random 92 mg/dL (60-115); HDL Cholesterol 77 mg/dL (>40); Iron 219 mcg/dL (45-160); LDL Cholesterol Calculated 58 mg/dL (<100); Percent Iron Saturation 58 % (15-50); Potassium 3.9 mmol/L (3.3-5.1); Sodium 138 mmol/L (135-145); Total Iron Binding Capacity 379 mcg/dL (228-428); Total Protein 7.6 g/dL (6.5-8.0); Triglycerides 101 mg/dL (<150); Unsaturated Iron Binding 160 ug/dL
[2024-09-20 10:46] LABS: Vitamin B12 402 pg/mL (200-900)
[2024-09-20 10:50] LABS: Ferritin 533 ng/mL (20-250); TSH reflex Free T4 3.35 uIU/mL (0.32-4.0); Vitamin D 25-OH Total 12.6 ng/mL (>30)
[2024-09-20 11:03] LABS: Insulin 5 uU/mL (2-29)
[2024-09-24 00:28] LABS: Vitamin A 82 mcg/dL (38-98)
[2024-09-28 15:33] LABS: Vitamin B1 6 nmol/L (8-30)
== END 2024-09-20 09:00 | disposition home or self-care (01) ==
LOC: HO.LAB 08:59
PROVIDERS: PCP Internal Medicine; Visit Provider Physician Assistant Surgical
DX: I10 Essential (primary) hypertension (principal); Z98.84 Bariatric surgery status
CPT/HCPCS: 36415; 80053; 80061; 82306; 82607; 82728; 82746; 83036; 83525; 83540; 84425; 84443; 84590; 84630; 85025; 86140

== ENCOUNTER 2025-01-23 10:34 | Outpatient (AMB) | payer OTHER, SELFPAY ==
--- NOTE | 2025-01-23 10:41 | A.OFFPC_ITS ---
Vital Signs 01/23/25 10:44 01/23/25 11:26 Height 5 ft 11 in Weight 204 lb 4 oz BMI 28.5 BP 136/92 H 128/80 Blood Pressure Location Lt brachial Lt brachial Position Sitting Sitting Pulse 84 Pulse Source Pulse Oximeter Temp 97.1 F Temp Source Temporal Artery Scan Pulse Oximetry (%) 97 Oxygen Delivery Method Room Air Intake Visit Reasons: check up Basting Marker Required: No Accompanied by: Self / Same As Patient Allergies fluoxetine (Prozac) Allergy (Unknown, Verified 01/23/25 10:52) Unknown lisinopril Adverse Reaction (Intermediate, Verified 01/23/25 10:52) epistaxis Wellbutrin Allergy (Unknown, Uncoded 01/23/25 10:52) Unknown Medication List - Last Reconciled 01/23/25 by Maximino Quarles MD albuterol sulfate 2.5 mg (3 mL) inhalation Q4-6H PRN 90 days albuterol sulfate 90 mcg/actuation 1 inh inhalation Q4-6H PRN cyclobenzaprine 10 mg PO BID PRN fluticasone propion-salmeterol 250-50 mcg/dose (Advair Diskus) 1 inh inhalation BID lidocaine 5% 1 patch topical DAILY nebulizers (Aeroneb Go Nebulizer) As directed nicotine 1 patch transdermal DAILY thiamine HCl (vitamin B1) 100 mg PO DAILY trazodone 50 mg PO BEDTIME PRN triamcinolone acetonide 0.5% 1 appl topical DAILY Tobacco use date assessed: 08/03/24 Dental Screening Dental Screen Date: 01/23/25 Did you have a dental visit in the last 12 months?: Yes Did you have a dental problem in the last 6 months where you did not have access to dental care?: No Was dental information given to patient?: Patient has dentist HPI check up HPI Details father has liver cancer metastatic- need patient for off work due to help. [facility] Medical History (Updated 01/23/25 @ 11:39 by Maximino Quarles MD) Tobacco abuse Back pain Osteochondroma of fibula Right knee pain Vitamin B1 deficiency BMI 35.0-35.9,adult Hematoma of penis Circumcision complication BMI 31.0-31.9,adult Phimosis of penis Balanitis Adjustment disorder, unspecified H. pylori infection Vitamin D deficiency BMI 32.0-32.9,adult BMI 34.0-34.9,adult Obesity Obstructive sleep apnea Dental trauma Hypertension Asthma GERD (gastroesophageal reflux disease) Surgical History Hx of laparoscopic partial gastrectomy Hx of wisdom tooth extraction Hx of circumcision Family History Father Myocardial infarction Mother HTN (hypertension) Diabetes Maternal Grandmother Stomach cancer Maternal Grandfather Prostate cancer Maternal Aunt Metastasis to breast Maternal Aunt Breast cancer Brother No problems noted. Brother No problems noted. Brother No problems noted. Brother No problems noted. Sister No problems noted. Daughter No problems noted. Social History Household Members: Family Housing: House Are you a primary resident care supervisor to a significant other at home: No Do you presently have visiting nurse or other home services: No Alcohol intake: current Alcohol intake frequency: a few times a week Comment: aware of trip hazard Patient Tobacco Use Status: Current everyday Tobacco user Tobacco use type: Cigarette Cigarettes Per Day: 2 e-Cigarette/Vaping Use: Never Used Second Hand Smoke Exposure: No service: No Current occupational status: employed Cognitive needs: No Hearing needs: No Vision needs: No Questionnaire PHQ-9 Over the last 2 weeks, how often have you been bothered by any of the following problems? 1. Little interest or pleasure in doing things: not at all 2. Feeling down, depressed, or hopeless: nearly every day 3. Trouble falling or staying asleep, or sleeping too much: nearly every day 4. Feeling tired or having little energy: nearly every day 5. Poor appetite or overeating: not at all 6. Feeling bad about yourself - or that you are a failure or have let yourself or your family down: not at all 7. Trouble concentrating on things, such as reading the newspaper or watching television: nearly every day 8. Moving or speaking so slowly that other people could have noticed. Or the opposite - being so fidgety or restless that you have been moving around a lot more than usual: not at all 9. Thoughts that you would be better off or of hurting yourself in some way: not at all Total score: 12 01172 - PHQ-9 Billing: Yes Source: Developed by Drs. Darian Khan, Mita Proctor, Vinh Richmond and colleagues, with an educational marge from [employer]. Thrive Questionnaire Date Thrive assessed: 01/23/25 I am a: Patient What is your living situation today?: I have a steady place to live Within the past 12 months, did the food you bought not last and you didn't have the money to get more?: I choose not to answer this question Within the past 12 months, did you worry whether your food would run out before you got money to buy more?: I choose not to answer this question Do you have trouble paying for medicines?: I choose not to answer this question Do you have trouble getting transportation to medical appointments?: I choose not to answer this question Do you have trouble paying your heating and electricity bill?: I choose not to answer this question Do you have trouble taking care of your child, family member or friend?: I choose not to answer this question Do you have trouble with day-to-day activities such as bathing, preparing meals, shopping, managing finances, etc.?: I choose not to answer this question Are you currently unemployed and looking for a job?: I choose not to answer this question Are you interested in more education?: I choose not to answer this question Please select the resources that you would like help with: None Currently or been in a relationship where the following occur: I choose not to answer THRIVE Score: 0 AUDIT C Alcohol Use Questionnaire (AUDIT-C) 1. How often do you have a drink containing alcohol?: Never 3. How often do you have six or more drinks on one occasion?: Never Total Score: 0 GRAEME-7 AMB Questionnaire GRAEME-7 Date GRAEME - 7 assessed: 01/23/25 Feeling nervous, anxious, or on edge: 0 = Not at all Not being able to stop or control worryin = Not at all Worrying too much about different things: 0 = Not at all Trouble relaxin = Not at all Being so restless that it is hard to sit still: 0 = Not at all Becoming easily annoyed or irritable: 0 = Not at all Feeling afraid as if something awful might happen: 0 = Not at all Total GRAEME-7 score (0-4 normal; 5-9 mild; 10-14 moderate; 15-21 severe): 0 Source: Developed by Drs. Darian Khan, Mita Proctor, Vinh Richmond and colleagues, with an educational marge from [employer]. GRAEME-7 Assessment Billing GRAEME-7 Assessment Tool: GRAEME-7 Assessment 83371 Physical exam (Primary Care) Vital Signs: Last Vital Signs Temp 97.1 F 01/23/25 10:44 Pulse 84 01/23/25 10:44 BP 128/80 01/23/25 11:26 Pulse Ox 97 01/23/25 10:44 Oxygen Delivery Method Room Air 01/23/25 10:44 BMI result Body Mass Index 28.5 Tobacco/Smoking Status: Tobacco use Status Tobacco use date assessed 08/03/24 01/23/25 10:42 Patient Tobacco Use Status Current everyday Tobacco 01/23/25 10:42 Tobacco use type Cigarette 01/23/25 10:42 e-Cigarette/Vaping Use Never Used 01/23/25 10:42 PHQ-9: PHQ-9 Score PHQ-9: Total score 12 01/23/25 11:24 Thrive Assessment: Date of Thrive Assessment Date Thrive assessed 01/23/25 01/23/25 10:53 Currently or been in a relationship where the following occur: I choose not to answer Const General: alert; No acute distress Eyes Conjunctivae: conjunctivae normal Resp Auscultation: clear to auscultation bilaterally Cardio Rate: regular rate Rhythm: regular rhythm GI Inspection: Yes normal to inspection Extrem General: Yes normal to inspection and No edema Coding Level of Care Code Est Pt Level 4 (00277) Complex EM visit Add On G2211 Diagnoses S/P laparoscopic sleeve gastrectomy Z98.84 Overweight (BMI 25.0-29.9) E66.3 GERD (gastroesophageal reflux disease) K21.9 Gynecomastia N62 Tobacco abuse Z72.0 Head ache R51.9 Insomnia G47.00 Additional Codes GRAEME-7 Assessment Billing - GRAEME-7 Assessment Tool: GRAEME-7 Assessment 77183 ([id number]) PHQ-9 - 75543 - PHQ-9 Billing: Yes ([id number]) Assessment & Plan Assessment & Plan (1) S/P laparoscopic sleeve gastrectomy: Comment: May 2023 Code(s): Z98.84 - Bariatric surgery status Category: Surgical Plan: Continue to follow-up with bariatric surgery (2) Overweight (BMI 25.0-29.9): Code(s): E66.3 - Overweight Category: Medical Plan: Diet and exercise (3) GERD (gastroesophageal reflux disease): Code(s): K21.9 - Gastro-esophageal reflux disease without esophagitis Category: Medical Plan: Avoid the foods that causes that usually spicy foods, tomato products, juices, coffee, soda and foods that your sensitive to. After eating do not lie down, allow 3-4 hours before in lie down. And keep the head of bed above 30 degrees to avoid the acid from going up. (4) Gynecomastia: Code(s): N62 - Hypertrophy of breast Category: Medical Plan: Patient has seen the plastic surgeon and advised mastectomy (5) Tobacco abuse: Comment: stopped 03/2023 Code(s): Z72.0 - Tobacco use Category: Medical Plan: back to smoking 1Q 2 days (6) Head ache: Code(s): R51.9 - Headache, unspecified Category: Medical (7) Insomnia: Code(s): G47.00 - Insomnia, unspecified Category: Medical Plan History of Present Illness The patient is a 34-year-old male presenting with a headache and insomnia. He reports a history of headaches that have been persistent and daily, located primarily on one side of the head, and exacerbated by stress and lack of sleep. The headaches have been severe enough to require daily use of uyop-qrk-ppiajro medications such as Excedrin and ibuprofen, which may have led to rebound headaches. The patient also reports poor sleep quality, averaging three to four hours per night, which has been ongoing for years. He occasionally uses melatonin to aid sleep but finds it insufficient. The patient has been advised to try trazodone to improve sleep quality and manage associated anxiety. The patient has a history of gastroesophageal reflux disease (GERD), asthma, and hypertension. He underwent sleeve gastrectomy in May 2023 and has since experienced a 9-pound weight gain. He continues to follow up with bariatric surgery and has been advised to maintain diet and exercise regimens. The patient has a history of gynecomastia and has consulted with a plastic surgeon regarding bilateral mastectomies, although insurance has denied coverage for the procedure. Laboratory tests from September 20 showed normal blood count, electrolytes, renal function, and blood sugar, but revealed high iron levels, low vitamin B1, and no detectable vitamin D. The patient denies taking any iron supplements. The patient reports smoking one cigarette every two days, a reduction from previous habits. He uses an albuterol inhaler as needed for asthma symptoms. Family history is significant for epilepsy in the patient's mother, and the patient has experienced episodes of whole-body shaking during sleep, as observed by his . 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 - Family: Assists in caregiving for father with stage 4 cancer - Substance Use: Smokes one cigarette every two days Review of Systems - Neurological: Reports daily headaches, denies history of migraines - Respiratory: Reports adequate control of asthma symptoms with albuterol inhaler, denies dyspnea - Sleep: Reports insomnia, averaging three to four hours of sleep per night Physical Exam Results - Labs: Normal blood count, electrolytes, renal function, and blood sugar; high iron levels; low vitamin B1; no detectable vitamin D - Imaging: No acute intracranial abnormality; mild mucosal thickening of the left frontal and ethmoidal sinuses Plan The patient will continue to follow up with bariatric surgery and maintain a diet and exercise regimen to manage weight post-sleeve gastrectomy. For the management of headaches, an EEG will be ordered to evaluate possible seizure activity, and a neurology referral will be made. The patient will be prescribed a medication to be taken as needed for headaches, and trazodone will be initiated to improve sleep quality and manage anxiety. Smoking cessation is strongly encouraged to improve overall health and reduce asthma exacerbations. The patient is advised to avoid overuse of lwzj-yzp-rbzogsi headache medications to prevent rebound headaches. Follow-up appointments will be scheduled to monitor the patient's progress and adjust treatment plans as necessary. Patient was informed and verbally consented to the use of an ambient scribe for clinic note documentation during this visit. Discussion Notes I discussed with the patient the importance of continuing follow-up with bariatric surgery and maintaining a diet and exercise regimen to manage weight post-sleeve gastrectomy. We talked about the need for an EEG to evaluate possible seizure activity and a referral to neurology for headache management. I explained the prescription of a medication for headaches and trazodone for sleep and anxiety management. I strongly encouraged smoking cessation to improve overall health and reduce as thma exacerbations. We discussed the risks of overusing qrdf-bey-sfnilwl headache medications and the potential for rebound headaches. Follow-up appointments were planned to monitor progress and adjust treatment as needed. Patient Instructions - Continue follow-up with bariatric surgery and maintain diet and exercise regimen. - Take prescribed headache medication as needed and trazodone for sleep. - Avoid overuse of bota-izx-tozpmxh headache medications to prevent rebound headaches. - Strongly consider quitting smoking to improve health and reduce asthma symptoms. - Attend follow-up appointments to monitor progress and adjust treatment plans. Orders: Orders EEG ambulatory Today R51.9 - Headache, unspecified Medications: New trazodone 50 mg PO BEDTIME PRN 30 tabs 0RF sleep G47.00 - Insomnia, unspecified
[2025-01-23 10:44] VITALS: BP 136/92; PULSE 84; TEMP 36.2; O2SAT 97; BMI 28.5
[2025-01-23 11:26] VITALS: BP 128/80
--- OUTSIDE RECORDS SUMMARY | 2025-01-23 11:26 | XMS_ITS | Data Portability ---
Author Organization [facility] - [facility], Allergy Address [address] [address] Assessment Encounter Date Assessment Date Assessment LastModified by Organization Details LastModified Time 01/12/2025 01/12/2025 1. Tonsil Stones Presented with recurring tonsil stones. Examination of the oropharynx showed small cryptic tonsils with no current debris. Suggested mechanical irrigation, such as water picks. Advised about the chronic but often temporary nature of tonsil stones, with emphasis on smoking reduction. 2. Muscle Tension Dysphonia Laryngoscopy was performed showing normal vocal cords, aligning symptoms with muscle tension dysphonia. Offered referral to voice therapy as an option due to moderate severity in symptom impact on daily vocal activities. Patient declined at this time 3. Snoring and Sleep Apnea There are issues with persistent snoring and mouth breathing. Patient weight loss post gastric sleeve may have modified sleep apnea severity. [email or web address] Not available 01/12/2025 14:47:40 Plan of Treatment Reminders Order Date Submit Date Provider Last Modified By Organization Details Last Modified Time Details Appointments None record ed. Lab None record ed. Referral None record ed. Procedures None record ed. Surgeries None record ed. Imaging None record ed. Medication Orders None record ed. Patient TargetsNo targets recorded. Patient Instructions Encounter Date Encounter Id Patient Instructions Last Modified By Organization Details Last Modified Time 01/12/2025 [id number] Please note: Parts of this encounter note have been generated by AI based on audio conversation. Patient consent was required prior to utilizing this technology. Content review was required prior to finalizing the note. [email or web address] Not available 01/12/2025 14:45:23 Reason for Referral None Reported. 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 Procedures Surgical History Date Name Laterality Status Provider Name and Address Organization Details Recorded Time 01/13/20 25 FOL_DP completed KRISTY LUNA MD [address] [place] [address], [phone], [facility] - [facility] 01/12/2025 14:38:42 laparoscopic sleeve gastrectomy completed Meghana Samaniego CT - [facility] 01/12/2025 14:32:38 Imaging Results None recorded. Procedure Notes None recorded. Medical Equipment None Reported. Allergies No known drug allergies Medications Not known to be on any medication Vitals Date Recorded Body height Body mass index (BMI) Body weight Provider Name and Address Organization Details Last Updated DateTime 01/12/2025 180.34 cm 27.2 kg/m2 04681.51 g Meghana Samaniego [facility] 01/12/2025 14:30:11 Social History None recorded. Functional Status None recorded. Mental Status None recorded. Family History Nothing Reported. Medical History Condition Response Hypertension Y Asthma Y Past Encounters Encounter ID Performer Location Encounter Start Date Encounter Closed Date Diagnosis/Indication Diagnosis SNOMED-CT Code Diagnosis ICD10 Code Diagnosis Note [id number] KRISTY LUNA MD [facility] [address] [place] [address] 01/12/2025 14:24:53 01/12/2025 15:48:21 Amygdalolith 3023715 J35.8 Hoarse 81113806 R49.0 Health Concerns Section Related Observation LastModified by Organization Detai ls LastModified Time None Recorded Concern Status LastModified by Organization Details LastModified Time None Recorded Advance Directives Directive None Recorded Payers Insurance Date Sequence Insurance Name Policy Number Policy Knapp Covered Member ID Knapp Member ID Guarantor Name 01/12/2025 1 [facility] - PRO CLAIM PLUS (PPO) Bigg Cloudquez [id number] Bigg Cloudquez 01/12/2025 1 [facility] - HEALTH NET PLAN (MEDICAID HMO) ARIELNACGinette Cloudquez [id number] Bigg Cloudquez Notes Date Note Type Note Provider Name and Address Organization Details Recorded Time 01/12/2025 text/html tonsil stones hoarse The patient is a 34-year-old male presenting with concerns regarding tonsil stones and vocal changes, He reports experiencing throat constriction for several years, on occasion finding it painful to speak. He has also noticed incidents where he awakes unable to speak properly, often starting as a whisper, and briefly losing his voice. Primary symptomatic management via salt water irrigation has been attempted, offering minimal relief, though tonsil stones persistently recur. He has a reduced smoking habit, consuming one cigarette every two days, and has cut down significantly following earlier higher usage. He maintains an adequate water intake, and has experienced reduced reflux symptoms following a gastric sleeve surgery. 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 Issues of snoring and mouth breathing remain a source of concern, with a noted history of sleep apnea managed in part with a now unused CPAP machine due to fit issues. KRISTY LUNA MD [address] [place] [address], [phone], [place] - [facility] 01/12/2025 14:47:47
== END 2025-01-23 11:44 | disposition home or self-care (01) ==
LOC: HO.HMCH 10:35
PROVIDERS: PCP Internal Medicine; Visit Provider Internal Medicine
DX: Z98.84 Bariatric surgery status (principal); E66.3 Overweight; K21.9 Gastro-esophageal reflux disease without esophagitis; N62 Hypertrophy of breast; Z72.0 Tobacco use; R51.9 Headache, unspecified; G47.00 Insomnia, unspecified

== ENCOUNTER → 2025-01-23 10:34 | Outpatient (BNVA) | payer OTHER, SELFPAY | PROVIDERS: PCP Internal Medicine; Visit Provider Internal Medicine | DX: E66.3 Overweight (principal); Z68.28 Body mass index [BMI] 28.0-28.9, adult; K21.9 Gastro-esophageal reflux disease without esophagitis; N62 Hypertrophy of breast; R51.9 Headache, unspecified; G47.00 Insomnia, unspecified; Z72.0 Tobacco use; Z98.84 Bariatric surgery status; Z13.39 Encounter for screening examination for other mental health and behavioral disorders; Z13.30 Encounter for screening examination for mental health and behavioral disorders, unspecified | CPT/HCPCS: 96127; 99212 ==

== ENCOUNTER 2025-04-13 10:02 | Outpatient (REF) | payer OTHER, SELFPAY ==
--- NOTE | 2025-04-13 11:20 | EEG_ITS ---
Roomed Performed:?402 Reason: headache History: loretta, hypertension, asthma, GERD - Patient reports episodes of shaking in his sleep since Jun. Patient states that they happen 2-3 times week. Patient reports last one last week. Medication: albuterol sulfate, cyclobenzaprine, fluticasone, nebulizer, thiamine, trazodone, triamcinolone acetonide Technical description Photic stimulation: completed Hyperventilation:? good effort Behavioral state: pleasant State of Consciousness: awake Skull defect: none Sedation: none Handedness: right Duration of study:?31 min 59 sec Description: This is a 16 channel EEG with an EKG lead. Patient is reported awake during the tracing. Background EEG rhythm is 12-14 hertz low to medium amplitude with no obvious asymmetry or paroxysmal tendency. Photic stimulation does not produce any significant abnormality. Hyperventilation is unremarkable. Cardiac lead does not reveal any significant abnormality. No sharp wave spikes or paroxysmal tendency noted. Impression: Unremarkable EEG. MTDD
--- OUTSIDE RECORDS SUMMARY | 2025-04-13 11:21 | XMS_ITS | Clinical Summary ---
Author Organization [facility] Address [address] [place] [phone] Phone Care Team Providers Care Benzol Still Operator Name Role Phone Maximino Quarles MD Primary Care Provider [phone] Allergies No known active allergies Medications ALBUTEROL INHL Activ e hydroCHLOROthi azide (MICROZIDE) 12.5 mg capsule 3 Active ibuprofen (ADVIL,MOTRIN) 800 MG tablet TAKE 1 TAB BY MOUTH EVERY 8 HOURS NEEDED FOR PAIN 3 Active nicotine (NICODERM CQ) 14 mg/24 hr APPLY 1 PATCH TRANSDERMALLY DAILY 3 Active chlorhexidine (PERIDEX) 0.12 % solution TAKE 1 CAPFUL BY MOUTH, SWISH, HOLD 2 MINS THEN SPIT OUT 3 TIMES A DAY AFTER MEALS 3 Active fluticasone propionate (FLOVENT HFA) 220 mcg/actuation inhaler Inhale into the lungs 2 (two) times a day. Active Active Problems Problem Noted Date Diagnosed Date Class 2 severe obesity due t o excess calories with serious comorbidity and body mass index (BMI) of 35.0 to 35.9 in adult 11/17/2022 Assessment & Plan (11/17/2022 3:57 PM EDT): This is a 31 YO patient who is interested in weight loss surgery, specifically the laparoscopic sleeve gastrectomy for weight loss. We have discussed gastric bypass and sleeve gastrectomy surgery in detail including risks, benefits, and alternatives. We have also discussed requirements preop and post op. They understands that they are required to lose about 10 percent of their current weight which is 25 lbs. The goal weight at the time of submission to the insurance company will be 227.2 pounds. In an effort to help the patient to lose weight I have prescribed an eating plan which will consist of a protein shake or a protein bar or Filipino yogurt or cottage cheese to be consumed at 9 AM and 3 PM daily. The patient will consume 4 ounces of protein with 6 ounces of vegetable or small salad with a noncreamy salad dressing of not more than 2 tablespoons at 12 PM and 6 PM daily. At the 6 PM meal the patient may have 1/2 cup of carbohydrate. We have ordered required labs and testing. The patient will attend 5 nutrition classes, 2 appointments, and dietitian consultation. The patient will need to obtain a medical clearance letter from the primary care doctor prior to submission to the insurance company. This patient went to be a great surgical candidate as he has a significant family cardiac history with heart disease and early in his family. The patient will see the dietitian in 2 weeks and I will follow up with them again in 4 weeks to ensure compliance with the meal plan. The patient will continue current medications as reviewed. They are not stable and are considered obese. I spent 52 minutes with this patient which also included documentation. Preoperative examination 11/17/2022 Family History Medical History Relation Comments Hypertension Brother 1 Hypertension Brother 2 Heart attack Father Diabetes type II Maternal Grandmother Heart attack Maternal Grandmother Hypertension Maternal Grandmother Diabetes type II Mother High cholesterol Mother Hypertension Mother Stroke Mother Diabetes type II Paternal Grandmother Heart attack Paternal Grandmother Hypertension Paternal Grandmother Hypertension Sister Relation Status Comments Brother 1 Alive Brother 2 Alive Brother 3 Alive Brother 4 Alive Father Maternal Grandmother Mother Alive Paternal Grandmother Sister Alive Social History Tobacco Use Types Packs/Day Years Used Date Smoking Tobacco: Every Day Cigarettes Smokeless Tobacco: Never Tobacco Cessation:Ready to Q uit: Yes; Counseling Given: Yes Alcohol Use Standard Drinks/Week Comments Yes 6 (1 standard drink = 0.6 oz pur e alcohol) rum on weekends Education Answer Date Recorded Are you interested in more education? Not on saurav e 11/08/2022 Are you concerned about learning? Not on file 11/08/2022 No 11/08/2022 No 11/08/2022 Digital Access Answer Date Recorded No 12/09/2022 No 12/09/2022 Reliable internet access at home? Not on file 12/09/2022 Device with a working camera? Not on file Sex and Gender Information Value Date Recorded Sex Assigned at Not on file Legal Sex Male 2:47 PM EDT Gender Identity Not on file Sexual Orientation Not on file Occupation Industry Job Start Date Job End Date works for [employer] Not on file Not on file Not on file Last Filed Vital Signs Vital Sign Reading Time Taken Comments Blood Pressure 150/94 11/17/2022 10:00 AM EDT Pulse 92 11/17/2022 10:00 AM EDT Temperature 36.5 C (97.7 F) 11/17/2022 10:00 AM EDT Respiratory Rate - - Oxygen Saturation 98% 11/17/2022 10:00 AM EDT Inhaled Oxygen Concentration - - Weight 112 kg (247 lb) 12/22/2022 8:46 AM EDT Height 181.6 cm (5' 11.5 ) 11/17/2022 10:00 AM E DT Body Mass Index 33.97 11/17/2022 10:00 AM EDT Plan of Treatment Health Maintenance Due Date Last Done Comments Adult Td,Tdap Booster 1991 POTASSIUM LEVEL 1991 DEPRESSION SCREENING 2003 SMOKING Hx and SMOKELESS TOB ACCO SCREENING 11/19/2004 HEPATITIS C SCREENING 11/19/2009 HIV ONE-TIME SCREENING (18-6 5 YEARS) 11/19/2009 PNEUMOCOCCAL VACCINES (0-49 years) (1 of 2 - PCV) 11/19/2010 INFLUENZA VACCINE (#1) 2025 COVID-19 VACCINE (1 - 2023-2 5 season) 2025 HEPATITIS A VACCINES Aged Out No long er eligible based on patient's age to complete this topic HIB VACCINES Aged Out No longer eligi ble based on patient's age to complete this topic MENINGOCOCCAL VACCINES (ACWY) Aged Out No longer eligible based on patient's age to complete this topic MENINGOCOCCAL VACCINES (B) Aged Out N o longer eligible based on patient's age to complete this topic Medical Devices Not on file Insurance [employer] [place] [address] [place] [address] [place] [address] [place] [address] ACO Care Teams Benzol Still Operator Relationship Specialty Start Date End Date Maximino Quarles MD [address] [place] [address] [address] [place] [phone] PCP - General Internal Medicine 10/24/22 Additional Source Comments The information contained in this document represents components of the legal health record. It is not the complete legal health record.[facility]
== END 2025-04-13 10:03 | disposition home or self-care (01) ==
LOC: HO.NEURO 10:02
PROVIDERS: PCP Internal Medicine; Visit Provider Internal Medicine
DX: R51.9 Headache, unspecified (principal)
CPT/HCPCS: 95816

== ENCOUNTER → 2025-04-13 11:20 | Outpatient (BNV) | payer OTHER, SELFPAY | PROVIDERS: PCP Internal Medicine; Visit Provider Psychiatry & Neurology Neurology | DX: R51.9 Headache, unspecified (principal) | CPT/HCPCS: 95816 ==

== ENCOUNTER 2025-04-27 11:19 | Outpatient (AMB) | payer OTHER, SELFPAY ==
[2025-04-27 11:21] VITALS: BP 126/80; PULSE 88; TEMP 36.2; O2SAT 97; BMI 28.9
--- NOTE | 2025-04-27 11:21 | MHC.PC.OV ---
Vital Signs 04/27/25 11:21 Height 5 ft 11 in Weight 207 lb 4 oz BMI 28.9 BP 126/80 Blood Pressure Location Lt brachial Position Sitting Pulse 88 Pulse Source Pulse Oximeter Temp 97.1 F Temp Source Temporal Artery Scan Pulse Oximetry (%) 97 Oxygen Delivery Method Room Air Intake Visit Reasons: annual exam Allergies fluoxetine (Prozac) Allergy (Unknown, Verified 04/27/25 11:23) Unknown lisinopril Adverse Reaction (Intermediate, Verified 04/27/25 11:23) epistaxis Wellbutrin Allergy (Unknown, Uncoded 04/27/25 11:23) Unknown Medication List - Last Reconciled 04/27/25 by Maximino Quarles MD albuterol sulfate 2.5 mg (3 mL) inhalation Q4-6H PRN 90 days albuterol sulfate 90 mcg/actuation 1 inh inhalation Q4-6H PRN epinephrine (EpiPen 2-Ismael) 0.3 mg (0.3 mL) IM Q10M PRN fluticasone propion-salmeterol 250-50 mcg/dose (Advair Diskus) 1 inh inhalation BID lidocaine 5% 1 patch topical DAILY nebulizers (Aeroneb Go Nebulizer) As directed thiamine HCl (vitamin B1) 100 mg PO DAILY trazodone 50 mg PO BEDTIME PRN triamcinolone acetonide 0.5% 1 appl topical DAILY Tobacco use date assessed: 04/27/25 Dental Screening Dental Screen Date: 04/27/25 Did you have a dental visit in the last 12 months?: Yes Did you have a dental problem in the last 6 months where you did not have access to dental care?: No Was dental information given to patient?: Patient has dentist HPI annual exam HPI Details occ dizzy [facility] Medical History (Updated 04/27/25 @ 11:51 by Maximino Quarles MD) Obstructive sleep apnea Tobacco abuse Back pain Osteochondroma of fibula Right knee pain Vitamin B1 deficiency BMI 35.0-35.9,adult Hematoma of penis Circumcision complication BMI 31.0-31.9,adult Phimosis of penis Balanitis Adjustment disorder, unspecified H. pylori infection Vitamin D deficiency BMI 32.0-32.9,adult BMI 34.0-34.9,adult Obesity Dental trauma Hypertension Asthma GERD (gastroesophageal reflux disease) Surgical History Hx of laparoscopic partial gastrectomy Hx of wisdom tooth extraction Hx of circumcision Family History (Updated 04/27/25 @ 11:45 by Maximino Quarles MD) Father Myocardial infarction Mother HTN (hypertension) Diabetes CVA (cerebral vascular accident) Maternal Grandmother Stomach cancer Myocardial infarction Maternal Grandfather Prostate cancer Maternal Aunt Metastasis to breast Maternal Aunt Breast cancer Brother No problems noted. Brother No problems noted. Brother No problems noted. Brother No problems noted. Sister No problems noted. Daughter No problems noted. Paternal Grandmother Myocardial infarction Social History (Updated 04/27/25 @ 11:47 by Maximino Quarles MD) Household Members: Family Housing: House Are you a primary child day care teacher to a significant other at home: No Do you presently have visiting nurse or other home services: No Alcohol intake: current Alcohol intake frequency: a few times a week Comment: aware of trip hazard 3x a week (04/2025) 7-10 drink Patient Tobacco Use Status: Current everyday Tobacco user Tobacco use type: Cigarette Cigarettes Per Day: 2 Years Smoked: smoking 10 years (04/2025) e-Cigarette/Vaping Use: Never Used Second Hand Smoke Exposure: No service: No Current occupational status: employed Cognitive needs: No Hearing needs: No Vision needs: No Questionnaire PHQ-9 Over the last 2 weeks, how often have you been bothered by any of the following problems? 1. Little interest or pleasure in doing things: not at all 2. Feeling down, depressed, or hopeless: nearly every day 3. Trouble falling or staying asleep, or sleeping too much: nearly every day 4. Feeling tired or having little energy: nearly every day 5. Poor appetite or overeating: not at all 6. Feeling bad about yourself - or that you are a failure or have let yourself or your family down: not at all 7. Trouble concentrating on things, such as reading the newspaper or watching television: nearly every day 8. Moving or speaking so slowly that other people could have noticed. Or the opposite - being so fidgety or restless that you have been moving around a lot more than usual: not at all 9. Thoughts that you would be better off or of hurting yourself in some way: not at all Total score: 12 Source: Developed by Drs. Darian Khan, Mita Proctor, Vinh Richmond and colleagues, with an educational marge from [employer]. Thrive Questionnaire Date Thrive assessed: 01/23/25 I am a: Patient What is your living situation today?: I have a steady place to live Within the past 12 months, did the food you bought not last and you didn't have the money to get more?: I choose not to answer this question Within the past 12 months, did you worry whether your food would run out before you got money to buy more?: I choose not to answer this question Do you have trouble paying for medicines?: I choose not to answer this question Do you have trouble getting transportation to medical appointments?: I choose not to answer this question Do you have trouble paying your heating and electricity bill?: I choose not to answer this question Do you have trouble taking care of your child, family member or friend?: I choose not to answer this question Do you have trouble with day-to-day activities such as bathing, preparing meals, shopping, managing finances, etc.?: I choose not to answer this question Are you currently unemployed and looking for a job?: I choose not to answer this question Are you interested in more education?: I choose not to answer this question Please select the resources that you would like help with: None Currently or been in a relationship where the following occur: I choose not to answer THRIVE Score: 0 AUDIT C Alcohol Use Questionnaire (AUDIT-C) 1. How often do you have a drink containing alcohol?: 2-4 times a month 2. How many drinks containing alcohol do you have on a typical day when you are drinking?: 5 or 6 3. How often do you have six or more drinks on one occasion?: Less than monthly Total Score: 5 GRAEME-7 AMB Questionnaire GRAEME-7 Date GRAEME - 7 assessed: 01/23/25 Feeling nervous, anxious, or on edge: 0 = Not at all Not being able to stop or control worryin = Not at all Worrying too much about different things: 0 = Not at all Trouble relaxin = Not at all Being so restless that it is hard to sit still: 0 = Not at all Becoming easily annoyed or irritable: 0 = Not at all Feeling afraid as if something awful might happen: 0 = Not at all Total GRAEME-7 score (0-4 normal; 5-9 mild; 10-14 moderate; 15-21 severe): 0 Source: Developed by Drs. Darian Khan, Mita Proctor, Vinh Richmond and colleagues, with an educational marge from [employer]. Review of Systems Const Denies poor appetite and Denies weakness Eyes Denies no additional complaints ENT Reports Normal hearing present, Denies dizziness, Denies nasal congestion, Denies tinnitus and Denies sore throat Card Denies chest pain, Denies syncope, Denies rapid heart rate and Denies dyspnea Resp Denies cough and Denies dyspnea GI Denies change in stool character, Reports constipation, Denies diarrhea, Denies nausea and Denies vomiting Denies dysuria and Denies urinary frequency Neuro Reports Normal hearing present, Denies confusion, Denies dizziness, Denies syncope and Denies weakness Psych Denies confusion Physical exam (Primary Care) Vital Signs: Last Vital Signs Temp 97.1 F 04/27/25 11:21 Pulse 88 04/27/25 11:21 BP 126/80 04/27/25 11:21 Pulse Ox 97 04/27/25 11:21 Oxygen Delivery Method Room Air 04/27/25 11:21 BMI result Body Mass Index 28.9 Tobacco/Smoking Status: Tobacco use Status Tobacco use date assessed 04/27/25 04/27/25 11:25 Patient Tobacco Use Status Current everyday Tobacco 04/27/25 11:47 Tobacco use type Cigarette 04/27/25 11:47 e-Cigarette/Vaping Use Never Used 04/27/25 11:47 PHQ-9: PHQ-9 Score PHQ-9: Total score 12 04/27/25 11:37 Thrive Assessment: Date of Thrive Assessment Date Thrive assessed 01/23/25 04/27/25 11:25 Currently or been in a relationship where the following occur: I choose not to answer Const General: No confusion Orientation/consciousness: No confusion HENMT Head: Yes normocephalic Ears: external ears normal and TM's normal bilaterally Face and sinus: Yes normal facial exam Mouth: moist mucous membranes Throat: Yes tonsils normal Eyes Conjunctivae: conjunctivae normal Pupils: Equal, round and reactive pupils present and Pupil accommodation reflex normal Direct Ophthalmoscopy: normal light reflex Neck Neck: No lymphadenopathy Thyroid: Thyroid normal Chest Chest palpation & inspection: normal inspection of the chest Resp Effort & Inspection: normal respiratory effort and no audible wheezes Auscultation: clear to auscultation bilaterally, no crackles, no wheezes and lung sounds not diminished Cardio Rate: regular rate Rhythm: regular rhythm Peripheral pulses: radial pulses present and dorsalis pedis present GI Palpation (GI): no masses Auscultation: normal bowel sounds and normoactive bowel sounds Rectal Exam - Male: Yes deferred Skin General skin exam: no rashes or lesions noted Rashes: no rashes Neuro General: No confusion Cranial nerves: Yes Equal, round and reactive pupils present and Yes Normal hearing present Cognition (Neuro): normal cognition Gait exam (Neuro): Normal gait present Motor exam (neuro): 5/5 motor strength present throughout Deep tendon reflexes (DTR's): Right brachioradialis reflex intensity grade: 2+, Left brachioradialis reflex intensity grade: 2+, Right patellar reflex intensity grade: 2+ and Left patellar reflex intensity grade: 2+ Extrem General: No edema Office Procedures Flu Questionnaire Does the patient have a severe egg allergy?: No Does the patient have severe life threatening allergies?: No Does the patient have a fever or illness today?: No Has the patient ever had Guillain-[place] Syndrome?: No Has the patient ever had any past reaction to a flu shot?: No Immunizations Fluarix [id number] (PF) 45 mcg (15 mcg x 3)/0.5 mL IM syringe Performing Provider: Maximino Quarles MD [facility] Administered by: Tia Jorge CMA on 04/27/25 12:12 Dose Route Admin Location Dispensed Lot Number Expiration Date NDC Funding Coordinator 0.5 mL IM Left Deltoid 0.5 mL [id number] 01/09/26 [id number] [employer] VIS Given Date VIS Provided VIS Publication Date 04/27/25 Single Vaccine 24 Eligibility Eligibility Date Funding Source Not [facility] Eligible 04/27/25 Private Coding Level of Care Code Est Pt Prev Care 18-39y([id number]) Diagnoses Annual physical exam Z00.00 Asthma J45.909 GERD (gastroesophageal reflux disease) K21.9 S/P laparoscopic sleeve gastrectomy Z98.84 Hypertension I10 Overweight (BMI 25.0-29.9) E66.3 Diarrhea R19.7 Obstructive sleep apnea G47.33 Assessment & Plan Assessment & Plan (1) Annual physical exam: Code(s): Z00.00 - Encounter for general adult medical examination without abnormal findings Category: Medical Plan: Patient is advised to eat healthy, keep well hydrated, keep active and have adequate sleep. (2) Asthma: Code(s): J45.909 - Unspecified asthma, uncomplicated Category: Medical Plan: Patient has albuterol inhaler as needed as well as Advair (3) GERD (gastroesophageal reflux disease): Code(s): K21.9 - Gastro-esophageal reflux disease without esophagitis Category: Medical Plan: Avoid the foods that causes that usually spicy foods, tomato products, juices, coffee, soda and foods that your sensitive to. After eating do not lie down, allow 3-4 hours before in lie down. And keep the head of bed above 30 degrees to avoid the acid from going up. (4) S/P laparoscopic sleeve gastrectomy: Comment: May 2023 Code(s): Z98.84 - Bariatric surgery status Category: Surgical Plan: Continue to follow-up with bariatric (5) Hypertension: Code(s): I10 - Essential (primary) hypertension Category: Medical Plan: Continue with blood pressure medication. Decrease salt intake and exercise (6) Overweight (BMI 25.0-29.9): Code(s): E66.3 - Overweight Category: Medical (7) Diarrhea: Code(s): R19.7 - Diarrhea, unspecified Category: Medical (8) Obstructive sleep apnea: Comment: 2017 Code(s): G47.33 - Obstructive sleep apnea (adult) (pediatric) Category: Medical Plan: Discussed importance of getting this treated Plan History of Present Illness The patient is a 34-year-old male presenting for a physical exam and management of multiple chronic conditions. The patient has a history of being overweight, which has been a concern post-laparoscopic gastrectomy performed in May 2023. Despite initial weight loss, the patient reports regaining weight due to increased appetite and difficulty adhering to dietary recommendations. Hypertension is a known condition for the patient, and current management includes monitoring and lifestyle modifications. The patient has asthma, managed with an albuterol inhaler and Advair, though usage has decreased recently. The patient anticipates increased usage during the winter months due to seasonal exacerbations. Insomnia has been a persistent issue, and the patient is currently on trazodone for management. The patient was diagnosed with sleep apnea following a sleep study and has been prescribed a CPAP machine. However, the patient is not using the machine due to an incorrect mask fit, which needs to be addressed. The patient reports elevated iron levels, with a serum iron of 533, potentially linked to multivitamin intake. Liver function tests remain normal despite the elevated iron. Vitamin deficiencies include low vitamin B1 and vitamin D, for which supplementation is being considered. The patient experiences chronic diarrhea, exacerbated by certain foods, and is considering a gastroenterology referral for further evaluation. The patient has a history of smoking but quit in March 2023, although occasional smoking persists. Health Maintenance - Vaccination: Flu shot requested and planned for administration during the visit - Weight Management: Discussion on dietary changes and potential use of weight management programs - Smoking Cessation: Encouragement to maintain cessation and awareness of health risks associated with smoking Social History - Smoking: Former smoker, quit in March 2023, occasional smoking persists - Alcohol Use: Consumes alcohol a few times a week, with intake of 7 to 10 drinks per occasion - Diet: Reports increased appetite and difficulty adhering to dietary recommendations post-gastrectomy Review of Systems - General: Reports insomnia, weight gain post-surgery - Respiratory: Reports dyspnea at night, diagnosed with sleep apnea - Gastrointestinal: Reports chronic diarrhea, exacerbated by certain foods - Neurological: Reports dizziness, denies nausea or vomiting Physical Exam General: Cooperative, overweight, healthy appearing, comfortable, no acute distress and well developed Orientation: Patient oriented x3 Limitations: No limitations Head: Normal to inspection Ears: Hearing grossly normal bilaterally Nose: Normal external nose present Face and sinus: Normal facial exam Eyes: Appearance normal, both eyes and all related structures Neck: Normal visual inspection and Yes full ROM Respiratory: Normal respiratory effort and able to speak in complete sentences. Clear to auscultation bilaterally Cardiovascular: Regular rate and rhythm. Normal S1 and S2 GI: Normal to inspection. Soft to palpation and nontender Skin: No rashes or lesions noted Neuro: Patient oriented x3 Extremities: Normal to inspection Results - Labs: Normal blood count, normal electrolytes, normal renal function, elevated iron levels (serum iron 533), low vitamin B1, low vitamin D - Imaging: Unremarkable EEG, normal liver function tests Plan Patient was informed and verbally consented to the use of an ambient scribe for clinic note documentation during this visit. 1. Overweight The patient is advised to continue with dietary modifications and consider weight management programs such as Weight Watchers. Follow-up with bariatrics is recommended to address weight gain post-gastrectomy. 2. Hypertension Hypertension management includes lifestyle modifications and regular monitoring of blood pressure. 3. Asthma The patient is advised to use the albuterol inhaler and Advair as needed, with increased usage anticipated during winter months. 4. Insomnia Insomnia is managed with trazodone, and the patient is encouraged to maintain a regular sleep schedule. 5. Sleep Apnea The patient is advised to obtain the correct CPAP mask to ensure effective treatment of sleep apnea. 6. Elevated Iron Levels The patient is advised to review multivitamin intake to reduce iron levels and prevent potential liver issues. 7. Low Vitamin B1 Vitamin B1 supplementation is recommended to address deficiency. 8. Low Vitamin D Vitamin D supplementation is recommended to address deficiency. 9. Diarrhea The patient is considering a referral to gastroenterology for further evaluation of chronic diarrhea. 10. Smoking Cessation The patient is encouraged to maintain smoking cessation and is informed of the health risks associated with smoking. Discussion Notes During the visit, I discussed the importance of managing weight through dietary changes and potential weight management programs. We reviewed the patient's hypertension management plan, emphasizing lifestyle modifications and regular monitoring. I advised the patient on the use of asthma medications, particularly during the winter months. We addressed the patient's insomnia and the need for a regular sleep schedule. I highlighted the importance of obtaining the correct CPAP mask for effective sleep apnea management. We discussed the elevated iron levels and the need to review multivitamin intake. I recommended vitamin B1 and D supplementation to address deficiencies. The patient was informed about the potential referral to gastroenterology for chronic diarrhea evaluation. We also discussed the importance of maintaining smoking cessation and the associated health risks. Patient Instructions - Continue dietary modifications and consider joining a weight management program. - Monitor blood pressure regularly and adhere to lifestyle changes for hypertension management. - Use albuterol inhaler and Advair as needed, especially during winter. - Maintain a regular sleep schedule and continue trazodone for insomnia. - Obtain the correct CPAP mask for sleep apnea treatment. - Review multivitamin intake to manage elevated iron levels. - Take vitamin B1 and D supplements as recommended. - Consider a referral to gastroenterology for chronic diarrhea evaluation. - Maintain smoking cessation and be aware of health risks associated with smoking. Orders: Orders Influenza [id number] Immunization Today Z23 - Encounter for immunization Referrals Gastroenterology Referral R19.7 - Diarrhea, unspecified Medications: New tirzepatide (weight loss) (Zepbound) for 4 weeks 2.5 mg (0.5 mL) subcut QWEEK 2 mL 2RF E66.3 - Overweight Refilled thiamine HCl (vitamin B1) 100 mg PO DAILY 60 tabs 0RF E66.3 - Overweight
--- OUTSIDE RECORDS SUMMARY | 2025-04-27 14:33 | XMS_ITS | Clinical Summary ---
Author Organization [facility] Address [address] [place] [address] Phone Care Team Providers Care Air Traffic Controller Name Role Phone Maximino Quarles MD Primary Care Provider [phone] Allergies No known active allergies Medications ALBUTEROL [...] protein shake or a protein bar or Uzbek yogurt or cottage cheese to be consumed [...] VACCINE (#1) 2025 COVID-19 VACCINE (1 - 2024-2 6 season) 2025 HEPATITIS A VACCINES Aged Out [...] [facility] [place] [address] [place] [address] [place] [address] [address] [place] [address] ACO Care Teams Air Traffic Controller Relationship Specialty Start Date End Date Maximino Quarles MD [address] [place] [address] Drive [address] [place] [phone] PCP - General Internal Medicine 10/24/22 Additional Source Comments The information contained in this document represents components of the legal health record. It is not the complete legal health record.[facility]
--- OUTSIDE RECORDS SUMMARY | 2025-04-27 14:33 | XMS_ITS | Data Portability ---
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 [place] 14:45:21 Hoarse [id number] Active 025 KRISTY LUNA MD [address] [address], [place], [phone], [facility] - [facility] [place] 14:45:29 Problem Notes None recorded. Procedures Surgical History Date Name Laterality Status Provider Name and Address Organization Details Recorded Time 01/13/20 25 FOL_DP completed KRISTY LUNA MD [address] [place] [address], [phone], [facility] - [facility] [place] 01/12/2025 14:38:42 laparoscopic sleeve gastrectomy completed Meghana Samaniego [place] [facility] 01/12/2025 14:32:38 Imaging Results None recorded. Procedure Notes None recorded. Medical Equipment None Reported. Allergies No known drug allergies Medications Not known to be on any medication Vitals Date Recorded Body height Body mass index (BMI) Body weight Provider Name and Address Organization Details Last Updated DateTime 01/12/2025 180.34 cm 27.2 kg/m2 68625.51 g Meghana Samaniego [facility] 01/12/2025 14:30:11 Social History None recorded. Functional Status None recorded. Mental Status None recorded. Family History Nothing Reported. 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 [id number] Hoarse 79107893 R49.0 [id number] Health Concerns Section Related Observation LastModified by Organization Detai ls LastModified Time None Recorded Concern Status LastModified by Organization Details LastModified Time None Recorded Advance Directives Directive None Recorded Payers Insurance Date Sequence Insurance Name Policy Number Policy Knapp Covered Member ID Knapp Member ID Guarantor Name 01/12/2025 1 [facility] - PRO CLAIM PLUS (PPO) Bigg Cloudquez [id number] Bigg Sellers 01/12/2025 1 [facility] - HEALTH NET PLAN (MEDICAID HMO) CAMERON Cloudquez [id number] Bigg Marlo Notes Date Note Type Note Provider Name [...] due to fit issues. KRISTY LUNA MD [address] [place] [address], [phone], [place] [facility] 01/12/2025 14:47:47
== END 2025-04-27 12:20 | disposition home or self-care (01) ==
LOC: HO.HMCH 11:19
PROVIDERS: PCP Internal Medicine; Visit Provider Internal Medicine
DX: Z00.00 Encounter for general adult medical examination without abnormal findings (principal); J45.909 Unspecified asthma, uncomplicated; K21.9 Gastro-esophageal reflux disease without esophagitis; Z98.84 Bariatric surgery status; I10 Essential (primary) hypertension; E66.3 Overweight; R19.7 Diarrhea, unspecified; G47.33 Obstructive sleep apnea (adult) (pediatric); Z23 Encounter for immunization

== ENCOUNTER → 2025-04-27 11:19 | Outpatient (BNVA) | payer OTHER, SELFPAY | PROVIDERS: PCP Internal Medicine; Visit Provider Internal Medicine | DX: Z00.00 Encounter for general adult medical examination without abnormal findings (principal); J45.909 Unspecified asthma, uncomplicated; K21.9 Gastro-esophageal reflux disease without esophagitis; I10 Essential (primary) hypertension; E66.3 Overweight; R19.7 Diarrhea, unspecified; G47.33 Obstructive sleep apnea (adult) (pediatric); G47.00 Insomnia, unspecified; R79.89 Other specified abnormal findings of blood chemistry; E51.9 Thiamine deficiency, unspecified; E55.9 Vitamin D deficiency, unspecified; F17.210 Nicotine dependence, cigarettes, uncomplicated; Z23 Encounter for immunization; Z98.84 Bariatric surgery status | CPT/HCPCS: 90471; 90656; 99395 ==

== ENCOUNTER 2025-06-20 14:25 | Outpatient (AMB) | payer OTHER, SELFPAY ==
--- NOTE | 2025-06-20 14:28 | MHC.OFFVISWM ---
VS Expanded 06/20/25 14:51 BP 162/98 H Blood Pressure Location Rt brachial Blood Pressure Position Sitting Pulse 86 Pulse Source Pulse Oximeter Temp 96.8 F Temperature Source Temporal Artery Scan Pulse Oximetry 99 Oxygen Delivery Method Room Air Height 5 ft 11.5 in Weight 208 lb 3.2 oz BMI 28.6 Body Fat % 35.0 Body Fat Mass 72.8 Fat Free Mass 135.4 Visceral Fat Rating 6.0 Body Water % 46.6 Body Water Mass 97.0 Muscle Mass/Score 128.6 Basal Metabolic Rate/Score 1,860 Intake Visit Reasons: OV PO LSG 06/01/23 Allergies fluoxetine (Prozac) Allergy (Unknown, Verified 06/20/25 14:38) Unknown lisinopril Adverse Reaction (Intermediate, Verified 06/20/25 14:38) epistaxis Wellbutrin Allergy (Unknown, Uncoded 04/27/25 11:23) Unknown Medication List - Last Reconciled 06/20/25 by PETER Gomez albuterol sulfate 2.5 mg (3 mL) inhalation Q4-6H PRN 90 days albuterol sulfate 90 mcg/actuation 1 inh inhalation Q4-6H PRN epinephrine (EpiPen 2-Ismael) 0.3 mg (0.3 mL) IM Q10M PRN fluticasone propion-salmeterol 250-50 mcg/dose (Advair Diskus) 1 inh inhalation BID lidocaine 5% 1 patch topical DAILY nebulizers (Aeroneb Go Nebulizer) As directed thiamine HCl (vitamin B1) 100 mg PO DAILY tirzepatide (weight loss) (Zepbound) 2.5 mg (0.5 mL) subcut QWEEK trazodone 50 mg PO BEDTIME PRN triamcinolone acetonide 0.5% 1 appl topical DAILY HPI Comments Details: 33-year-old male who returns to the office today in follow-up. He is approximately 2 years status post sleeve gastrectomy performed 06/01/[address] Marquez. Weight gain of 11.2lb since last OV in Aug 2024. Initial presentation weight was 258 lb with a BMI of 36. Taking bariatric mvi daily. He was denied Zepbound which was prescribed by PCP. He notes he has increased his alcohol consumption to 4-5 days per week and is interested in cutting back. Meal plan: at last visit in Aug was given- Premier protein ready to drink shake Half premier protein ready to drink shake or protein bar Meal with 7 forks of protein and 7 of vegetables Drinking 64 oz water Exercise plan: nothing in the last 2-3 months gym 3 x per week, treadmill 300 waylon 2 days treadmill at home, 300 calories [facility] Medical History (Updated 04/27/25 @ 11:51 by Maximino Quarles MD) Obstructive sleep apnea Tobacco abuse Back pain Osteochondroma of fibula Right knee pain Vitamin B1 deficiency BMI 35.0-35.9,adult Hematoma of penis Circumcision complication BMI 31.0-31.9,adult Phimosis of penis Balanitis Adjustment disorder, unspecified H. pylori infection Vitamin D deficiency BMI 32.0-32.9,adult BMI 34.0-34.9,adult Obesity Dental trauma Hypertension Asthma GERD (gastroesophageal reflux disease) Surgical History Hx of laparoscopic partial gastrectomy Hx of wisdom tooth extraction Hx of circumcision Family History (Updated 04/27/25 @ 11:45 by Maximino Quarles MD) Father Myocardial infarction Mother HTN (hypertension) Diabetes CVA (cerebral vascular accident) Maternal Grandmother Stomach cancer Myocardial infarction Maternal Grandfather Prostate cancer Maternal Aunt Metastasis to breast Maternal Aunt Breast cancer Brother No problems noted. Brother No problems noted. Brother No problems noted. Brother No problems noted. Sister No problems noted. Daughter No problems noted. Paternal Grandmother Myocardial infarction Social History (Updated 04/27/25 @ 11:47 by Maximino Quarles MD) Household Members: Family Housing: House Are you a primary home health aide caregiver to a significant other at home: No Do you presently have visiting nurse or other home services: No Alcohol intake: current Alcohol intake frequency: a few times a week Comment: aware of trip hazard 3x a week (04/2025) 7-10 drink Patient Tobacco Use Status: Current everyday Tobacco user Tobacco use type: Cigarette Cigarettes Per Day: 1 Years Smoked: smoking 10 years (04/2025) e-Cigarette/Vaping Use: Never Used Second Hand Smoke Exposure: No service: No Current occupational status: employed Cognitive needs: No Hearing needs: No Vision needs: No Assessment & Plan Assessment & Plan (1) S/P laparoscopic sleeve gastrectomy: Comment: May 2023 Code(s): Z98.84 - Bariatric surgery status Category: Surgical (2) Overweight (BMI 25.0-29.9): Code(s): E66.3 - Overweight Category: Medical Plan Pt is interested in meeting with Patito to discuss cutting back from EtOH. Will schedule. Gave Right BMI tian info. Encouraged pt to resume exercise and choose an activity that he likes. Will work on obtaining copy of sleep study to document NIMESH. Pt also has uncontrolled HTN with reading of 162/98 today and multiple readings > 140/90 over the past year. He is not a safe candidate for phentermine. In addition he has documented fatty liver from preop US. May be a candidate for Zepbound. RTC 3-4mo. Texted pt and encouraged him to reach out via text with any questions. Orders: Orders Complete Blood Count Auto Diff Today Z98.84 - Bariatric surgery status Comprehensive Met. Panel Today Z98.84 - Bariatric surgery status Vitamin B12 and Folate Today Z98.84 - Bariatric surgery status IRON PROFILE Today Z98.84 - Bariatric surgery status Zinc Today Z98.84 - Bariatric surgery status Vitamin B1 Today Z98.84 - Bariatric surgery status C Reactive Protein Today Z98.84 - Bariatric surgery status TSH reflex Free T4 Today Z98.84 - Bariatric surgery status Insulin Today Z98.84 - Bariatric surgery status Hemoglobin A1c Today Z98.84 - Bariatric surgery status Lipid Panel Today Z98.84 - Bariatric surgery status Vitamin A Today Z98.84 - Bariatric surgery status Ferritin Today Z98.84 - Bariatric surgery status Vitamin D 25-OH Total Today Z98.84 - Bariatric surgery status
[2025-06-20 14:51] VITALS: BP 162/98; PULSE 86; TEMP 36; O2SAT 99; BMI 28.6
--- OUTSIDE RECORDS SUMMARY | 2025-06-20 20:20 | XMS_ITS | Clinical Summary ---
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 Name Role Phone Maximino Quarles MD Primary Care Provider [phone] Allergies No known active allergies Medications ALBUTEROL [...] protein shake or a protein bar or [place] yogurt or cottage cheese to be consumed [...] [facility] [place] [place] [address] [place] [address] [place] [place] [address] ACO Care Teams Grid Casting Machine Operator Helper Relationship Specialty Start Date End Date Maximino Quarles MD [address] [place] [address] [address] [place] [id number] PCP - General Internal Medicine 10/24/22 Additional Source Comments The information contained in this document represents components of the legal health record. It is not the complete legal health record.[facility]
== END 2025-06-20 15:06 | disposition home or self-care (01) ==
LOC: HO.HBS 14:26
PROVIDERS: Visit Provider Physician Assistant Surgical
DX: E66.3 Overweight (principal); Z68.28 Body mass index [BMI] 28.0-28.9, adult; Z90.3 Acquired absence of stomach [part of]; Z98.84 Bariatric surgery status
CPT/HCPCS: 99214

== ENCOUNTER → 2025-06-20 14:25 | Outpatient (BNVA) | payer OTHER, SELFPAY | PROVIDERS: Visit Provider Physician Assistant Surgical | DX: I10 Essential (primary) hypertension (principal); E66.3 Overweight; Z98.84 Bariatric surgery status; Z68.28 Body mass index [BMI] 28.0-28.9, adult; F17.210 Nicotine dependence, cigarettes, uncomplicated | CPT/HCPCS: 99212 ==